=== PATIENT | female | born 1980 | race Caucasian/White ===

== ENCOUNTER 2021-06-01 13:36 | Outpatient (CLI) | payer BC, SELFPAY ==
--- NOTE | 2021-06-01 13:49 | ECG_ITS ---
Measurements Intervals [place] Rate: 57 P: 51 IN: 131 QRS: 45 QRSD: 93 T: 18 QT: 406 QTc: 398 Interpretive Statements SINUS BRADYCARDIA WITH SINUS ARRHYTHMIA NONSPECIFIC ST ABNORMALITY ABNORMAL ECG NO PREVIOUS ECG AVAILABLE FOR COMPARISON Electronically Signed On 06-01-2021 18:07:46 CDT by Wilmar Werner M.D.
== END 2021-06-01 13:37 | disposition home or self-care (01) ==
LOC: ANHSURGERY 13:40
PROVIDERS: PCP Physician Assistant; Visit Provider Obstetrics & Gynecology
DX: N92.6 Irregular menstruation, unspecified (principal); Z87.891 Personal history of nicotine dependence; R94.31 Abnormal electrocardiogram [ECG] [EKG]
CPT/HCPCS: 36415; 86850; 86900; 86901; 93005

== ENCOUNTER 2021-06-02 00:19 | Day surgery (SDC) | payer BC, SELFPAY ==
[2021-05-27 13:57] VITALS: BMI 26.6
--- NOTE | 2021-05-27 14:07 | PC.NURSE ---
Report to the Outpatient Waiting Room, entrance under the green pavilion located off [facility], at time 8:00 on date 06/02/21. OR Time: 10:00. - You and your visitor will be asked a series of questions to screen for COVID 19 for your protection. - A mask is required within the hospital. One visitor will be allowed to accompany the patient into the hospital. Patients visitor will be instructed to remain with patient at all times or leave the building. We will allow the visitor to come back to the postoperative area when patient is ready. Preoperative COVID Testing Requirements: No COVID Test needed if: (proof is required; if not received patient will have Rapid Test prior to entry) - Patient has received COVID Vaccine at least 14 days prior to procedure date or - Patient has positive COVID test result within last 90 days of surgery date. COVID Test needed if above criteria is not met Patients may have clear liquids (water, carbonated beverages, clear teas, apple juice) until 3 hours prior to surgery (7:00) with a maximum of 20 ounces. - No food from midnight until time of surgery Take the following medications with a SIP of water the morning of surgery: FLUOXETINE Medications to discontinue per physician: N/A Date to take last dose: N/A Please no make-up, nail croatian, hairspray, perfume, deodorant, or body powder the day of surgery. No jewelry (including any body piercings) or valuables the day of surgery, leave them at home. Please take a shower or bath the night before, or the morning of, surgery with an antibacterial soap. Wear comfortable, loose fitting clothing. - Jewelry must be removed prior to entering the operating room. Rings and piercings that are not removed may be cut off. - The hospital will not accept responsibility for valuables. - Please leave all valuables, including medications, at home the day of surgery. If you are going home after surgery, a licensed bung driver must drive you home. - NO public transportation without another adult. - We recommend that an adult stay with you for 24 hours following discharge. - We also recommend that you do not drive, make important decision, drink alcoholic beverages, or take any drugs that were not prescribed by your health care provider for at least 24 hours after your discharge time. Follow any additional instructions given to you from your surgeon. Telephone instructions given to CAMRYN ELAINE and asked if any additional questions and then verbalized understanding. Patient advised to call surgeon office or pre surgery nurse liaison [phone] if any additional questions.
--- NOTE | 2021-06-01 18:06 | PM.IMHP ---
H&P: HPI History of Present Illness Date/Time: 06/01/21 18:06 40-year-old female 4 para 3003 presents with complaints of menstrual cycles lasting 5-7 days 3-5 day heavy clotting cramping underwent endometrial ablation approximately 1 year ago and this has not helped with her or cramping we have discussed multiple options and she desires to proceed with definitive therapy in the form of hysterectomy with ovarian preservation. Will not be performing tubal ligation as she has had this done in the past. Ultrasound revealed no significant abnormalities the uterus is generally enlarged globular recent Pap smear was also normal though she does have a history of abnormal Pap smear for which she had a LEEP conization performed in 2006. Chief Complaint: Menometrorrhagia Review of Systems Review of Systems: All systems reviewed & are unremarkable except as noted in HPI and below PMFSH Past Medical History Medical History Anxiety Depression Dizziness Encounter for IUD insertion 08/14/18 Mirena insertion 05/28/20 removal done in OR Headache HSV-2 infection Missed ab 12/21/10 suction d&c Screening mammogram, encounter for Surgical History Surgical History H/O LEEP 06/14/06 HGSIL, chronic endocervicitis H/O left wrist surgery History of bilateral salpingectomy 07/09/20 History of colposcopy with cervical biopsy 02/21/2008 History of endometrial ablation 07/09/20 hscope d&c/endometrial ablation/lscope salpingectomy History of foot surgery rt foot History of gynecologic surgery 05/28/20 lscope/hscope w/removal of IUD History of tonsillectomy Family History Family History Mother Diabetes mellitus Hypertension Grandparent Breast cancer maternal grandmother Father Diabetes mellitus Sibling Diabetes mellitus brother Social History Social History Smoking packs per day: 2 Smoking cigarettes per day: 40.0 Years smoked: 10 Smoking pack-years: 20.00 Smoking status: Former smoker Tobacco type: cigarettes Smoking end date: 02/20/06 Alcohol intake: never Substance use: never Substance use type: does not use Additional living arrangements comments: spouse 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 Gender identity (if verbalized by the patient): Female Sexual Orientation (if Verbalized by the Patient): Straight or Heterosexual Spiritual care concerns: No Meds Home Medications and Allergies Home Medications Medication Instructions Recorded Confirmed Type fluoxetine 20 mg capsule 20 mg PO DAILY 04/06/21 05/27/21 History Allergies Allergy/AdvReac Type Severity Reaction Status Date / Time diphenhydramine Allergy Intermediate Hypotension Verified 05/27/21 13:57 latex Allergy Intermediate Rash Verified 05/27/21 13:57 Exam Const: General: cooperative, healthy appearing and comfortable Resp: Effort & Inspection: normal respiratory effort Auscultation: clear to auscultation bilaterally Cardio: Rate: regular rate Rhythm: regular rhythm GI: Auscultation: normal bowel sounds : External Female Exam: normal external appearance Speculum Exam - Vagina: normal appearance of the vagina Speculum Exam - Cervix: normal appearance of the cervix Bimanual exam- vagina & uterus: enlarged ( 8-10 week size) and Uterine tenderness Bimanual Exam- Adnexa, other: normal adnexae Assessment and Plan Assessment and plan (1) Menometrorrhagia: Code(s): N92.1 - Excessive and frequent menstruation with irregular cycle Status: Acute (2) History of endometrial ablation: Code(s): Z98.890 - Other specified postprocedural states Status: Acute Additional Plan proceed with laparoscopic hysterectomy with ovarian preservat
[2021-06-02] VITALS (8 sets, daily range): BP systolic 89–115; BP diastolic 51–86; PULSE 66–94; RESP 12–20; TEMP 36.2–37.3; O2SAT 98–100
[2021-06-02] MEDS: ACETAMINOPHEN 500 MG TABLET 1000 MG PO (08:49)
--- NOTE | 2021-06-02 09:03 | WPDANESEPPF ---
Anes - Initial Pre Proc Eval Procedure: Operation Date: 06/02/21 10:00 Proposed Procedures p Robotic Assisted Total Laparoscopic Hysterectomy - Jose Miguel MD Date/Time: 06/02/21 09:03 Surgeon: Jose Miguel MD Pre Op Diagnosis: Irg Vag Bleeding Patient Data Age: 40 Gender: F Height: 1.68 m Weight: 75.4 kg Last Vital Signs Temp 36.6 C 06/02/21 08:57 Pulse 66 06/02/21 08:57 Resp 16 06/02/21 08:57 BP 99/51 L 06/02/21 08:57 Pulse Ox 100 06/02/21 08:57 Allergies Allergy/AdvReac Type Severity Reaction Status Date / Time diphenhydramine Allergy Intermediate Hypotension Verified 06/02/21 08:45 latex Allergy Intermediate Rash Verified 06/02/21 08:45 Home Medications Medication Instructions Recorded Confirmed Type fluoxetine 20 mg capsule 20 mg PO DAILY 04/06/21 06/02/21 History Patient hx anesthesia problems: none Family hx anesthesia problems: none Results Review: All pre-operative results and documents have been reviewed as part of the pre-operative evaluation. [facility] Past Medical History Medical History Anxiety Depression Dizziness Encounter for IUD insertion 08/14/18 Mirena insertion 05/28/20 removal done in OR Headache HSV-2 infection Missed ab 12/21/10 suction d&c Screening mammogram, encounter for Surgical History Surgical History H/O LEEP 06/14/06 HGSIL, chronic endocervicitis H/O left wrist surgery History of bilateral salpingectomy 07/09/20 History of colposcopy with cervical biopsy 02/21/2008 History of endometrial ablation 07/09/20 hscope d&c/endometrial ablation/lscope salpingectomy History of foot surgery rt foot History of gynecologic surgery 05/28/20 lscope/hscope w/removal of IUD History of tonsillectomy Family History Family History Mother Diabetes mellitus Hypertension Grandparent Breast cancer maternal grandmother Father Diabetes mellitus Sibling Diabetes mellitus brother Social History Social History Smoking packs per day: 2 Smoking cigarettes per day: 40.0 Years smoked: 10 Smoking pack-years: 20.00 Smoking status: Former smoker Tobacco type: cigarettes Smoking end date: 02/20/06 Alcohol intake: never Substance use: never Substance use type: does not use Living arrangements: with family Additional living arrangements comments: spouse 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 Gender identity (if verbalized by the patient): Female Sexual Orientation (if Verbalized by the Patient): Straight or Heterosexual Spiritual care concerns: No Anes - Eval Final PreProcedure Day of Procedure 06/02/21 09:03 Patient weight: overweight Heart: regular rate and rhythm Lungs: clear to auscultation and normal air movement Airway: Mallampati scale class II Neurological: alert and oriented Last oral intake: >/= 8 hours ASA classification: III Emergent: no Anesthetic plan: proceed Anesthesia type and monitoring: general ETT and standard monitoring Results Review: All pre-operative results and documents have been reviewed as part of the pre-operative evaluation. Informed Consent: The patient's anesthetic plan and its attendant risks and benefits were discussed with the patient/family/POA. Questions were solicited and answers provided to the satisfaction of the patient/family/POA.
[2021-06-02] MEDS: LACTATED RINGERS 1,000 ML 30 ML IV CONT ×2 (09:15→11:49)
[2021-06-02] MEDS: KETOROLAC 15 MG/ML VIAL (*BKC) IV PUSH (09:15)
--- NOTE | 2021-06-02 09:27 | WPDHPUPDATE1 ---
History and Physical Update Update Date/Time: 06/02/21 09:27 History and Physical has been reviewed, including an updated exam of the patient. There are NO changes in the patient's condition. Risks, benefits, and alternatives have been discussed and questions answered. Patient agrees to proceed with procedure.
--- NOTE | 2021-06-02 11:34 | PM.OP ---
Procedure Note - Brief Procedure Note - Brief Date of procedure: 06/02/21 Pre-op diagnosis: Irg Vag Bleeding Failed endometrial ablation Post-op diagnosis: Same Procedure performed: 1. Robotic assisted laparoscopic hysterectomy Description of procedure: Patient prepped see. Cervical concerns placed for tumor throughout the case. Abdominal trocar sites were then marked placed under direct visualization. Once the trocars were placed or tested Kayla system. Surgeon moved to the console and using the bipolar the utero-ovarian ligaments bilaterally cauterized and cut and was then cauterized and cut as well. Bladder flap was developed without difficulty and the uterine vessels were skeletonized. These were then cauterized cut to decrease the vascular supply to the uterus. Anterior cul-de-sac was then entered and cut circumferentially around the cervix to separate the cervix from the vagina. Uterus was delivered into the vagina and the cuff was closed using a V lock suture from the right angle to midline in the left angle to midline. Irrigation is undertaken there was no bleeding. Gas was allowed to escape incisions approximated using 4-0 Monocryl after the instruments were removed. Patient sent recovery room in stable condition. Anesthesia: GETA Surgeon: Jose Miguel MD Estimated blood loss (mL): 50 Drains: No Packing: No Pathology: Yes Complications: No immediate complications Condition: Stable Disposition: PACU Findings: Mildly nauseous uterus. Ovaries without abnormality. Tubes surgically absent from prior tubal ligation.
[2021-06-02] MEDS: fentaNYL CITRATE INJ (*CRX) 100 MCG/2 ML VIAL 25 MCG IV PUSH ×3 (12:30→12:45)
[2021-06-02] MEDS: LORATADINE 10 MG TABLET PO (12:37)
[2021-06-02] MEDS: DEXTROSE 5%/LACTATED RINGERS 1,000 ML 125 ML IV CONT (13:23)
--- NOTE | 2021-06-02 13:27 | OBPPTRN ---
1302 Patient transferred to post room #278 via bed. Support person present. Oriented to unit, room, information board, rooming in, admission packet and security measures. Patient verbalizes understanding.
[2021-06-02] MEDS: KETOROLAC 30 MG/ML VIAL (*BKC) IV PUSH (15:38)
[2021-06-02] MEDS: HYDROcodone/acetaminophen (*CRX) 5-325 MG TABLET 1 TAB PO (20:42)
[2021-06-03] VITALS: BP 80/40; PULSE 71; RESP 16; TEMP 36.7; O2SAT 98
[2021-06-03] MEDS: SODIUM CHLORIDE 0.9% IV 500 ML IV CONT (01:02)
[2021-06-03 01:14] LABS: Basophils Percent Auto 0.4 % (0.2-1.2); Eosinophils Absolute Auto 0.1 K/mm3 (0-0.3); Eosinophils Percent Auto 0.6 % (0-4.4); Hematocrit 35.1 % (37.0-47.0); Hemoglobin 11.7 g/dL (12.0-15.0); Immature Granulocyte Absolute 0.04 K/mm3 (0.00-0.031); Immature Granulocyte Percent A 0.4 % (0-0.5); Lymphocytes Absolute Auto 1.73 K/mm3 (0.9-3.2); Lymphocytes Percent Auto 16.8 % (18.3-44.2); Mean Corpuscular HGB Conc 33.3 g/dl (32-36); Mean Corpuscular Hemoglobin 30.6 pg (26-34); Mean Corpuscular Volume 91.9 fl (80-100); Mean Platelet Volume 10.8 fl (7.4-10.4); Monocytes Absolute Auto 0.5 K/mm3 (0.1-0.6); Monocytes Percent Auto 4.5 % (2.6-8.5); Neutrophils Percent Auto 77.3 % (45.5-73.1); Platelet Count Result 175 k/mm3 (150-375); Red Blood Count 3.82 M/mm3 (4.2-5.4); Red Cell Distribution Width 12.4 % (11.5-14.5); White Blood Count 10.3 K/mm3 (4.5-10.0)
[2021-06-03 01:24] LABS: Anion Gap 6 mmol/L (8-16); Blood Urea Nitrogen 7 mg/dL (7-17); Carbon Dioxide 22 mmol/L (22-30); Chloride 105 mmol/L (98-107); Estimated CRCL calculation 99 ml/min; Estimated Glomerular Filt Rate > 60; Glucose 168 mg/dL (65-110); Potassium 3.5 mmol/L (3.4-5.0); Sodium 133 mmol/L (137-145)
[2021-06-03 03:30] VITALS: BP 81/48; PULSE 70; RESP 16; TEMP 36.8; O2SAT 97
[2021-06-03] MEDS: DEXTROSE 5%/LACTATED RINGERS 1,000 ML 125 ML IV CONT (06:15)
[2021-06-03] MEDS: IBUPROFEN 600 MG TABLET PO (06:19)
--- NOTE | 2021-06-03 07:55 | PM.DS ---
DS: Admitting Diagnosis Discharge Date 06/03/2021 Admitting Diagnosis Menometrorrhagia/failed endometrial ablation DS: Summary Hospital Course Hospital Course: routine postop course. persistent issue with postural hypotension which she will f/u with PCP. Has seen cardiology in past as well. Time Spent with Patient Time attestation: Total time spent providing and/or coordinating discharge services: Exam GI: Inspection: incision (c/d/i) DS: Data Data Completed and Pending Pending studies at discharge: Pending at discharge 06/02/21 11:14 Surgical [PTH] Routine Labs on day of discharge: Labs from last 24 hours 06/03/21 06/03/21 01:06 01:06 WBC 10.3 H RBC 3.82 L Hgb 11.7 L Hct 35.1 L MCV 91.9 MCH 30.6 MCHC 33.3 RDW 12.4 Plt Count 175 MPV 10.8 H Immature Gran % (Auto) 0.4 Neut % (Auto) 77.3 H Lymph % (Auto) 16.8 L [place] % (Auto) 4.5 Eos % (Auto) 0.6 Baso % (Auto) 0.4 Lymph # (Auto) 1.73 [place] # (Auto) 0.5 Eos # (Auto) 0.1 Baso # (Auto) 0.0 Abs Immat Gran (auto) 0.04 H Absolute Neuts (auto) 8.0 H Absolute Nucleated RBC 0.0 Nucleated RBC % 0.0 Sodium 133 L Potassium 3.5 Chloride 105 Carbon Dioxide 22 Anion Gap 6 L BUN 7 Creatinine 0.60 L Estim Creat Clear Calc 99 Estimated GFR > 60 Glucose 168 H Calcium 8.0 L Discharge Plan Discharge Patient Disposition: Home, Self-Care Stand Alone Forms: General Discharge Instructions Follow-up/Referrals: Jose Miguel MD [Physician] - 2 Weeks Discharge Medications: New hydrocodone-acetaminophen 5-325 mg Tablet 1 tablet PO Q3H Qty: 20 RF: 0 ibuprofen 600 mg Tablet 600 mg PO Q6H PRN (Reason: Cramping) Qty: 30 RF: 0 Continued fluoxetine 20 mg capsule 20 mg PO DAILY RF: 0
[2021-06-03] MEDS: FLUoxetine HCL 20 MG CAPSULE PO (07:57)
[2021-06-03 08:00] VITALS: BP 101/59; PULSE 84; RESP 18; TEMP 36.9
--- NOTE | 2021-06-03 10:20 | P.PNAN_ITS ---
Anes - Prog Note Post-Op Date/Time: 06/03/21 10:20 Cardiovascular status: normal Respiratory status: normal Airway patency: baseline Mental status: baseline Post-Op hydration status: normal Vital Signs: Last Vital Signs Temp 36.9 C 06/03/21 08:00 Pulse 84 06/03/21 08:00 Resp 18 06/03/21 08:00 BP 101/59 L 06/03/21 08:00 Pulse Ox 97 06/03/21 03:30 Pain Score (VAS): 2 I/O: Intake & Output 06/02/21 06/03/21 06/03/21 23:59 07:59 15:59 Intake Total 1720 500 300 Balance 1720 500 300 Laboratory Tests 06/03/21 01:06 06/03/21 01:06 06/03/21 06/03/21 01:06 01:06 WBC 10.3 H RBC 3.82 L Hgb 11.7 L Hct 35.1 L MCV 91.9 MCH 30.6 MCHC 33.3 RDW 12.4 Plt Count 175 MPV 10.8 H Immature Gran % (Auto) 0.4 Neut % (Auto) 77.3 H Lymph % (Auto) 16.8 L [place] % (Auto) 4.5 Eos % (Auto) 0.6 Baso % (Auto) 0.4 Lymph # (Auto) 1.73 [place] # (Auto) 0.5 Eos # (Auto) 0.1 Baso # (Auto) 0.0 Abs Immat Gran (auto) 0.04 H Absolute Neuts (auto) 8.0 H Absolute Nucleated RBC 0.0 Nucleated RBC % 0.0 Sodium 133 L Potassium 3.5 Chloride 105 Carbon Dioxide 22 Anion Gap 6 L BUN 7 Creatinine 0.60 L Estim Creat Clear Calc 99 Estimated GFR > 60 Glucose 168 H Calcium 8.0 L Post-procedural complaints: none Patient Feedback: Patient satisfied with anesthetic care.
--- NOTE | 2021-06-03 11:28 | PC.NURSE ---
1115: Dr. Miguel notified of discharge. Informed that pt. was still dizzy after standing for few minutes. Dizziness goes away with sitting. States that she had this happen after her last infant was born. Dizziness lasted for months. Dr. Miguel aware of dizziness complaints and states he instructed pt. to call primary physician when she gets home and have this checked out. Pt. verbalized understanding. Very comfortable with discharge. States that she has lots of help at home and will take her time upon standing. No questions or concerns voiced. Very pleasant and cooperative.
== END 2021-06-03 11:40 | disposition home or self-care (01) ==
LOC: ANHSURGERY 09:18 → ANHOB2 06-03 07:59
PROVIDERS: Obstetrics & Gynecology; PCP Physician Assistant; Visit Provider Obstetrics & Gynecology
PROC: (CPT 58570; principal; 2021-06-02 10:00)
DX: N92.1 Excessive and frequent menstruation with irregular cycle (principal); N85.8 Other specified noninflammatory disorders of uterus; F41.8 Other specified anxiety disorders; Z87.891 Personal history of nicotine dependence
CPT/HCPCS: 58570; S2900; 36415; 80048; 85025; 88307; 99199; A9270; J1100; J1170; J1885; J2250; J2405; J2704; J2710; J3010; J7030; J7040; J7120; J7121

== ENCOUNTER 2021-06-10 07:52 | Outpatient (CLI) | payer BC, SELFPAY ==
--- NOTE | ~2021-06-10 | MM_ITS ---
EXAMINATION: MM screening mona BI w irma HISTORY: Screening mammogram TECHNIQUE: Craniocaudal and mediolateral oblique 3-D tomosynthesis images were obtained and synthetic 2-D images were generated. CAD analysis was submitted and interpreted. COMPARISON: No prior mammogram is available for comparison at this institution. BREAST PARENCHYMAL COMPOSITION: There are scattered areas of fibroglandular density. FINDINGS: There is a focal 5 mm irregular increased density in the posterior outer mid right breast ( craniocaudal Tomosynthesis image 31/64), without correlate on the MLO view. Diagnostic right mammogra m is recommended, with ultrasound if required. Otherwise no suspicious mass, architectural distortion, malignant calcification, skin thickening or r etraction of either breast is evident. IMPRESSION: 1. 5 mm irregular increased density in posterior outer mid right breast on craniocaudal view only 2. Diagnostic right mammogram is recommended, with ultrasound if required BI-RADS Category 0: Incomplete: Needs additional imaging evaluation. Reviewed, dictated and finalized at location A. IMPRESSION: 1. 5 mm irregular increased density in posterior outer mid right breast on cran iocaudal view only 2. Diagnostic right mammogram is recommended, with ultrasound if required BI-RADS Category 0: Incomplete: Needs additional imaging evaluation.
== END 2021-06-10 07:53 | disposition home or self-care (01) ==
PROVIDERS: PCP Physician Assistant; Visit Provider Obstetrics & Gynecology
DX: Z12.31 Encounter for screening mammogram for malignant neoplasm of breast (principal); R92.8 Other abnormal and inconclusive findings on diagnostic imaging of breast
CPT/HCPCS: 77063; 77067

== ENCOUNTER 2021-06-15 12:29 | Outpatient (CLI) | payer BC, SELFPAY ==
--- NOTE | ~2021-06-15 | MMUS_ITS ---
EXAMINATION: MM diagnostic mona RT w irma, US breast RT limited HISTORY: Follow-up right breast asymmetry TECHNIQUE: Additional 3-D tomosynthesis images of the right breast were performed and synthetic 2-D i mages were generated. CAD analysis was submitted and interpreted. High resolution Limited right breas t ultrasound was performed. COMPARISON: 06/10/2021 BREAST PARENCHYMAL COMPOSITION: Breast composed of scattered areas of fibroglandular density FINDINGS: MAMMOGRAPHIC FINDINGS: There are no suspicious masses, calcifications or architectural distortion in the right breast to sug gest malignancy. ULTRASOUND: Limited right breast ultrasound: Normal heterogeneous echotexture without focal solid or cystic mass. IMPRESSION: 1. No evidence for malignancy in the right breast. 2. Routine yearly screening mammogram and regular clinical breast examination are recommended. BI-RADS Category 1: Negative Reviewed, dictated and finalized at location A. IMPRESSION: 1. No evidence for malignancy in the right breast. 2. Routine yearly screening mammogram and regular clinical breast examination a re recommended. BI-RADS Category 1: Negative
== END 2021-06-15 12:30 | disposition home or self-care (01) ==
PROVIDERS: PCP Physician Assistant; Visit Provider Obstetrics & Gynecology
DX: R92.8 Other abnormal and inconclusive findings on diagnostic imaging of breast (principal)
CPT/HCPCS: 76642; 77061; 77065; G0279

== ENCOUNTER 2022-08-02 15:14 | Outpatient (CLI) | payer BC, SELFPAY ==
--- NOTE | ~2022-08-02 | MM_ITS ---
EXAMINATION: MM screening mona BI w irma HISTORY: Screening mammogram TECHNIQUE: Craniocaudal and mediolateral oblique 3-D tomosynthesis images were obtained and synthetic 2-D images were generated. CAD analysis was submitted and interpreted. COMPARISON: June 15, 2021 diagnostic right mammogram and limited right breast ultrasound examination May 21, 2021 bilateral screening mammogram BREAST PARENCHYMAL COMPOSITION: There are scattered areas of fibroglandular density. FINDINGS: There is no evidence of suspicious mass, calcification, or architectural distortion to sugg est malignancy in either breast. There has been no suspicious interval change. IMPRESSION: 1. No mammographic evidence of malignancy. 2. Recommend routine screening mammography in one year. BI-RADS Category 1: Negative Reviewed, dictated and finalized at location A.
== END 2022-08-02 15:15 | disposition home or self-care (01) ==
PROVIDERS: PCP Physician Assistant; Visit Provider Obstetrics & Gynecology
DX: Z12.31 Encounter for screening mammogram for malignant neoplasm of breast (principal)
CPT/HCPCS: 77063; 77067

== ENCOUNTER 2023-01-18 09:25 | Emergency (ER) | payer BC, SELFPAY ==
[2023-01-18] VITALS (17 sets, daily range): BP systolic 108–113; BP diastolic 71–83; PULSE 56–92; RESP 12–24; TEMP 37; O2SAT 97–100
--- NOTE | ~2023-01-18 | XR_ITS ---
Clinical Indication: Chest pain AP and lateral views of the chest: Comparison: 11/13/2006 Findings: The lungs are clear, without evidence of focal consolidation or pleural effusion. Cardiome diastinal silhouette is within normal limits. Bones and soft tissues are unremarkable. Impression: Normal chest. Reviewed, dictated and finalized at [facility]. [employer]MENT [employer] Impression: Normal chest.
--- NOTE | 2023-01-18 09:31 | ECG_ITS ---
Measurements Intervals [place] Rate: 85 P: 72 FL: 125 QRS: 23 QRSD: 89 T: 4 QT: 355 QTc: 424 Interpretive Statements SINUS RHYTHM WITH MARKED SINUS ARRHYTHMIA POSSIBLE LEFT ATRIAL ENLARGEMENT BORDERLINE ST-T WAVE ABNORMALITY- INFERIOR LEADS BASELINE ARTIFACT- I, II, III, AVR BORDERLINE ECG COMPARED TO ECG 06/01/2021 13:59:55 SINUS RHYTHM NOW PRESENT Electronically Signed On 01-18-2023 9:53:54 OUTREACH PROFESSIONAL by Moustapha Reza D.O.
--- NOTE | 2023-01-18 09:45 | ED.CHESTPAIN ---
HPI - Chest Pain General Chief Complaint: Chest Pain Stated Complaint: Chest pain Time Seen by Provider: 01/18/23 09:31 History of Present Illness HPI narrative: 42-year-old female with a history of low blood pressure present in the department for evaluation of substernal chest pain that radiates to her left arm. Patient reports symptoms started 1 hour prior to arrival. Patient denies any prior history of coronary artery disease. Patient has had a negative stress test. Patient denies any prior history of PE or DVT. Patient denies any prior history of gastric reflux or heartburn. She patient states she has had no recent coughs colds fevers or injuries. Related Data Home Medications Medication Instructions Recorded Confirmed fluoxetine 10 mg capsule mg 01/18/23 Allergies Allergy/AdvReac Type Severity Reaction Status Date / Time diphenhydramine Allergy Intermediate Hypotension Verified 01/18/23 09:33 latex Allergy Intermediate Rash Verified 01/18/23 09:33 Review of Systems Review of Systems: All systems reviewed & are unremarkable except as noted in HPI and below PMFSH Past Medical History Medical History (Updated 01/18/23 @ 13:46 by Linus Dunn MD) Anxiety Breast density Depression Dizziness Encounter for IUD insertion 08/14/18 Mirena insertion 05/28/20 removal done in OR Headache HSV-2 infection Missed ab 12/21/10 suction d&c Screening mammogram, encounter for Screening mammogram, encounter for Surgical History Surgical History H/O LEEP 06/14/06 HGSIL, chronic endocervicitis H/O left wrist surgery History of bilateral salpingectomy 07/09/20 History of colposcopy with cervical biopsy 02/21/2008 History of endometrial ablation 07/09/20 hscope d&c/endometrial ablation/lscope salpingectomy History of foot surgery rt foot History of gynecologic surgery 05/28/20 lscope/hscope w/removal of IUD History of robot-assisted laparoscopic hysterectomy (~06/02/21) RATLH failed ablation History of tonsillectomy Family History Family History Mother Diabetes mellitus Hypertension Grandparent Breast cancer maternal grandmother Father Diabetes mellitus Sibling Diabetes mellitus brother Social History Social History (Updated 04/12/22 @ 07:54 by Traci Dueñas, [facility]) Smoking packs per day: 2 Smoking cigarettes per day: 40.0 Years smoked: 10 Smoking pack-years: 20.00 Smoking status: Former smoker Tobacco type: cigarettes Smoking end date: 02/20/06 Alcohol intake: never Substance use: never Substance use type: does not use Living arrangements: other Additional living arrangements comments: Occupation/Education: occupation 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 HEAD: normocephalic, atraumatic. EYES: PERRLA/EOMI, conjunctivae clear. NOSE: Normal no drainage EARS:TMS clear with good light reflex. THROAT: Pharynx clear, no exudate. NECK: Supple. No adenopathy, no masses. RESPIRATORY: Airway patent, respirations nonlabored. Clear to auscultation bilaterally, no rales, rhonchi, wheezing. CARDIOVASCULAR: Regular rate and rhythm without murmurs rubs or gallops. ABDOMINAL: Soft, nontender, nondistended, normal bowel sounds MUSCULOSKELETAL: reproducible epigastric and chest wall tenderness to palpation NEURO: Alert. Cranial nerves II through XII intact. Good gait. Good coordination SKIN: Warm, dry. Normal Color Course Course Emergency Course: A 42-year-old female presenting to the emergency department for evaluation of chest pain. Patient is afebrile with no leuk
[2023-01-18 09:46] LABS: Basophils Absolute Auto 0.1 K/mm3 (0.0-0.1); Basophils Percent Auto 0.6 % (0.2-1.2); Eosinophils Absolute Auto 0.1 K/mm3 (0-0.3); Eosinophils Percent Auto 1.8 % (0-4.4); Hematocrit 40.8 % (37.0-47.0); Hemoglobin 13.7 g/dL (12.0-15.0); Immature Granulocyte Absolute 0.02 K/mm3 (0.00-0.031); Immature Granulocyte Percent A 0.3 % (0-0.5); Lymphocytes Absolute Auto 2.18 K/mm3 (0.9-3.2); Lymphocytes Percent Auto 27.8 % (18.3-44.2); Mean Corpuscular HGB Conc 33.6 g/dl (32-36); Mean Corpuscular Hemoglobin 30.2 pg (26-34); Mean Corpuscular Volume 90.1 fl (80-100); Mean Platelet Volume 10.8 fl (7.4-10.4); Monocytes Absolute Auto 0.5 K/mm3 (0.1-0.6); Monocytes Percent Auto 5.9 % (2.6-8.5); Neutrophils Percent Auto 63.6 % (45.5-73.1); Platelet Count Result 224 k/mm3 (150-375); Red Blood Count 4.53 M/mm3 (4.2-5.4); Red Cell Distribution Width 12.6 % (11.5-14.5); White Blood Count 7.8 K/mm3 (4.5-10.0)
[2023-01-18] MEDS: HYDROmorphone HCL INJ (*CRX) 1 MG/ML SYR 0.5 MG IV PUSH (09:51)
[2023-01-18 09:56] LABS: INR 0.9; Prothrombin Time 12.7 Seconds (11.1-14.7)
[2023-01-18 09:58] LABS: Partial Thromboplastin Time 25.5 SECONDS (22.3-36.8)
[2023-01-18 10:04] LABS: Alanine Aminotransferase 17 U/L (6-35); Albumin Level 4.4 g/dL (3.5-5.1); Alkaline Phosphatase 55 U/L (38-126); Anion Gap 9 mmol/L (8-16); Aspartate Amino Transferase 23 U/L (14-36); Blood Urea Nitrogen 6 mg/dL (7-17); Calcium 9.1 mg/dL (8.4-10.2); Carbon Dioxide 24 mmol/L (22-30); Chloride 104 mmol/L (98-107); Estimated CRCL calculation 97 ml/min; Estimated Glomerular Filt Rate > 60; Glucose 98 mg/dL (65-110); Lipase 88 U/L (23-300); Sodium 137 mmol/L (137-145)
[2023-01-18 10:14] LABS: Troponin I < 0.012 ng/mL (0.000-0.034)
[2023-01-18 10:15] LABS: D Dimer 0.32 ug/mL (<0.48)
[2023-01-18 10:49] LABS: Influenza A QL RT-PCR Negative (Negative); Influenza B QL RT-PCR Negative (Negative); RSV RNA, RT-PCR Negative (Negative); SARS-CoV-2 RNA PCR Negative (Negative)
[2023-01-18 13:05] LABS: Troponin I < 0.012 ng/mL (0.000-0.034)
[2023-01-18] MEDS: KETOROLAC 30 MG/ML VIAL (*BKC) IV PUSH (13:29)
== END 2023-01-18 14:09 | disposition home or self-care (01) ==
PROVIDERS: Physician Assistant; Emergency Provider Emergency Medicine; PCP Physician Assistant
DX: R07.89 Other chest pain (principal); Z79.899 Other long term (current) drug therapy; Z87.891 Personal history of nicotine dependence; Z20.822 Contact with and (suspected) exposure to COVID-19
CPT/HCPCS: 36415; 71046; 80053; 83690; 84484; 85025; 85380; 85610; 85730; 87637; 93005; 96374; 96375; 99284; J1170; J1885

== ENCOUNTER 2023-07-24 15:45 | Outpatient (RCR) | payer BC, SELFPAY ==
--- NOTE | 2023-04-28 13:49 | PTOPEVAL1 ---
Assessment and note entered by José Miguel Wallis, PT, DPT Evaluation Information Assessment Status Evaluation Diagnosis R hip pain Onset 2 years Subjective Information Pt reports anterior hip pain, in her inner groin area, pelvic girdle pain. She states it has progressed to where she has pain all the time now. She reports pain for the last 2 years, has gotten worse over the last 6 months, and increasingly worse in the last 2 months. Pt used to be a runner and has since had to quit because of increasing hip pain. Sitting crossed legged relieves her pain . Sitting for a long time will increase her pain and standing will decrease it a little bit. She does report a history of a R hip labral tear. Reported Pain Level Pain Score 5: Self Report Assessment PT Clinical Summary Christi presents to therapy today for her initial evaluation with a diagnosis of R hip pain. Today she demonstrates nick hip ROM and strength that is limited by pain in all directions. She demonstrates pelvic asymmetries in supine, with was able to be corrected with muscle energy techniques. She demonstrates a positive hip labral irritation nick with special test. She also reports various places of pain throughout her pelvis, with resistance. A consultation from a pelvic floor therapist is indicated to rule out pelvic floor involvement. Skilled therapy services are indicated to address pelvic instability, hip weakness, malalignment, and to return to PLOF. Plan of Care Interventions Electrical Stimulation,Gait Training,Hot Pack/Cold Pack,Manual Therapy,Neuro Re-education,Patient/ Caregiver Educati,Therapeutic Activities, Therapeutic Exercise PT Services Indicated Yes Treatment Frequency and 1-2x/wk for 12 visits Duration These treatments will address the objective and functional deficits as defined above. The patient will be advanced safely and appropriately in order for the patient to progress towards his/her prior level of function. Additional exercises will be introduced and as well as a comprehensive home exercise program upon discharge, if needed, ?to ensure carryover of functional gains achieved in the clinic. This treatment plan has been reviewed and agreement upon by the patient.
--- NOTE | 2023-05-19 14:49 | OPREHPOC ---
Outpatient Therapy Plan of Care This is a Multidisciplinary Plan of Care that may contain components documented by all disciplines (PT, OT, and ST.) PT Problem 1 PT Problem #1 Knowledge Deficit PT Goal 1 Goal 1. Independent HEP Target Visit 3 PT Problem 2 PT Problem #2 Pain PT Goal 1 Goal 1. Pain with palpation of pelvic floor no higher than 1/10 2. Pain with running no higher than 2/10 Target Visit 6 PT Problem 3 PT Problem #3 Impaired Strength PT Goal 1 Goal 1. Improve pelvic floor strength to 4/5 to decrease incontinence 2. Improve pelvic floor endurance to 10 seconds to decrease incontinence Target Visit 6 PT Problem 4 PT Problem #4 Impaired Functional ADLs PT Goal 1 Goal 1. Patient will report no more than 1 instance of incontinence in a 2 week time frame 2. Patient will void no more than 8 times a day and 1 time at night 3. Patient will report no activity limitations due to hip or pelvic pain Target Visit 6
--- NOTE | 2023-05-19 14:49 | PTOPPROG ---
Assessment and note entered by Heidi Grigsby DPT Evaluation Information Assessment Status Progress Diagnosis R hip pain Onset 2 years Subjective Information Pt reports anterior hip/groin pain for several years that is gradually worsening. Increases with sitting for prolonged periods like on bleachers. Cannot run due to pain. Highest pain 8/10 and lowest 4/10. Some improvement after SIJ MET a few weeks ago. Voids more than 10 times a day and at least 2 times at night. Can hold urge to void variable amounts of time, sometimes gets urge incontinence and sometimes can hold up to 5 minutes. Also gets stress incontinence. After voiding will have more incontinence. Incontinence 3-4 times a day and needs to change clothes/ underwear 2-3 times a day. Works from home so does not wear pads. Denies pain with urination. BM 1-2 times a day, no pain and no fecal incontinence. History of pelvic pain as long as she can remember , pain with sex, tampon, pap smears. Difficulty keeping tampons in. Pain with sex up to 6/10. Pt has been 4 times, 3 deliveries. All vaginal deliveries and had tearing with her first two. Diagnosed with endometriosis, ablation, tubal ligation, hysterectomy in 2021. No previous b/b issues. Patient goal: get back to running Assessment PT Clinical Summary The patient is presenting to skilled therapy with anterior R hip pain, a history of pelvic pain, as well as mixed incontinence. She presents with increased pelvic floor muscle tone, decreased pelvic floor strength and endurance, and SIJ impairments which are contributing to her pain and difficulty with activities like sitting and running and to her daily incontinence and need to change clothes. She will highly benefit from therapy to address these impairments in order to reduce pain, reduce incontinence, and improve overall function. Plan of Care Interventions Electrical Stimulation,Gait Training,Hot Pack/Cold Pack,Manual Therapy,Neuro Re-education,Patient/ Caregiver Education,Therapeutic Activities, Therapeutic Exercise PT Services Indicated Yes Treatment Frequency and 1-2 times a week for 5-10 visits Duration These treatments w
--- NOTE | 2023-06-12 14:26 | OPREHPOC ---
Outpatient Therapy Plan of Care This is a Multidisciplinary Plan of Care that may contain components documented by all disciplines (PT, OT, and ST.) PT Problem 1 PT Problem #1 Knowledge Deficit PT Goal 1 Goal 1. Independent HEP Target Visit 3 Progress Met PT Problem 2 PT Problem #2 Pain PT Goal 1 Goal 1. Pain with palpation of pelvic floor no higher than 1/10 2. Pain with running no higher than 2/10 Target Visit 12 Progress Met Comment 1. improved to 2/10 2. pt to try running after this visit PT Problem 3 PT Problem #3 Impaired Strength PT Goal 1 Goal 1. Improve pelvic floor strength to 4/5 to decrease incontinence 2. Improve pelvic floor endurance to 10 seconds to decrease incontinence Target Visit 12 Progress Partially Met Comment 1. improved to 3/5 2. met PT Problem 4 PT Problem #4 Impaired Functional ADLs PT Goal 1 Goal 1. Patient will report no more than 1 instance of incontinence in a 2 week time frame 2. Patient will void no more than 8 times a day and 1 time at night 3. Patient will report no activity limitations due to hip or pelvic pain Target Visit 12 Progress Partially Met
--- NOTE | 2023-06-12 14:26 | PTOPPROG ---
Assessment and note entered by Heidi Grigsby DPT Evaluation Information Assessment Status Progress Diagnosis R hip pain Onset 2 years Subjective Information Pt reports a drastic improvement over the last few weeks with pelvic floor therapy. States she can function throughout the day without needing taking ibuprofen. Also thinks her urinary urgency has improved and can hold 30-45 minutes depending on the situation. Highest pain in the last week 4/ 10 and lowest 0/10 and seems to be more in her lateral hip now. Denies urine leakage. Feels more therapy would be helpful at this time. Assessment PT Clinical Summary The patient has made excellent progress in therapy and reports significantly decreased pain overall, decreased urgency, and no incontinence. She demonstrates improved hip and core strength, improved pelvic floor strength and endurance, and decreased pelvic floor pain with palpation. Due to her progress but continued pain, plan to continue therapy to further address pain and urinary symptoms in order to return to full function. Plan of Care Interventions Electrical Stimulation,Gait Training,Hot Pack/Cold Pack,Manual Therapy,Neuro Re-education,Patient/ Caregiver Education,Therapeutic Activities, Therapeutic Exercise PT Services Indicated Yes Treatment Frequency and 1 time a week for 6 visits Duration These treatments will address the objective and functional deficits as defined above. The patient will be advanced safely and appropriately in order for the patient to progress towards his/her prior level of function. Additional exercises will be introduced and as well as a comprehensive home exercise program upon discharge, if needed, ?to ensure carryover of functional gains achieved in the clinic. This treatment plan has been reviewed and agreement upon by the patient.
--- NOTE | 2023-07-10 11:04 | PCPTNOTE ---
Patient called to cancel appointment on 07/10/23 due to illness.
--- NOTE | 2023-07-24 16:25 | OPREHPOC ---
Outpatient Therapy Plan of Care This is a Multidisciplinary Plan of Care that may contain components documented by all disciplines (PT, OT, and ST.) PT Problem 1 PT Problem #1 Knowledge Deficit PT Goal 1 Goal 1. Independent HEP Target Visit 3 Progress Met PT Problem 2 PT Problem #2 Pain PT Goal 1 Goal 1. Pain with palpation of pelvic floor no higher than 1/10 2. Pain with running no higher than 2/10 Target Visit 12 Progress Met PT Problem 3 PT Problem #3 Impaired Strength PT Goal 1 Goal 1. Improve pelvic floor strength to 4/5 to decrease incontinence 2. Improve pelvic floor endurance to 10 seconds to decrease incontinence Target Visit 12 Progress Partially Met Comment 1. improved to 3/5 2. met PT Problem 4 PT Problem #4 Impaired Functional ADLs PT Goal 1 Goal 1. Patient will report no more than 1 instance of incontinence in a 2 week time frame 2. Patient will void no more than 8 times a day and 1 time at night 3. Patient will report no activity limitations due to hip or pelvic pain Target Visit 12 Progress Met
--- NOTE | 2023-07-24 16:25 | PTOPDC ---
Assessment and note entered by Heidi Grigsby DPT Evaluation Information Assessment Status Discharge Diagnosis R hip pain Onset 2 years Subjective Information Highest pain in last week 2/10 after playing kickball with her kids. Lowest pain 0/10. Has been able to do some running intervals. No internal pelvic pain at this time. Reported Pain Level Pain Score 1: Self Report Assessment PT Clinical Summary The patient has made excellent progress in therapy and reports pain 2/10 highest in the last week. No urinary issues at this time. She reports no pelvic pain upon exam. She has also been able to interval running. Due to her progress, plan for discharge at this time. She has been educated in a thorough HEP and to follow up with MD and/or PT as this time. Plan of Care PT Services Indicated No
== END 2023-07-25 07:57 | disposition home or self-care (01) ==
LOC: ANHGOSHPT 15:45
PROVIDERS: PCP Physician Assistant; Visit Provider Obstetrics & Gynecology
DX: M25.559 Pain in unspecified hip (principal)
CPT/HCPCS: 97110; 97112; 97140; 97161; 97530

== ENCOUNTER 2023-09-06 14:04 | Outpatient (CLI) | payer BC, SELFPAY ==
--- NOTE | ~2023-09-06 | MM_ITS ---
EXAMINATION: MM screening mona BI w irma HISTORY: Screening TECHNIQUE: Craniocaudal and mediolateral oblique 3-D tomosynthesis images were obtained and synthetic 2-D images were generated. CAD analysis was submitted and interpreted. COMPARISON: 06/10/2021. BREAST PARENCHYMAL COMPOSITION: Not dense: There are scattered areas of fibroglandular density. FINDINGS: There is no evidence of suspicious mass, calcification, or architectural distortion to sugg est malignancy in either breast. There has been no suspicious interval change. IMPRESSION: 1. No mammographic evidence of malignancy. 2. Recommend routine screening mammography in one year. BI-RADS Category 1: Negative Reviewed, dictated and finalized at location B.
== END 2023-09-06 14:05 | disposition home or self-care (01) ==
LOC: ANHIMG 14:05
PROVIDERS: PCP Physician Assistant; Visit Provider Obstetrics & Gynecology
DX: Z12.31 Encounter for screening mammogram for malignant neoplasm of breast (principal)
CPT/HCPCS: 77063; 77067

== ENCOUNTER 2024-03-22 10:01 | Emergency (ER) | payer BC, SELFPAY ==
[2024-03-22] VITALS (8 sets, daily range): BP systolic 111–130; BP diastolic 70–83; PULSE 74–90; RESP 12–20; TEMP 37.1; O2SAT 100
--- NOTE | ~2024-03-22 | XR_ITS ---
EXAMINATION: XR chest 1V portable 03/22/2024 10:32 INDICATION: Left-sided weakness PROCEDURE: AP portable chest COMPARISON: Comparison to multiple prior studies sequentially, with oldest reviewed study dated 06/30. FINDINGS: The lungs are clear. The cardiomediastinal silhouette is within normal limits. There are no pleural effusions. There is no pneumothorax suspected. IMPRESSION: 1: NO ACUTE CARDIOPULMONARY DISEASE. Reviewed, dictated and finalized at location A. PRESSER
--- NOTE | ~2024-03-22 | CT_ITS ---
EXAMINATION: CTA BRAIN/CAROTID DATE: 03/22/2024 10:23 INDICATION: Stroke TECHNIQUE: Computed tomographic angiography (CTA) of the head and neck was performed with 100 mL Omni paque-350 intravenous contrast. Multiplanar reconstructions and maximum intensity projection 3D-recon structions of the carotid arteries and of the intracranial arteries were created by the technologist on a separate workstation. Automated exposure control and iterative reconstruction technique were emp loyed.The dose-length product was 948.17 mGy-cm. COMPARISON: None. FINDINGS: Carotid arteries: Aortic arch is normal in caliber with no atherosclerotic plaque or dissection. There is no evident at herosclerotic plaque with 0% stenosis of the right and left carotid bulbs relative to normal distal a rtery lumen diameter (NASCET criteria). Mild biapical pleural-parenchymal scarring. Superior mediasti num and visualized cervical soft tissues are unremarkable. Moderate cervical spondylosis. Intracranial arteries There is no hemodynamically significant stenosis in the vertebral, basilar and internal carotid arter ies. Vertebral arteries are codominant. There are no aneurysms identified. The right A1 and right P1 segments are patent. The left anterior cerebral circulation is supplied from the right internal carot id artery via a patent anterior communicating artery. The left posterior cerebral circulation is supp lied from the left internal carotid artery via a patent left posterior communicating artery. Cerebral arterial arborization appears symmetric. No abnormally enhancing brain lesions. Mucosal thickening t he bilateral maxillary sinuses. IMPRESSION: 1. 0% stenosis of the right and left carotid bulbs relative to normal distal artery lumen diameter (N ASCET criteria). 2. No cerebral hemodynamically significant stenosis, thrombosis or aneurysm. 3. Normal anatomic variant of the [place] with supply to the left anterior cerebral artery s upplied via right internal carotid artery and a patent right anterior to indicating artery and the le ft posterior circulation supplied from the left internal carotid artery and a patent left posterior c ommuting artery. Reviewed, dictated and finalized at location A. [facility]ACT[facility] IMPRESSION: 1. 0% stenosis of the right and left carotid bulbs relative to normal distal ar ashly lumen diameter (NASCET criteria). 2. No cerebral hemodynamically significant stenosis, thrombosis or aneurysm. 3. Normal anatomic variant of the [place] with supply to the left ante rior cerebral artery supplied via right internal carotid artery and a patent ri ght anterior to indicating artery and the left posterior circulation supplied f rom the left internal carotid artery and a patent left posterior commuting lorenzo ry.
--- NOTE | ~2024-03-22 | CT_ITS ---
History: Weakness, stroke suspected clinically PROCEDURE: CT head without contrast. COMPARISON: None TECHNIQUE: Axial imaging of the head performed from the skull base to the vertex without IV contrast. Sagittal a nd coronal reformations obtained. DLP: 605 mGy-cm FINDINGS: The ventricles are normal in size, shape and position. There is no mass, mass effect or midline shift. There is no abnormal extra-axial fluid collection or intracranial hemorrhage. Visualized paranasal sinuses are clear. The mastoid air cells are well aerated. No acute displaced fractures within the overlying cranium. Impression: No acute intracranial hemorrhage or suspicious mass effect. These findings were discussed with Dr. Thompson at 10:14 AM on 03/22/2024 Reviewed, dictated and finalized at location A. R BRAKEMAN Impression: No acute intracranial hemorrhage or suspicious mass effect. These findings were discussed with Dr. Thompson at 10:14 AM on 03/22/2024
--- NOTE | 2024-03-22 10:03 | ECG_ITS ---
Test Date: 2024-03-22 10:26:15 Measurements Intervals [place] Rate: 79 P: 76 TX: 148 QRS: 33 QRSD: 94 T: 31 QT: 368 QTc: 423 Interpretive Statements SINUS RHYTHM POSSIBLE LEFT ATRIAL ENLARGEMENT [-0.1mV P-WAVE IN V1/V2] No previous ECG available for comparison Electronically Signed On 03-22-2024 14:38:12 WELL FLOW OPERATOR by January Cervantes M.D.
--- OUTSIDE RECORDS SUMMARY | 2024-03-22 10:18 | XMS_ITS | Referral Summary ---
Author Organization [facility] [address] Address [address] [place] [address] Care Team Providers Care Electrician [employer] Name Role Phone Unavailable Primary Care Provider Unavailabl e Source Comments [facility],non-owned Affiliates and Associated Physician Practices is amultiple site organization consisting of ambulatory clinics and hospital sitesin [place], [place], [place] and [place]. This disclosure is being madepursuant to the Care Everywhere program and may not contain all information available regarding this patient. 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 Alwaysverify current medications with the patient. Medication Sig Dispensed Refills Start Date End Date Status sertraline (ZOLOFT) 100 MG tablet Take 100 mg by mouth once daily Active Vit-Fe Fumarate-FA (SE-BENNY 19 PO) Active Social History Tobacco Use Types Packs/Day Years Used Date Smoking Tobacco: Former Alcohol Use Standard Drinks/Week Comments Not Asked 0 (1 standard drink = 0.6 oz pur e alcohol) Sex and Gender Information Value Date Recorded Sex Assigned at Not on file Gender Identity Not on file Sexual Orientation Not on file Last Filed Vital Signs Vital Sign [place] Time Taken Comments Blood Pressure 110/78 01/15/2016 6:51 PM PREPRESS OPERATOR Pulse 76 01/15/2016 6:51 PM PREPRESS OPERATOR Temperature 37.1 ??C (98.7 ??F) 01/15/2016 6:51 PM CS T Respiratory Rate 20 01/15/2016 6:51 PM PREPRESS OPERATOR Oxygen Saturation 98% 01/15/2016 6:51 PM PREPRESS OPERATOR Inhaled Oxygen Concentration - - Weight 70.3 kg (155 lb) 01/30/2015 9:57 AM PREPRESS OPERATOR Height 167.6 cm (5' 6 ) 01/30/2015 9:57 AM PREPRESS OPERATOR Body Mass Index 25.02 01/30/2015 9:57 AM PREPRESS OPERATOR Plan of Treatment [place] [address] Christi Franklin Personal/Famil y Self [address] [place] [id number]
--- OUTSIDE RECORDS SUMMARY | 2024-03-22 10:18 | XMS_ITS | Data Portability ---
Author Organization DELIO BINTAMildred Banerjee Address [address] [place] [address] Care Team Providers Care Chief Accounting Officer Name Role Phone CLINT PHIPPS Primary Care Provider Unavailab le Assessment Encounter Date Assessment Date Assessment LastModified by Organization Details LastModified Time 08/02/2023 08/02/2023 Mammogram scheduled end of august at [facility] exam just completed Dental visit in September. [email or web address] Not available 08/02/2023 08:49:50 Plan of Treatment Reminders Order Date Submit Date Provider Last Modified By Organization Details Last Modified Time Details Appointments None recorded. Lab TSH + free T4, serum 2023 024 [facility], [address], [place], [address], 4 09:40:05 CMP, serum or plasma 2023 024 [facility], [place], [address], 4 09:14:51 CBC w/ auto diff 2023 024 [employer] [facility], [place], [address], 4 09:15:02 vitamin B12 + folate, serum or blood 2023 024 [facility], [place], [address], 4 09:40:05 lipid panel, serum 2023 024 [employer] [facility], Le[address] Da[address]le, [place], [address], 4 09:40:05 HbA1c (hemoglobi n A1c), blood 2023 024 [facility] [employer] [facility], [address], [place], [address], 4 09:15:19 Referral None recorded. Procedures None recorded. Surgeries None recorded. Imaging None recorded. Medication Orders fluoxetine 20 mg capsule 2023 024 [facility], [address], [place], [address], 4 09:08:15 Patient TargetsNo targets recorded. Patient InstructionsNo instructions recorded. Reason for Referral None Reported. Results Created Date Observation Date Name Description Value Unit Range Abnormal Flag Note LastModifiedBy Organization Detail LastModifiedTime 09/06/19 24 09/06/2023 keren SMITH, kathy calderon, nataliia torres No observ ation record ed. [email or web address] [facility] [address], [place], [address], 09/06/2023 22:05:38 Result Notes None recorded. Problems Name Problem SNOMED Code Status Onset Date Resolution Date Notes Provider Name and Address Organization Details Recorded Time Long-term drug therapy Active 2023 KAYE Peng Attn: Anika fournier,[address] [facility], [place], [address], [facility] 4 23:00:06 Postural orthostatic tachycardia syndrome 120837506 Active 2023 KAYE Peng Attn: Anika fournier,[address] [facility], [place], [address], [facility] 4 23:00:39 Perimenopausal disorder 912083627 Active 2023 KAYE Peng Attn: Anika fournier,[address], [place], [address], [facility] 23:00:41 Problem Notes None recorded. Procedures Surgical History Date Name Laterality Status Provider Name and Address Organization Details Recorded Time Tonsillectomy completed Emmanuelle Garcia MA [facility] 08/02/2023 10:42:21 excision of bilateral fallopian tubes and ovaries completed Emmanuelle Garcia MA [facility] 08/02/2023 10:42:30 D & c after delivery completed Emmanuelle Garcia MA [facility] 08/02/2023 10:42:36 hysterectomy completed Emmanuelle Garcia MA [facility] 08/02/2023 10:42:42 LEEP completed Emmanuelle Garcia MA [facility] 08/02/2023 10:42:49 Imaging Results Imaging Date Name Status LastModified by Organiz ation Details LastModified Time 09/06/2023 MAMMO, screening, digital, bilateral completed [email or web address] [facility] [address], [place], [address], 09/06/2023 22:05:38 Procedure Notes None recorded. Medical Equipment None Reported. Allergies No known drug allergies Medications Name Sig Start Date Stop Date Status Note LastModified by Organization Details LastModified Time doxycycline hyclate 100 mg capsule TAKE 1 CAPSULE BY MOUTH TWICE DAILY 08/01 completed Not Available Not Available Not Available prednisone 20 mg tablet TAKE 2 TABLETS BY MOUTH ONCE DAILY FOR 5 DAYS 08/01 completed Not Available Not Available Not Available ciprofloxaci n 250 mg tablet TAKE 1 TABLET BY MOUTH TWICE DAILY FOR 5 DAYS 08/01 completed Not Available Not Available Not Available prednisone 50 mg tablet TAKE 1 TABLET BY MOUTH ONCE DAILY FOR 5 DAYS 08/01 completed Not Available Not Available Not Available fluoxetine 10 mg capsule TAKE 1 CAPSULE BY MOUTH ONCE DAILY FOR 7 DAYS OF EACH MONTH WITH 20 MG CAPSULE 08/01 completed Not Available Not Available Not Available cefdinir 300 mg capsule TAKE 1 CAPSULE BY MOUTH EVERY 12 HOURS 08/01 completed Not Available Not Available Not Available fluoxetine 20 mg capsule Take 1 capsule every day by oral route. active Not Available Not Available No t Available fluticasone propionate 50 mcg/actuatio n nasal spray,suspen natalya USE 2 SPRAY(S) IN EACH NOSTRIL ONCE DAILY 08/01 completed Not Available Not Available Not Available fludrocortis one 0.1 mg tablet TAKE 1 TABLET BY MOUTH TWICE DAILY 08/01 completed Not Available Not Available Not Available amoxicillin 875 mg-potassium clavulanate 125 mg tablet 08/01 completed Not Available Not Available Not Available nitrofuranto in monohydrate/ macrocrystal s 100 mg capsule TAKE 1 CAPSULE BY MOUTH EVERY 12 HOURS FOR 5 DAYS 08/01 completed Not Available Not Available Not Available Vitals Date Recorded Body weight Provider Name an d Address Organization Details Last Updated DateTime 08/02/2023 17510.5 g Emmanuelle Garcia MA [facility] 2023 08:37:03 Date Recorded Body mass index (BMI) Body height Provider Name and Address Organization Details Last Updated DateTime 08/02/2023 25.9 kg/m2 167.64 cm Emmanuelle Garcia MA [facility] 08/02/2023 08:37:06 Date Recorded Respiratory rate Provider Name a nd Address Organization Details Last Updated DateTime 08/02/2023 20 /min Emmanuelle Garcia MA [facility] 08/02/2023 08:38:50 Date Recorded Oxygen saturation Oxygen saturation in Arterial blood by Pulse oximetry Provider Name and Address Organization Details Last Updated DateTime 08/02/2023 99 % 99 % Emmanuelle Garcia MA [facility] 08/02/2023 08:39:20 Date Recorded Heart rate Provider Name an d Address Organization Details Last Updated DateTime 08/02/2023 73 /min Emmanuelle Garcia MA [facility] 2023 08:39:21 Date Recorded Systolic blood pressure Diastolic blood pressure Provider Name and Address Organization Details Last Updated DateTime 08/02/2023 116 mm[Hg] 82 mm[Hg] Emmanuelle Garcia MA [facility] 08/02/2023 08:40:43 Social History Question Answer Notes LastModified by Organizat ion Details LastModified Time Tobacco Smoking Status Former Smoker quit 2009 Emmanuelle Garcia MA [facility] [place] [facility] 08/02/2023 08:38:07 Do You Have An Advance Directive? No Information not available 08/02/2023 What Is Your Level Of Alcohol Consumption? Occasional Information not available 08/02/2023 Are You Blind Or Do You Have Difficulty Seeing? No Information not available 08/02/2023 What Is Your Level Of Caffeine Consumption? Moderate Information not available 08/02/2023 In The 14 Days Before Symptom Onset, Have You Had Close Contact With A Laboratory-confir med COVID-19 While That Case Was Ill? No Information not available 08/01/2023 In The 14 Days Before Symptom Onset, Have You Had Close Contact With A Person Who Is Under Investigation For COVID-19 While That Person Was Ill? No Information not available 08/01/2023 Have You Been To An Area Known To Be High Risk For COVID-19? No Information not available 08/01/2023 Are You Deaf Or Do You Have Serious Difficulty Hearing? No Information not available 08/02/2023 What Type Of Diet Are You Following? REGULAR Information not available 08/02/2023 Are There Any Guns Present In Your Home? No Information not available 08/02/2023 What Was The Date Of Your Most Recent Tobacco Screening? 08/02/2023 Information not available 08/02/2023 Do You Use Your Seat Belt Or Car Seat Routinely? Yes Information not available 08/01/2023 Do You Have Smoke And Carbon Monoxide Detectors In Your Home? Yes Information not available 08/01/2023 Do You Use Any Illicit Or Recreational Drugs? No Information not available 08/02/2023 Do You Use Sunscreen Routinely? Yes Information not available 08/02/2023 Has Tobacco Cessation Counseling Been Provided? Yes Information not available 08/01/2023 On What Date Was Tobacco Cessation Counseling Provided? 08/02/2023 Information not available 08/02/2023 Do You Or Have You Ever Used Any Other Forms Of Tobacco Or Nicotine? No Information not available 08/02/2023 Sex: Female Functional Status Question Answer Note LastModified by Organization D etails LastModified Time Are you able to care for yourself? Yes Information not available 08/01/2023 What is your exercise level? Moderate Information not available 08/02/2023 Mental Status None recorded. Family History Relationship Description Onset Age of this Age Resolved Age Notes LastModified by Organization Details LastModified Time Unspecified Relation Asthma [email or web address] Not available 024 10:43:03 Unspecified Relation Depressive disorder [email or web address] Not available 2023 10:43:12 Unspecified Relation Diabetes mellitus [email or web address] Not available 2023 10:43:19 Unspecified Relation Migraine tcarterma Not available 2023 10:43:26 Unspecified Relation Malignant tumor of ovary tcarterma Not available 2023 10:43:32 Medical History Condition Response Coronary Artery Disease N Other N High Blood Pressure N Atrial Fibrillation N Kidney or Bladder Problems N Thyroid Problems N GI Problems N Depression Y COPD N Blood Clots N Skin Problems N Anemia N Heart Attack ([place]) N Anxiety Disorder Y Diabetes N Muscle, Joint, or Bone Problems N Seizures/Epilepsy N Acid Reflux (GERD) N Cancer N Stroke N Asthma N Allergies N High Cholesterol N Hepatitis N Liver Disease N Headaches N Heart Failure N Osteoporosis N Gynecological History Statement/Question Response Menses Monthly N Current Control Method Hysterectom y Obstetrics History GPAL:G 4 P 3 0 0 3 Type Value Full Term 3 Induced 0 Spontaneous 0 Premature 0 Living 3 Total 4 Past Encounters Encounter ID Performer Location Encounter Start Date Encounter Closed Date Diagnosis/Indication Diagnosis SNOMED-CT Code Diagnosis ICD10 Code Diagnosis Note [id number] KAYE Peng [facility] [place] [place] [address] [place] [address] 08/02/2023 08:31:13 08/02/2023 09:57:06 Adult health examination 770084950 Z00.01 wellness exam completed Perimenopa usal disorder 186343994 N95.9 Increase to fluoxetine 20mg daily. Long-term drug therapy 414513923 Z79.899 cmp, cbc and b12, folate labs are due Cholesterol screening 27 9814102 Z13.220 fasting lipids due. Diabetes m ellitus screening 599700730 Z13.1 annual a1c screening due. Thyroid di sorder screening 019620532 Z13.29 routine thyroid panel due. Postural o rthostatic tachycardia syndrome 232845098 G90.A pt is doing well , and very stable off medication now. she is keeping fluids up and salt. Health Concerns Section Related Observation LastModified by Organization Detai ls LastModified Time None Recorded Concern Status LastModified by Organization Details LastModified Time None Recorded Advance Directives Directive N: Payers None recorded. Notes Date Note Type Note Provider Name and Address Organization Details Recorded Time 08/02/2023 text/html RAY 2 years ago. She is very emotional , especially during what would be her cycle. it is getting worse. she is interested in dose increase on her fluoxetine. KAYE Peng Attn: Accounting,[address] [place], [address], [facility] 08/20/2023 23:01:37 OBGyn Episode No OBEpisode recorded.
--- OUTSIDE RECORDS SUMMARY | 2024-03-22 10:18 | XMS_ITS | Clinical Summary ---
Author Organization [facility] Address [address] [place] [address] Care Team Providers Care State'S Attorney Name Role Phone Ebonie George Primary Care Pr ovider Allergies Active Allergy Reactions Criticality Noted Date Comments Avocado Anaphylaxis High 01/30/2015 Latex Anaphylaxis High 01/30/2015 Peanut Anaphylaxis High 01/30/2015 Medications FLUoxetine (PROzac) 10 mg tablet/capsule Take 10 mg by mouth daily Active Active Problems No known active problems Social History Tobacco Use Types Packs/Day Years Used Date Smoking Tobacco: Former Alcohol Use Standard Drinks/Week Comments Yes 0 (1 standard drink = 0.6 oz pur e alcohol) RARE Personal Safety Answer Date Recorded Getting School Help Needed Not on file 05/05 Comments Unknown Sex and Gender Information Value Date Recorded Sex Assigned at Not on file Legal Sex Female 10:07 AM DIRECTOR CORPORATE COMPLIANCE Gender Identity Not on file Sexual Orientation Not on file Obstetrics History Last Filed Vital Signs Vital Sign Reading Time Taken Comments Blood Pressure - - Pulse - - Temperature - - Respiratory Rate - - Oxygen Saturation - - Inhaled Oxygen Concentration - - Weight 72.6 kg (160 lb) 11/11/2019 10:47 AM CDT Height 167.6 cm (5' 6 ) 11/11/2019 10:47 AM CDT Body Mass Index 25.82 11/11/2019 10:47 AM CDT Plan of Treatment Not on file Insurance [employer] PREFERRED BLUE ACCESS OOS Care Teams State'S Attorney Relationship Specialty Start Date End Date Ebonie George PA PCP - General Physician Informatics Analyst 10/21/19
--- OUTSIDE RECORDS SUMMARY | 2024-03-22 10:18 | XMS_ITS | Clinical Summary ---
Author Organization [facility] [employer] Address [address] [place] [address] Care Team Providers Care Valve Tester Name Role Phone Unavailable Primary Care Provider Unavailabl e Source Comments [facility],non-owned Affiliates and Associated Physician Practices is amultiple site organization consisting of ambulatory clinics and hospital sitesin [place], [place], [place] and [place]. This disclosure is being madepursuant to the Care Everywhere program and may not contain all information available regarding this patient. Last updated 17.[facility] [employer] Allergies Active Allergy Reactions Criticality Noted Date [...] Comments Blood Pressure 110/78 01/15/2016 6:51 PM ASSISTANT PROFESSOR OF SURGERY Pulse 76 01/15/2016 6:51 PM ASSISTANT PROFESSOR OF SURGERY Temperature 37.1 ??C (98.7 ??F) 01/15/2016 6:51 PM CS T Respiratory Rate 20 01/15/2016 6:51 PM ASSISTANT PROFESSOR OF SURGERY Oxygen Saturation 98% 01/15/2016 6:51 PM ASSISTANT PROFESSOR OF SURGERY Inhaled Oxygen Concentration - - Weight 70.3 kg (155 lb) 01/30/2015 9:57 AM ASSISTANT PROFESSOR OF SURGERY Height 167.6 cm (5' 6 ) 01/30/2015 9:57 AM ASSISTANT PROFESSOR OF SURGERY Body Mass Index 25.02 01/30/2015 9:57 AM ASSISTANT PROFESSOR OF SURGERY Plan of Treatment Health Maintenance Due Date Last Done Comments LIPID TESTING 1980 MAMMOGRAM 1980 PAP SMEAR 1980 HIV SCREENING 07/08/1995 HEPATITIS C SCREENING 07/03/1998 DTAP/TDAP/TD VACCINES (1 - Tdap) 07/08/1999 HEPATITIS B VACCINE (1 of 3 - 19+ 3-dose series) 07/08/1999 COVID-19 VACCINE ( - 2023-2 5 season) 2023 INFLUENZA VACCINE (#1) 2023 DEPRESSION SCREENING 02/21/2024 ZOSTER VACCINE (1 of 2) 2030 HIB VACCINE Aged Out No longer eligi ble based on patient's age to complete this topic HPV VACCINE Aged Out No longer eligi ble based on patient's age to complete this topic MENINGOCOCCAL (Group B) VACCINE Aged Out No longer eligible based on patient's age to complete this topic MENINGOCOCCAL VACCINE Aged Out No rogelio jose eligible based on patient's age to complete this topic PNEUMOCOCCAL VACCINE Aged Out No long er eligible based on patient's age to complete this [place] [address] Christi Franklin Personal/Famil y Self [address] [place] [address]
--- OUTSIDE RECORDS SUMMARY | 2024-03-22 10:18 | XMS_ITS | Patient Health Summary ---
Author Organization [facility] [employer] Address [address] [place] [address] Care Team Providers Care Application Architect Name Role Phone Unavailable Primary Care Provider Unavailabl e Note from [facility],non-owned Affiliates and Associated Physician Practices is amultiple site organization consisting of ambulatory clinics and hospital sitesin [place], [place], [place] and [place]. This disclosure is being madepursuant to the Care Everywhere program and may not contain all information available regarding this patient. Last updated 17.[facility] Allergies * Avocado(Anaphylaxis) -High Criticality * Latex(Anaphylaxis) -High Criticality * Peanut-Derived(Anaphylaxis) -High Criticality Medications * Be aware that medications may not be up to date on this document. Alwaysverify current medications with the patient. * sertraline (ZOLOFT) 100 MG tablet Take 100 mg by mouth once daily * Vit-Fe Fumarate-FA (SE-BENNY 19 PO) Social History Tobacco Use Types Packs/Day Years [...] Comments Blood Pressure 110/78 01/15/2016 6:51 PM ARTIST REPRESENTATIVE Pulse 76 01/15/2016 6:51 PM ARTIST REPRESENTATIVE Temperature 37.1 ??C (98.7 ??F) 01/15/2016 6:51 PM CS T Respiratory Rate 20 01/15/2016 6:51 PM ARTIST REPRESENTATIVE Oxygen Saturation 98% 01/15/2016 6:51 PM ARTIST REPRESENTATIVE Inhaled Oxygen Concentration - - Weight 70.3 kg (155 lb) 01/30/2015 9:57 AM ARTIST REPRESENTATIVE Height 167.6 cm (5' 6 ) 01/30/2015 9:57 AM ARTIST REPRESENTATIVE Body Mass Index 25.02 01/30/2015 9:57 AM ARTIST REPRESENTATIVE Procedures * URINALYSIS AUTO - POINT OF CARE (AMB) STL(Performed 01/15/2016) Performed for Dysuria * CARDIAC ECHOCARDIOGRAM COMPLETE ORDER(Performed 02/03/2015) * CARDIAC RHYTHM STRIP ORDER(Performed 02/03/2015) * HCG URINE QUALITATIVE - POINT OF CARE(Performed 01/30/2015) * DERMATOPATHOLOGY(Performed 01/01/2013) Results * URINALYSIS AUTO - POINT OF CARE (AMB) STL (01/15/2016) Clarity UA POCT clear Color UA POCT yellow Leukocyte UA 70 Negative Nitrite UA POCT positive Negative Urobilinogen UA 0.2 0.1 - 1.0 Protein UA POCT negative Negative pH UA 6.5 5.0 - 8.0 pH units Blood UA ++ Negative Specific [place] UA POCT 1.015 1.002 - 1.030 Ketone UA negative Negative Bilirubin UA POCT negativve Negative Glucose UA negative Negative Expiration Date [id number] Lot # [id number] QC Verified Yes Yes URINE / Unknown 01/15/2016 Juancho Lala [employer] [facility] - POINT OF CARE ORDERABLES * CARDIAC ECHOCARDIOGRAM COMPLETE ORDER (02/03/2015 2:34 PM ARTIST REPRESENTATIVE) Narrative 02/03/2015 2:34 PM ARTIST REPRESENTATIVE Ordered by an unspecified provider. Scanned Document ECHO ORDERABLES * CARDIAC RHYTHM STRIP ORDER (02/03/2015 2:34 PM ARTIST REPRESENTATIVE) Narrative 02/03/2015 2:34 PM ARTIST REPRESENTATIVE Ordered by an unspecified provider. Scanned Document CARDIAC SERVICES ORD ERABLES * HCG URINE QUALITATIVE - POINT OF CARE (IP) (01/30/2015 10:12 AM ARTIST REPRESENTATIVE) HCG Qual Urine Negative Negative [facility] POCT TESTING QC Verified Yes Yes [facility] POC T TESTING Urine specimen (specimen) URINE / Unknown 01/30/2015 10:12 AM ARTIST REPRESENTATIVE Uche Grace MD LAB - POINT OF CARE ORDERABLES [facility] POCT TEST[facility] [address] [phone] * PATHOLOGY TISSUE FOR DERMATOLOGY (01/01/2013 12:00 AM ARTIST REPRESENTATIVE) Result CASE: [id number] PATIENT: CAMRYN FRANKLIN PATHOLOGIC DIAGNOSIS: A. ??Left index finger distal phalanx: HYPERKERATOSIS with focal parakeratosis (see microscopic description and comment) B. ??Base right thumb proximal: HYPERKERATOSIS overlying a mildly papillated epidermis (see microscopic description and comment) CLINICAL DATA: A-B: Wart/Clavus. GROSS DESCRIPTION: A: Received is one formalin filled container labeled with the patient's name and designated left index finger distal phalanx. The specimen consists of a shave biopsy measuring 7x4x1 mm. Jar 0. B: Received is one formalin filled container labeled with the patient's name and designated base right thumb proximal. The specimen consists of a shave biopsy measuring 9x3x1 mm. Jar 0. MICROSCOPIC DESCRIPTION: SPECIMEN ??A: The epidermis on this volar skin shows a hyperkeratosis with focal parakeratosis. The underlying dermis shows a focal vascular proliferation. Grocott methenamine silver (GMS) stain fails to highlight fungal elements. Additional deeper sections were obtained and reviewed. COMMEMNT: Although focal parakeratosis can be seen in a clavus (corn) the histopathologic findings are not diagnostic. ??An early verruca cannot be completely excluded. Clinicopathological correlation is recommended. SPECIMEN ??B: The epidermis on this volar skin shows a hyperkeratosis. The epidermis is mildly papillated. The underlying dermis shows a focal vascular proliferation. Grocott methenamine silver (GMS) stain fails to highlight fungal elements. Additional deeper sections were obtained and reviewed. COMMENT: Based on the histopathologic findings a verruca is favored, however, the findings are not diagnostic and a clavus (corn) cannot be completely excluded. Clinicopathological correlation is recommended. Electronically signed out by Martha Prasad M.D., PhD. 01/04/2013 9:24:29AM [facility] Comment: Performed at: Dermatopathology Laboratory [facility] - Department of Dermatology [address] [place] [address], Room [address] [place] [address] Phone number: [phone] Toll Free: [phone] FAX: [phone] 01/01/2013 01/02/2013 Magnus Hernandez LAB - PATHOLOGY/CYTO LOGY ORDERABLES [facility] [address] [place] [address]. [address] [place] [address], [facility] [phone]
--- OUTSIDE RECORDS SUMMARY | 2024-03-22 10:18 | XMS_ITS | Data Portability ---
Author Organization [place] - [facility] [employer], Main Office Address [address] [place] [address] Assessment No assessment recorded. Plan of Treatment Reminders Order Date Submit Date Provider Last Modified By Organization Details Last Modified Time Details Appointments None recorded. Lab CMP, serum or plasma 2022 023 [facility], [address], [place], [address], 3 03:25:28 CBC w/ auto diff 2022 023 [facility], [address], [place], [address], 3 03:25:30 TSH + free T4, serum 2022 023 [facility], [address], [place], [address], 3 03:25:26 lipid panel, serum 2022 023 [facility], [address], [place], [address], 3 03:25:28 HbA1c (hemoglobin A1c), blood 2022 023 [facility], [address], [place], [address], 3 03:25:29 Referral None recorded. Procedures None recorded. Surgeries None recorded. Imaging None recorded. Medication Orders fluoxetine 10 mg capsule [address] [facility], [address], [place], [place], [address], 3 12:44:32 cefdinir 300 mg capsule [address] [facility], [address], [place], [address], 3 14:57:07 prednisone 20 mg tablet [address] [facility], [address], [place], [address], 3 14:57:02 fluticasone propionate 50 mcg/actuati on nasal spray,suspe nsion 2022 023 [facility], [address], [place], [address], 3 12:45:03 Patient TargetsNo targets recorded. Patient InstructionsNo instructions recorded. Reason for Referral None Reported. 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 Negat hailey resul ts shoul d be treat ed as presu mptiv e and, if incon siste nt with clini claudio signs and sympt oms neces udong for patie nt manag ement , shoul d be teste d with diffe rent autho rized or clear ed molec ular tests . Negat hailey resul ts do not precl ude SARS- Co-V- 2 infec tion and shoul d not be used as the sole basis for patie nt manag ement decis ions. Negat hailey resul ts shoul d be consi dered in the ann xt of a patie nt's recen t expos ures, histo ry and the prese nce of clini claudio signs and sympt oms consi stent with COVID -19. Joellen e kelsi w the Fact Sheet s for healt h care provi ders and patie nts at the [facility] te: https ://gl oalpo into care. abbot t/en/ produ ct-de tails /id-n ow-co vid-1 9.htm l Metho dolog y: Isoth ermal Nucle ic Acid Ampli ficat ion Not Available [facility] (Lab) [address] [place], [address], 07/06/2020 10:00:04 07/10/19 21 07/09/2020 pregn shawn test, urine ur preg negati ve TESTI NG PERFO RMED BY SURGI CLAUDIO SERVI BEATRIZ PERSO NNEL. Not Available [facility] (Lab) [address] [place], [address], 07/09/2020 10:41:16 07/10/19 21 07/09/2020 pregn shawn test, urine lot no. [id number] Not Available [facility] (Lab) [address] [place], [address], 07/09/2020 10:41:16 07/10/19 21 07/09/2020 pregn shawn test, urine pos QC positi ve Not Available [facility] (Lab) [address] [place], [address], 07/09/2020 10:41:16 07/10/19 21 07/09/2020 pregn shawn test, urine neg QC negati ve Not Available [facility] (Lab) [address] [place], [address], 07/09/2020 10:41:16 06/17/19 23 06/17/2022 TSH+F REE T4 TSH 2.12 mIU/L normal Refer ence Range > or = 20 Years 0.40- 4.50 Pregn shawn Range s First trime ster 0.26- 2.66 Secon d trime ster 0.55- 2.73 Third trime ster 0.43- 2.91 Not Available [address], [address], 06/17/2022 03:25:26 06/17/19 23 06/17/2022 TSH+F REE T4 T4, free 1.1 NG/dL 0.8-1. 8 normal Not Available [address], [address], 06/17/2022 03:25:26 06/17/19 23 06/17/2022 LIPID PANEL WITH RATIO S cholesterol, total 194 mg/dL <200 normal Not Available [address], [address], 06/17/2022 03:25:28 06/17/19 23 06/17/2022 LIPID PANEL WITH RATIO S HDL cholesterol 62 mg/dL > or = 50 normal Not Available [address], [address], 06/17/2022 03:25:28 06/17/19 23 06/17/2022 LIPID PANEL WITH RATIO S triglyceride s 67 mg/dL <150 normal Not Available [address], [address], 06/17/2022 03:25:28 06/17/19 23 06/17/2022 LIPID PANEL WITH RATIO S LDL-choleste rol 116 mg/dL _(claudio c) high Refer ence range : <100 Wiliam able range <100 mg/dL for prima ry preve ntion ; <70 mg/dL for patie nts with CHD or diabe tic patie nts with > or = 2 CHD risk facto rs. LDL-C is now calcu lated using the Elisha n-Hop kins calcu milton akbar, which is a valid ated novel liane sosa than the Fried jeny robinsonat ion in the estim ation of LDL-C . Elisha akbar SS et al. HEATHER. 2013; 310(1 9): 2061- 2068 (http ://ed ucati on.Qu jerriDi [employer]. com/f aq/FA Q164) Not Available [facility] [address] [address] [place], [address], 06/17/2022 03:25:28 06/17/19 23 06/17/2022 LIPID PANEL WITH RATIO S chol/HDLC ratio 3.1 (calc ) <5.0 normal Not Available [address] [address] [place], [address], 06/17/2022 03:25:28 06/17/19 23 06/17/2022 LIPID PANEL WITH RATIO S LDL/HDL ratio 1.9 (calc ) Below avera ge Risk: <2.34 [place] ge Risk: 2.35- 4.12 Moder ate Risk: 4.13- 5.56 High Risk: >5.57 Not Available [address] [address] [place], [address], 06/17/2022 03:25:28 06/17/1906/17/2022 LIPID PANEL WITH RATIO S non HDL cholesterol 132 mg/dL _(claudio c) <130 high For patie nts with diabe alvarado plus 1 major ASCVD risk facto r, treat ing to a non-H DL-C goal of <100 mg/dL (LDL- C of <70 mg/dL ) is madan razao n. Not Available [facility] [address] [address] [place], [address], 06/17/2022 03:25:28 06/17/19 23 06/17/2022 COMPR EHENS HAILEY METAB OLIC PANEL glucose 94 mg/dL 65-99 normal Fasti ng refer ence inter honey Not Available [facility] [address] [address] [place], [address], 06/17/2022 03:25:28 06/17/19 23 06/17/2022 COMPR EHENS HAILEY METAB OLIC PANEL urea nitrogen (BUN) 6 mg/dL 7-25 low Not Available [address] [address] [place], [address], 06/17/2022 03:25:28 06/17/19 23 06/17/2022 COMPR EHENS HAILEY METAB OLIC PANEL creatinine 0.74 mg/dL 0.50-0 .99 normal Not Available [facility] [address], [address], 06/17/2022 03:25:28 06/17/19 23 06/17/2022 COMPR EHENS HAILEY METAB OLIC PANEL eGFR 104 mL/mi n/1.7 3m2 > or = 60 normal The eGFR is based on the CKD-E PI 2020 equat ion. To calcu late the new eGFR from a previ ous Creat inine or Cysta tin C resul t, go to https ://nayely garcia/maureen del rosario/ kdoqi /gfr% 5Fcal culat or Not Available [address] [address] [place], [address], 06/17/2022 03:25:28 06/17/19 23 06/17/2022 COMPR EHENS HAILEY METAB OLIC PANEL BUN/creatini ne ratio 8 (calc ) 6-22 normal Not Available [address] [address] [place], [address], 06/17/2022 03:25:28 06/17/19 23 06/17/2022 COMPR EHENS HAILEY METAB OLIC PANEL sodium 139 mmol/ L 135-14 6 normal Not Available [address] [address] [place], [address], 06/17/2022 03:25:28 06/17/19 23 06/17/2022 COMPR EHENS HAILEY METAB OLIC PANEL potassium 4.0 mmol/ L 3.5-5. 3 normal Not Available [address], [address], 06/17/2022 03:25:28 06/17/19 23 06/17/2022 COMPR EHENS HAILEY METAB OLIC PANEL chloride 104 mmol/ L 98-110 normal Not Available [address], [address], 06/17/2022 03:25:28 06/17/19 23 06/17/2022 COMPR EHENS HALIEY METAB OLIC PANEL carbon dioxide 28 mmol/ L 20-32 normal Not Available [address], [address], 06/17/2022 03:25:28 06/17/19 23 06/17/2022 COMPR EHENS HAILEY METAB OLIC PANEL calcium 9.0 mg/dL 8.6-10 .2 normal Not Available [address], [address], 06/17/2022 03:25:28 06/17/19 23 06/17/2022 COMPR EHENS HAILEY METAB OLIC PANEL protein, total 6.6 g/dL 6.1-8. 1 normal Not Available [address], [address], 06/17/2022 03:25:28 06/17/19 23 06/17/2022 COMPR EHENS HAILEY METAB OLIC PANEL albumin 4.1 g/dL 3.6-5. 1 normal Not Available [address], [address], 06/17/2022 03:25:28 06/17/19 23 06/17/2022 COMPR EHENS HAILEY METAB OLIC PANEL globulin 2.5 g/dL_ (calc ) 1.9-3. 7 normal Not Available [address], [address], 06/17/2022 03:25:28 06/17/19 23 06/17/2022 COMPR EHENS HAILEY METAB OLIC PANEL albumin/glob ulin ratio 1.6 (calc ) 1.0-2. 5 normal Not Available [address], [address], 06/17/2022 03:25:28 06/17/19 23 06/17/2022 COMPR EHENS HAILEY METAB OLIC PANEL bilirubin, total 0.6 mg/dL 0.2-1. 2 normal Not Available [address], [address], 06/17/2022 03:25:28 06/17/19 23 06/17/2022 COMPR EHENS HAILEY METAB OLIC PANEL alkaline phosphatase 51 U/L 31-125 normal Not Available [address], [address], 06/17/2022 03:25:28 06/17/19 23 06/17/2022 COMPR EHENS HAILEY METAB OLIC PANEL AST 14 U/L 10-30 normal Not Available [address], [address], 06/17/2022 03:25:28 06/17/19 23 06/17/2022 COMPR EHENS HAILEY METAB OLIC PANEL ALT 10 U/L 6-29 normal Not Available [address], [address], 06/17/2022 03:25:28 06/17/19 23 06/17/2022 HEMOG LOBIN A1C hemoglobin A1C 5.0 %_of_ total _HGB <5.7 normal For the purpo se of keren vailg for the prese nce of diabe alvarado: <5.7% Consi stent with the absen ce of diabe alvarado 5.7-6 .4% Consi stent with incre ased risk for diabe alvarado (pred iabet es) > or =6.5% Consi stent with diabe alvarado This assay resul t is consi stent with a decre ased risk of diabe alvarado. Curre ntly, no conse nsus exist s bismark krause use of hemog lobin A1c for diagn osis of diabe alvarado in child john. Accor ding to Ameri can Diabe alvarado Assoc iatio n (ADA) guide lines , hemog lobin A1c <7.0% repre sents optim al contr ol in non-p regna nt diabe tic patie nts. Diffe rent ri cs may apply to speci fic patie nt popul ation s. [facility] of Medic al Care in Diabe alvarado(A DA). Not Available [address] [address] [place], [address], 06/17/2022 03:25:29 06/17/19 23 06/17/2022 CBC (INCL UDES DIFF/ PLT) white blood cell count 6.2 thous and/u L 3.8-10 .8 normal Not Available [address], [address], 06/17/2022 03:25:30 06/17/19 23 06/17/2022 CBC (INCL UDES DIFF/ PLT) red blood cell count 4.68 sara on/uL 3.80-5 .10 normal Not Available [facility] [address] [address] [place], [address], 06/17/2022 03:25:30 06/17/19 23 06/17/2022 CBC (INCL UDES DIFF/ PLT) hemoglobin 14.0 g/dL 11.7-1 5.5 normal Not Available [address] [place], [address], 06/17/2022 03:25:30 06/17/19 23 06/17/2022 CBC (INCL UDES DIFF/ PLT) hematocrit 42.4 % 35.0-4 5.0 normal Not Available [address], [address], 06/17/2022 03:25:30 06/17/19 23 06/17/2022 CBC (INCL UDES DIFF/ PLT) MCV 90.6 fL 80.0-1 00.0 normal Not Available [address], [address], 06/17/2022 03:25:30 06/17/19 23 06/17/2022 CBC (INCL UDES DIFF/ PLT) MCH 29.9 pg 27.0-3 3.0 normal Not Available [address], [address], 06/17/2022 03:25:30 06/17/19 23 06/17/2022 CBC (INCL UDES DIFF/ PLT) MCHC 33.0 g/dL 32.0-3 6.0 normal Not Available [address], [address], 06/17/2022 03:25:30 06/17/19 23 06/17/2022 CBC (INCL UDES DIFF/ PLT) RDW 12.0 % 11.0-1 5.0 normal Not Available [address], [address], 06/17/2022 03:25:30 06/17/19 23 06/17/2022 CBC (INCL UDES DIFF/ PLT) platelet count 218 thous and/u L 140-40 0 normal Not Available [address], [address], 06/17/2022 03:25:30 06/17/19 23 06/17/2022 CBC (INCL UDES DIFF/ PLT) MPV 11.9 fL 7.5-12 .5 normal Not Available [address], [address], 06/17/2022 03:25:30 06/17/19 23 06/17/2022 CBC (INCL UDES DIFF/ PLT) absolute neutrophils 3385 cells /uL 1500-7 800 normal Not Available [address], [address], 06/17/2022 03:25:30 06/17/19 23 06/17/2022 CBC (INCL UDES DIFF/ PLT) absolute lymphocytes 2046 cells /uL 850-39 00 normal Not Available [address], [address], 06/17/2022 03:25:30 06/17/19 23 06/17/2022 CBC (INCL UDES DIFF/ PLT) absolute monocytes 496 cells /uL 200-95 0 normal Not Available [address], [address], 06/17/2022 03:25:30 06/17/19 23 06/17/2022 CBC (INCL UDES DIFF/ PLT) absolute eosinophils 229 cells /uL 15-500 normal Not Available [address], [address], 06/17/2022 03:25:30 06/17/19 23 06/17/2022 CBC (INCL UDES DIFF/ PLT) absolute basophils 43 cells /uL 0-200 normal Not Available [address], [address], 06/17/2022 03:25:30 06/17/19 23 06/17/2022 CBC (INCL UDES DIFF/ PLT) neutrophils 54.6 % normal Not Available [address], [address], 06/17/2022 03:25:30 06/17/19 23 06/17/2022 CBC (INCL UDES DIFF/ PLT) lymphocytes 33.0 % normal Not Available [address], [address], 06/17/2022 03:25:30 06/17/19 23 06/17/2022 CBC (INCL UDES DIFF/ PLT) monocytes 8.0 % normal Not Available [facility] - [address], [address], 06/17/2022 03:25:30 06/17/19 23 06/17/2022 CBC (INCL UDES DIFF/ PLT) eosinophils 3.7 % normal Not Available [facility] [address] [address] [place], [address], 06/17/2022 03:25:30 06/17/19 23 06/17/2022 CBC (INCL UDES DIFF/ PLT) basophils 0.7 % normal Not Available [facility] - [address], [address], 06/17/2022 03:25:30 07/13/19 22 06/15/2021 MAMMO , diagn ostic , digit al, unila teral No observ ation record ed. [id number] [facility] [address], [place], [address], 04/20/2022 09:23:49 07/15/19 22 07/13/2021 imagi ng/di agnos tic resul t No observ ation record ed. [id number]. [id number] [facility] [address] [facility] [address], [place], [address], 04/20/2022 09:23:49 07/15/19 22 07/13/2021 stres s echoc ardio gram No observ ation record ed. MIGRATION. [id number] [facility] [address], [place], [address], 04/20/2022 09:23:49 08/28/19 22 real- time monit oring of heart rate varia bilit y (PROC ) No observ ation record ed. [id number] [facility] [address], [place], [address], 04/20/2022 09:23:49 01/05/2004/07/2022 PFT, compl ete No observ ation record ed. [email or web address] [facility] [address], [place], [address], 01/11/2023 12:23:54 Result Notes None recorded. Problems Name Problem SNOMED Code Status Onset Date Resolution Date Notes Provider Name and Address Organization Details Recorded Time Sciatica 41553539 Active Not Available [facility] 3 09:18:15 Mixed anxiety and depressive disorder 091494757 Active 2017 Not Available [facility] 3 09:18:15 Impaired glucose tolerance in 939947013 Active Not Available [facility] 3 09:18:15 Acute low back pain 620964141 Active 2021 Not Available [facility] 3 09:18:16 Orthostati c hypotensio n 47875541 Active 2021 Not Available [facility] 3 09:18:16 Genital herpes simplex 46823128 Active Not Available [facility] 3 09:18:16 Bacterial vaginosis 492659069 Active Not Available [facility] 3 09:18:16 Abnormal cervical Papanicola ou smear 005401891 Active h/o LEEP Not Available [facility] 3 09:18:16 Low blood pressure 36244526 Active 2021 Not Available [facility] 3 09:18:16 Discharge from nipple 28058772 Active Not Available [facility] 3 09:18:16 Premenstru al dysphoric disorder 074034 Active Not Available [facility] 3 09:18:16 Premature labor 2410566 Active Not Available [facility] 3 09:18:16 07937839 Completed 201706/11/2018 Not Available [facility] 3 09:18:17 state 14501604 Active Not Available [facility] 3 09:18:17 Upper respirator y infection 14217611 Active 2022 KAYE Peng [address], [address], [place], [address] , [facility] 3 13:12:04 Cough 25459521 Active 2022 KAYE Peng [address], [address], [place], [address] , [facility] 3 11:34:42 Acute sinusitis 22277752 Active 2022 KAYE Peng [address], [address], [place], [address] , [facility] 3 12:59:10 Acute left otitis media 814444903 Active 2022 KAYE Peng [address], [address], [place], [address] , [facility] 3 12:43:23 Congestion of nasal sinus 87462318 Active 2022 KAYE Peng [address], [address], [place], [address] , [facility] 3 12:43:49 Sinusitis 64497460 Active 2022 KAYE Peng [address], [place], [address] , [facility] 3 12:44:13 Costal chondritis 72938358 Active 2022 KAYE Peng [address], [place], [address] , [facility] 3 14:56:46 Problem Notes None recorded. 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 Not Available [facility] 2022 09:13:39 procedure on wrist completed Not Available [facility] 04/20/2022 09:13:39 Foot Surgery completed Not Available [facility] 04/20/2022 09:13:39 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 [employer]ER Procedure completed Not Available [facility] 04/20/2022 09:13:39 Tonsillectomy completed Not Available [facility] 04/20/2022 09:13:39 Imaging Results Imaging Date Name Status LastModified by Organization Details LastModified Time 07/13/2021 imaging/diagnostic result completed [id number] [facility] [address], [place], [address], 04/20/2022 09:23:49 06/15/2021 MAMMO, diagnostic, digital, unilateral completed [id number] [address], [place], [address], 04/20/2022 09:23:49 07/13/2021 stress echocardiogram completed [id number] [facility] [address], [place], [address], 04/20/2022 09:23:49 08/27/2021 real-time monitoring of heart rate variability (PROC) completed [id number] [facility] [address], [place], [address], 04/20/2022 09:23:49 04/07/2022 PFT, complete completed [email or web address] [facility] [address], [place], [address], 01/11/2023 12:23:54 Procedure Notes None recorded. Medical Equipment None Reported. 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 06/15 completed Not Available Not Available Not Available methocarbam ol 500 mg tablet Take 1 tablet 4 times a day by oral route. active Not Available Not Available No t Available cetirizine 10 mg tablet TAKE 1 TABLET BY MOUTH EVERY DAY 04/30 completed Not Available Not Available Not Available azithromyci n 250 mg tablet TAKE 2 TABLETS BY MOUTH TODAY, THEN TAKE 1 TABLET DAILY FOR 4 DAYS 04/30 completed Not Available Not Available Not Available Prozac 40 mg capsule Take 1 capsule every day by oral route. 10/28 completed Not Available Not Available Not Available ibuprofen 800 mg tablet TAKE 1 TABLET BY MOUTH EVERY 8 HOURS 07/22 completed Not Available Not Available Not Available tramadol 37.5 mg-acetamin ophen 325 mg tablet active Not Available Not Available No t Available benzonatate 200 mg capsule TAKE 1 CAPSULE BY MOUTH THREE TIMES DAILY 11/25 completed Not Available Not Available Not Available valacyclovi r 1 gram tablet TAKE 1 TABLET(S) EVERY DAY BY ORAL ROUTE. active Not Available Not Available No t Available cephalexin 250 mg capsule active Not Available Not Available Not Available hydrocodone 5 mg-acetamin ophen 325 mg tablet TAKE 1 TABLET BY MOUTH EVERY 3 HOURS 06/14 completed Not Available Not Available Not Available meloxicam 15 mg tablet TAKE 1 TABLET BY MOUTH EVERY DAY active Not Available Not Available No t Available prednisone 20 mg tablet TAKE 2 TABLETS BY MOUTH ONCE DAILY FOR 5 DAYS 01/19 completed Not Available Not Available Not Available sertraline 100 mg tablet Take 1 tablet every day by oral route. 04/17 completed Not Available Not Available Not Available midodrine 5 mg tablet TAKE 1 TABLET BY MOUTH THREE TIMES DAILY 06/15 completed Not Available Not Available Not Available diphenoxyla te-atropine 2.5 mg-0.025 mg tablet take as directed 05/19 completed Not Available Not Available Not Available metronidazo le 500 mg tablet 04/17 completed Not Available Not Available Not Available valacyclovi r 500 mg tablet TAKE 1 TABLET BY MOUTH ONCE DAILY active Not Available Not Available No t Available sulfamethox azole 800 mg-trimetho prim 160 mg tablet active Not Available Not Available Not Available butalbital- acetaminoph en-caffeine 50 mg-325 mg-40 mg tablet active Not Available Not Available Not Available oxycodone-a cetaminophe n 5 mg-325 mg tablet TAKE 1 TABLET BY MOUTH EVERY 4 HOURS 06/15 completed Not Available Not Available Not Available magnesium oxide 400 mg (241.3 mg magnesium) tablet Take 1 tablet twice a day by oral route. active Not Available Not Available No t Available lorazepam 0.5 mg tablet active Not Available Not Available Not Available methocarbam ol 750 mg tablet Take 1 tablet 3 times a day by oral route as needed. active Not Available Not Available No t Available meclizine 25 mg tablet TAKE 1 TABLET BY MOUTH 4 TIMES DAILY NEEDED 06/15 completed Not Available Not Available Not Available benzonatate 100 mg capsule active Not Available Not Available Not Available cephalexin 500 mg capsule active Not Available Not Available Not Available erythromyci n 5 mg/gram (0.5 %) eye ointment apply to the left upper lid three times daily active Not Available Not Available No t Available oseltamivir 75 mg capsule TAKE 1 CAPSULE BY MOUTH EVERY DAY FOR 10 DAYS 10/28 completed Not Available Not Available Not Available Cipro 500 mg tablet Take 1 tablet every 12 hours by oral route. active Not Available Not Available No t Available nitrofurant oin macrocrysta l 100 mg capsule Take 1 capsule twice a day by oral route for 90 days. active Not Available Not Available No t Available prednisone 50 mg tablet TAKE 1 TABLET BY MOUTH ONCE DAILY FOR 5 DAYS active Not Available Not Available No t Available Tobrex 0.3 % eye ointment APPLY A SMALL AMOUNT to the left upper eyelid margin BY OPHTHALMI C ROUTE 2 TIMES PER DAY 06/01 completed Not Available Not Available Not Available fluoxetine 10 mg capsule TAKE 1 CAPSULE BY MOUTH ONCE DAILY FOR 7 DAYS OF EACH MONTH WITH 20 MG CAPSULE active Not Available Not Available No t Available mupirocin 2 % topical ointment APPLY TWICE A DAY TO LEFT CHEEK X 14 DAYS FOR IMPETIGO active Not Available Not Available No t Available azelastine 137 mcg (0.1 %) nasal spray active Not Available Not Available Not Available Tylenol-Cod eine #3 300 mg-30 mg tablet Take 1 tablet as needed by oral route as needed. active Not Available Not Available No t Available ibuprofen 600 mg tablet TAKE 1 TABLET BY MOUTH EVERY 6 HOURS NEEDED FOR CRAMPING 06/14 completed Not Available Not Available Not Available norethindro ne (contracept hailey) 0.35 mg tablet TAKE 1 TABLET BY MOUTH EVERY DAY 04/17 completed Not Available Not Available Not Available ondansetron 4 mg disintegrat ing tablet DISSOLVE 1 TABLET IN MOUTH EVERY 8 HOURS NEEDED 06/15 completed Not Available Not Available Not Available cefdinir 300 mg capsule TAKE 1 CAPSULE BY MOUTH EVERY 12 HOURS 01/19 completed Not Available Not Available Not Available fluoxetine 20 mg capsule TAKE 1 CAPSULE BY MOUTH ONCE DAILY active Not Available Not Available No t Available fluticasone propionate 50 mcg/actuati on nasal spray,suspe nsion USE 2 SPRAY(S) IN EACH NOSTRIL ONCE DAILY active Not Available Not Available No t Available clotrimazol e 1 % topical cream APPLY TO AFFECTED AND SURROUNDI NG AREAS OF SKIN TWICE A DAY IN THE MORNING AND IN THE EVENING active Not Available Not Available No t Available sertraline 50 mg tablet TAKE 1 TABLET BY MOUTH EVERY DAY active Not Available Not Available No t Available fludrocorti sone 0.1 mg tablet TAKE 1 TABLET BY MOUTH TWICE DAILY 11/25 completed Not Available Not Available Not Available naproxen 500 mg tablet active Not Available Not Available Not Available amoxicillin 875 mg-potassiu m clavulanate 125 mg tablet Take 1 tablet every 12 hours by oral route. 11/25 completed Not Available Not Available Not Available Ventolin HFA 90 mcg/actuati on aerosol inhaler active Not Available Not Available Not Available Sprintec (28) 0.25 mg-35 mcg tablet Take 1 tablet every day by oral route. active Not Available Not Available No t Available nitrofurant oin monohydrate /macrocryst als 100 mg capsule 04/13 completed Not Available Not Available Not Available Boostrix Tdap 2.5 Lf unit-8 mcg-5 Lf/0.5 mL intramuscul ar syringe ADM 0.5ML IM UTD active Not Available Not Available No t Available Se- 19 (with docusate) 29 mg iron-1 mg-25 mg tablet TAKE 1 TABLET(S) EVERY DAY BY ORAL ROUTE. 04/13 completed Not Available Not Available Not Available EpiPen 2-Lonnie 0.3 mg/0.3 mL injection, auto-inject or 04/17 completed Not Available Not Available Not Available 19 (with docusate) 29 mg iron-1 mg-25 mg tablet Take 1 tablet every day by oral route. active Not Available Not Available No t Available Flulaval Quad 60 mcg (15 mcg x 4)/0.5 mL IM suspension ADM 0.5ML IM UTD active Not Available Not Available No t Available Fluzone Quad 60 mcg (15 mcg x 4)/0.5 mL IM suspension 05/28 completed Not Available Not Available Not Available Fluarix Quad (PF) 60 mcg (15 mcg x 4)/0.5 mL IM syringe ADM 0.5ML IM UTD active Not Available Not Available No t Available Fluzone Quad (PF) 60 mcg (15 mcg x 4)/0.5 mL IM syringe PHARMACIS T ADMINISTE RED IMMUNIZAT ION ADMINISTE RED AT TIME OF DISPENSIN G active Not Available Not Available No t Available Vitals Date Recorded Body mass index (BMI) Body mass index (BMI) Body mass index (BMI) Provider Name and Address Organization Details Last Updated DateTime 04/20/2022 25.8 kg/m2 28.2 kg/m2 27.3 kg/m2 Not Available [employer] 04/20/2022 09:16:49 Date Recorded Body height Body height Body height Oxygen saturation Oxygen saturation in Arterial blood by Pulse oximetry Provider Name and Address Organization Details Last Updated DateTime 04/20/2022 167.64 cm 167.64 cm 167.64 cm 98 % 98 % Not Available [facility] 09:17:00 Date Recorded Oxygen saturation Oxygen saturation in Arterial blood by Pulse oximetry Heart rate Heart rate Provider Name and Address Organization Details Last Updated DateTime 04/20/2022 98 % 98 % 57 /min 68 /min Not Available [facility] 04/20/2022 09:17:01 Date Recorded Respiratory rate Respiratory rate Body temperature Body temperature Body temperature Provider Name and Address Organization Details Last Updated DateTime 16 /min 16 /min 97.3 [degF] 97.4 [degF] 97.6 [degF] Not Available [facility] 09:17:02 Date Recorded Body weight Body weight Body weight Provider Name and Address Organization Details Last Updated DateTime 04/20/2022 48428.78 g 61103.23 g 29105.[address] [facility] 04/20/2022 09:17:05 Date Recorded Body height Provider Name an d Address Organization Details Last Updated DateTime 06/15/2022 167.64 cm AUBRIE Crawley [facility] 06/15/2022 08:39:57 Date Recorded Body mass index (BMI) Body weight Provider Name and Address Organization Details Last Updated DateTime 06/15/2022 25.2 kg/m2 95314.41 g AURBIE Crawley [facility] [employer] [facility] 06/15/2022 08:42:43 Date Recorded Body temperature Provider Name a nd Address Organization Details Last Updated DateTime 06/15/2022 98.2 [degF] [facility] [employer] [facility] 06/15/2022 08:44:17 Date Recorded Heart rate Provider Name an d Address Organization Details Last Updated DateTime 06/15/2022 92 /min AUBRIE Crawley [facility] [employer] [facility] 06/15/2022 08:44:23 Date Recorded Oxygen saturation Oxygen saturation in Arterial blood by Pulse oximetry Provider Name and Address Organization Details Last Updated DateTime 06/15/2022 99 % 99 % [facility] Craw[facility] [employer] [facility] 06/15/2022 08:44:25 Date Recorded Body height Provider Name an d Address Organization Details Last Updated DateTime 11/25/2022 167.64 cm [facility] Craw[facility] [employer] 11/25/2022 12:24:24 Date Recorded Body mass index (BMI) Body weight Provider Name and Address Organization Details Last Updated DateTime 11/25/2022 24.9 kg/m2 02233.22 g [facility] Craw[facility] [employer] 11/25/2022 12:27:58 Date Recorded Body temperature Provider Name a nd Address Organization Details Last Updated DateTime 11/25/2022 98 [degF] AUBRIE Crawley [facility] [employer] [facility] 11/25/2022 12:28:53 Date Recorded Heart rate Provider Name an d Address Organization Details Last Updated DateTime 11/25/2022 88 /min AUBRIE Crawley [facility] [employer] [facility] 11/25/2022 12:28:56 Date Recorded Oxygen saturation Oxygen saturation in Arterial blood by Pulse oximetry Provider Name and Address Organization Details Last Updated DateTime 11/25/2022 99 % 99 % [facility] Craw[facility] [employer] 11/25/2022 12:28:58 Date Recorded Systolic blood pressure Diastolic blood pressure Systolic blood pressure Diastolic blood pressure Provider Name and Address Organization Details Last Updated DateTime 04/20/2022 110 mm[Hg] 62 mm[Hg] 90 mm[Hg] 60 mm[Hg] Not Available [facility] 3 09:16:57 Date Recorded Systolic blood pressure Diastolic blood pressure Systolic blood pressure Diastolic blood pressure Systolic blood pressure Diastolic blood pressure Systolic blood pressure Diastolic blood pressure Provider Name and Address Organization Details Last Updated DateTime 3 88 mm[Hg] 62 mm[Hg] 80 mm[Hg] 60 mm[Hg] 92 mm[Hg] 62 mm[Hg] 90 mm[Hg] 60 mm[Hg] Not Available [facility] 3 09:16:58 Date Recorded Systolic blood pressure Diastolic blood pressure Provider Name and Address Organization Details Last Updated DateTime 06/15/2022 122 mm[Hg] 78 mm[Hg] [facility] 06/15/2022 08:44:15 Date Recorded Systolic blood pressure Diastolic blood pressure Provider Name and Address Organization Details Last Updated DateTime 11/25/2022 118 mm[Hg] 74 mm[Hg] AUBRIE Crawley [facility] [employer] [facility] 11/25/2022 12:28:51 Date Recorded Systolic blood pressure Diastolic blood pressure Provider Name and Address Organization Details Last Updated DateTime 11/25/2022 90 mm[Hg] 70 mm[Hg] KAYE Peng [address], [facility] [address], [place], [address], [facility] [employer] [facility] 11/25/2022 12:43:10 Social History Question Answer Notes LastModified by Organizat ion Details LastModified Time Tobacco Smoking Status Former Smoker quit 2009 Not Available [facility] 04/20/2022 09:13:22 Do You Have An Advance Directive? No [id number] Information not available 04/20/2022 What Is Your Level Of Alcohol Consumption? None MIGRATION.43497 [id number] Information not available 04/20/2022 What Is Your Level Of Caffeine Consumption? Moderate MIGRATION.26524 [id number] Information not available 04/20/2022 How Much Tobacco Do You Chew? None MIGRATION.96620 [id number] Information not available 04/20/2022 In The 14 Days Before Symptom Onset, Have You Had Close Contact With A Laboratory-confir med COVID-19 While That Case Was Ill? No MIGRATION.[id number] Information not available 04/20/2022 In The 14 Days Before Symptom Onset, Have You Had Close Contact With A Person Who Is Under Investigation For COVID-19 While That Person Was Ill? No MIGRATION.74330 [id number] Information not available 04/20/2022 What Type Of Diet Are You Following? REGULAR MIGRATION.32008 84786 Information not available 04/20/2022 Which Illicit Or Recreational Drugs Have You Used? None MIGRATION.91753 [id number] Information not available 04/20/2022 Do You Or Have You Ever Used E-cigarettes Or Vape? 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 No MIGRATION.22043 17437 Information not available 04/20/2022 Are There Any Guns Present In Your Home? No MIGRATION.78696 [id number] Information not available 04/20/2022 Do You Use Insect Repellent Routinely? No MIGRATION.42643 56356 Information not available 04/20/2022 Do You Have A Medical Power Of Aerial Tram Operator? No MIGRATION.90161 70117 Information not available 04/20/2022 What Is Your Relationship Status? MIGRATION.57054 10703 Information not available 04/20/2022 Do You Use Your Seat Belt Or Car Seat Routinely? Yes MIGRATION.18943 76100 Information not available 04/20/2022 Do You Have Smoke And Carbon Monoxide Detectors In Your Home? Yes MIGRATION.78930 96712 Information not available 04/20/2022 How Much Tobacco Do You Smoke? 2 PPD MIGRATION.38354 65508 Information not available 04/20/2022 Do You Use Any Illicit Or Recreational Drugs? No MIGRATION.18623 15100 Information not available 04/20/2022 Do You Use Sunscreen Routinely? Yes MIGRATION.91471 59916 Information not available 04/20/2022 How Many Years Have You Smoked Tobacco? 13 MIGRATION.24263 96626 Information not available 04/20/2022 Have You Recently Traveled Abroad? No MIGRATION.74897 43557 Information not available 04/20/2022 Do You Have Any Dietary Restrictions? No MIGRATION.25229 67451 Information not available 04/20/2022 Sex: Unknown Functional Status Question Answer Note LastModified by Organizat ion Details LastModified Time What is your exercise level? Moderate [id number] Information not available 04/20/2022 Mental Status None recorded. Family History Relationship Description Onset Age of this Age Resolved Age Notes LastModified by Organization Details LastModified Time Mother Hypertensive disorder [id number] Not available 04/20/2022 09:13:41 Mother Diabetes mellitus MIGRATION.824 [id number] Not available 04/20/2022 09:13:41 Mother Hyperlipidem ia [id number] [id number] Not available 04/20/2022 09:13:41 Father Hyperlipidem ia MIGRATION.[id number] Not available 04/20/2022 09:13:41 Notes:no new health issues Medical History Condition Response HEADACHES/MIGRAINES Y ANXIETY DISORDER Y DEPRESSION (INCLUDING POST ) Y HERPES Y DIZZINESS Y Gynecological History Statement/Question Response How many live births 2 Abnormal Pap Y Date of LMP Sexually Active? Y Date of Last Pap 10/15/2018 Date of Last Pap Smear 10/15/2018 Current Control Method Sterilizati on Age at Menarche 15 Obstetrics History GPAL:G 4 P 3 0 1 3 Type Value Full Term 3 Spontaneous 1 Living 3 Total 4 Immunizations Vaccine Type Date Status Note Provider Nam e and Address Organization Details Recorded Time Influenza, split virus, quadrivalent, preservative completed Not Available [facility] 04/20/2022 09:23:36 Tdap 9 completed Not Available [facility] 04/20/2022 09:23:36 influenza, unspecified formulation 8 completed Not Available [facility] 04/20/2022 09:23:36 Past Encounters Encounter ID Performer Location Encounter Start Date Encounter Closed Date Diagnosis/Indication Diagnosis SNOMED-CT Code Diagnosis ICD10 Code Diagnosis Note [id number] _ATHENA_M IGRATION_ DEFAULT_1 _1 , 05/11/2020 00:00:00 05/11/2020 10:33:19 [id number] _ATHENA_M IGRATION_ DEFAULT_1 _1 , 05/18/2020 00:00:00 05/18/2020 12:06:58 [id number] [facility] [place] [address] [place] [address] 05/29/2020 00:00:00 06/19/2020 07:52:06 [id number] _ATHENA_M IGRATION_ DEFAULT_1 _1 , 06/15/2020 00:00:00 06/15/2020 11:25:15 [id number] _ATHENA_M IGRATION_ DEFAULT_1 _1 , 07/22/2020 00:00:00 07/22/2020 09:32:37 [id number] [facility] [place] [address] [place] [address] 06/14/2021 00:00:00 06/18/2021 13:35:24 [id number] [facility] [place] [address] [place] [address] 06/30/2021 00:00:00 07/20/2021 17:33:29 [id number] KAYE Peng [facility] [place] [address] [place] [address] 06/15/2022 08:39:04 06/15/2022 09:14:01 Adult health examination 340003545 Z00.00 annual wellness completed. all labs are due Premenstru al dysphoric disorder 914789 F32.81 boost to 30mg total of fluoxetine the week before cycle time frame. Orthostati c hypotension 60652786 I95.1 stable on florinef with cardiology . Cholesterol screening 27 6752222 Z13.220 Diabetes m ellitus screening 441134017 Z13.1 Long-term drug therapy 050819655 Z79.268 [id number] KAYE Peng [facility] [address] [place] [address] 11/25/2022 12:23:35 11/25/2022 12:49:58 Acute left otitis media 308744161 H66.92 start cefdinir 300mg bid course Sinusitis 13253222 J32.9 start prednisone 40mg daily x 5 days. start flonase ns as directed Health Concerns Section Related Observation LastModified by Organization Detai ls LastModified Time None Recorded Concern Status LastModified by Organization Details LastModified Time None Recorded Advance Directives Directive N: Payers Encounter Date Sequence Insurance Name Policy Number Policy Trevino Covered Member ID Trevino Member ID Guarantor Name 06/15/2022 1 [facility] [place] [id number] Christi E [employer] [id number] [employer] 11/25/2022 1 [facility] [place] [id number] Christi E [employer] [id number] Christi [employer] Notes Date Note Type Note Provider Name and Address Organization Details Recorded Time 06/14/2021 text/html Generic HPI TemplateReported bypatient.Notes:Pt states 2 weeks ago she had a hysterectomy and they told her they wouldn't release her unless she f/u w/us bc her BP was low. She says they told her it was 79/39 at one point. In 2014 she did see a oil boiler for this but cant remember the doctors name. Not Available [facility] [employer] 06/18/2021 13:35:24 06/30/2021 text/html Anxiety/Depressi onRep orted bypatient.Quality:sym ptoms improved; comes around her cycle Severity:denies suicidal ideations; able to maintain relationships; does not interfere with activities of daily living Duration:symptoms lasting over 2 weeks Onset/Timing:still present Context:no major life stressors Modifying Factors:medications as directed Associated Symptoms:denies homicidal ideations; no significant weight gain; no significant weight loss; no visual/auditory hallucinations; no delusions; no shortness of breath; mood good; no anxiety; no crying spells; no panic; no isolation; sleeping well; appetite good; energy good; no apathy; maintaining functionality; fatigue Not Available [employer] 07/20/2021 17:33:29 06/15/2022 text/html Anxiety/Depressi onRep orted bypatient.Severity:de nies suicidal ideations; able to maintain relationships; does not interfere with activities of daily living Context:no major life stressors Associated Symptoms:denies homicidal ideations; no significant weight gain; no significant weight loss; no visual/auditory hallucinations; no delusions; no shortness of breath pt also has orthostatic hypotension, a form of POTS, that she sees cardiology for twice yearly. she is on [facility] for this. KAYE Peng [address] [address], [place], [address], [employer] 06/15/2022 13:26:13 11/25/2022 text/html EaracheReported bypatient.Location:[facility] Quality:aching; sharp Severity:same Duration:started:; 1 week Timing:gradual Context:no sick contacts; no recent swimming/water in ear; no exposure to second hand smoke; no head trauma; not grinding teeth; no recent air travel Modifying Factors:does not hurt to lie on, or pull on ear; does not hurt to chew Associated Symptoms:no discharge from the ears; no hearing loss; no nose/sinus problems; no popping noise in the ears; no ringing in the ears;nose/sinus problems;popping noise in the ears KAYE Peng [address] [address], [place], [address], [employer] 12/20/2022 21:17:43 OBGyn Episode No OBEpisode recorded.
--- OUTSIDE RECORDS SUMMARY | 2024-03-22 10:18 | XMS_ITS | Referral Summary ---
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
--- OUTSIDE RECORDS SUMMARY | 2024-03-22 10:18 | XMS_ITS | CONTINUITY OF CARE DOCUMENT ---
Author Name chapinmichael chapinmichael Address Unknown Organization [facility] Address [address] [place] [address] Phone [phone] Care Team Providers Care Cosmetics Presser Name Role Phone Calvin Robison MD Unavailable [phone] [place] Unavailable [phone] [place] Unavailable PROBLEMS Condition Status Date Provider Notes Chest pain-type to be determined active Uche Grace MD Family History of Hyperlipidemia: active ? Gi carlos Grace MD Family History of Hypertension: active ? Uche Grace MD Dizziness active Uche Grace MD Hypotension active Uche Grace MD Tobacco use, quit active Seng Walters Syncope active Ashli Martinez Overweight active Ashli Martinez ENCOUNTERS Date Type Provider Location Encounter Diag nosis - In-person encounter Office Visit Calvin Robison MD [facility] - In-person encounter Office Visit Calvin Robison MD [facility] - In-person encounter Office Visit Uche Grace MD [facility] Overweight - In-person encounter Office Visit Uche Grace MD [facility] - In-person encounter Office Visit Uche Grace MD [facility] Syncope - In-person encounter Office Visit Uche Grace MD [facility] Chest pain-type to be determinedFamily History of Hyperlipidemia:Family History of Hypertension:DizzinessHy potensionTobacco use, quit VITAL SIGNS Date Observation Value Provider Body Mass Index (Ratio) 25.53 kg/m2 Nitin Robison MD blood pressure, diastolic 70 mm[Hg] carter Ribeiro blood pressure, systolic 102 mm[Hg] She randy Ribeiro pulse rate 72 /min Kiara Ribeiro oxygen saturation, oximetry 98 % Kiara Ribeiro respiratory rate E&M 18 /min Kiara Ribeiro blood pressure, cuff size regular carter Ribeiro weight E&M 158.2 [lb_av] Kiara Ribeiro height E&M 66 [in_i] Kiara Ribeiro Body Mass Index (Ratio) 25.98 kg/m2 Dagmar Bustamante blood pressure, diastolic 72 mm[Hg] Ca luba Hopkins blood pressure, systolic 98 mm[Hg] [facility] helle Hopkins oxygen saturation, oximetry 99 % Saray Alexandra pulse rate 71 /min Saray alex respiratory rate E&M 16 /min Carmen Elizabethand blood pressure, cuff size large Ca luba Hopkins weight E&M 161 [lb_av] Saray Hollan d height E&M 66 [in_i] Saray Elizabethan d Body Mass Index (Ratio) 27.60 kg/m2 Missy Martinez blood pressure, cuff size large Ashly verduzco Hopkins blood pressure, diastolic 76 mm[Hg] Mi luba Alexandra blood pressure, systolic 110 mm[Hg] Mitchell helle Alexandra oxygen saturation, oximetry 96 % Saray Alexandra respiratory rate E&M 16 /min Carmen ana Alexandra pulse rate 84 /min Saray Richardson isai weight E&M 171 [lb_av] Saray Richardson isai height E&M 66 [in_i] Saray Richardson isai Body Mass Index (Ratio) 27.92 kg/m2 Missy Youngmylene blood pressure, diastolic 68 mm[Hg] Ca therine [place] blood pressure, systolic 101 mm[Hg] Cat herine [place] pulse rate 66 /min Rosita Carlos oxygen saturation, oximetry 99 % Rosita Carlos respiratory rate E&M 16 /min Catheri ne [place] weight E&M 173 [lb_av] Rosita [place] blood pressure, cuff size regular Ca therine Carlos height E&M 66 [in_i] Rosita Carlos Body Mass Index (Ratio) 28.24 kg/m2 Missy Youngmylene blood pressure, diastolic 72 mm[Hg] Li [facility] blood pressure, systolic 108 mm[Hg] Corrie kLogic blood pressure, diastolic 72 mm[Hg] Ca therine [place] blood pressure, systolic 108 mm[Hg] Cat herine [place] oxygen saturation, oximetry 99 % Rosita Carlos respiratory rate E&M 16 /min Catheri ne [place] pulse rate 71 /min Rosita Carlos weight E&M 175 [lb_av] Rosita Carlos blood pressure, cuff size regular Ca therine [place] height E&M 66 [in_i] Rosita Carlos blood pressure, diastolic, right arm 68 m m[Hg] Karma Guzman blood pressure, systolic, right arm 99 mm [Hg] Karma Guzman blood pressure, diastolic 66 mm[Hg] In sharona Hinds blood pressure, systolic 101 mm[Hg] Keiry Hinds respiratory rate E&M 14 /min Karma Hinds pulse rate 56 /min Karma Hinds oxygen saturation, oximetry 98 % Karma Hinds Body Mass Index (Ratio) 25.79 kg/m2 Demetria Hinds weight E&M 159.8 [lb_av] Karma Hinds height E&M 66 [in_i] Karma Hinds ALLERGIES No Known Drug Allergies RESULTS Date Observation Value Provider Reference Range Interpretation Location 3 free thyroxine index 2.1 [facility] 1.2-4.9 3 triiodothyronine resin uptake 28 % [facility] 24-39 3 thyroxine, serum, total 7.4 ug/dL [facility] 4.5-12.0 3 thyroid stimulating hormone, serum 1.400 u[IU]/mL [facility] 0.450-4.500 3 calcium, serum 9.0 mg/dL [facility] 8.7-10.2 3 carbon dioxide, venous blood 22 mmol/L [facility] 20-29 3 chloride, serum 105 mmol/L [facility] 96-106 3 potassium, serum 4.4 mmol/L [facility] 3.5-5.2 3 sodium, serum 140 mmol/L [facility] 940-481 2794/05/0 3 urea nitrogen/creatinine ratio, serum 14 [facility] 9-23 3 creatinine, serum 0.63 mg/dL [facility] 0.57-1.00 3 urea nitrogen, blood 9 mg/dL [facility] 6-24 3 blood glucose, random 73 mg/dL [facility] 65-99 3 basophil count, absolute 0.1 x10E3/uL [facility] 0.0-0.2 3 Eosinophil Absolute Count 0.2 X10E3/UL [facility] 0.0-0.4 3 monocyte count, blood, automated 0.5 X10E3/UL [facility] 0.1-0.9 3 lymphocyte count, blood, automated 2.4 X10E3/UL [facility] 0.7-3.1 3 Absolute Neutrophils 3.9 X10E3/UL [facility] 1.4-7.0 3 basophils as percent of blood leukocytes 1 % [facility] Not Estab. 3 eosinophils as percent of blood leukocytes 3 % [facility] Not Estab. 3 monocytes as percent of blood leukocytes 8 % [facility] Not Estab. 3 lymphocytes as percent of blood leukocytes 34 % [facility] Not Estab. 3 neutrophils as percent of blood leukocytes 53 % [facility] Not Estab. 3 platelet count 273 X10E3/UL [facility] 684-992 3776/05/0 3 red blood cell distribution width 12.0 % [facility] 11.7-15.4 3 mean corpuscular hemoglobin concentration, RBC 33.2 G/DL [facility] 31.5-35.7 3 mean corpuscular hemoglobin, RBC 30.3 pg [facility] 26.6-33.0 3 mean corpuscular volume, RBC 91 fL [facility] 79-97 3 hematocrit, blood 42.5 % [facility] 34.0-46.6 3 hemoglobin, blood 14.1 g/dL [facility] 11.1-15.9 3 erythrocyte (RBC) count 4.65 X10E6/UL [facility] 3.77-5.28 3 leukocyte count, blood 7.2 X10E3/UL [facility] 3.4-10.8 HISTORY OF MEDICATION USE Medication Status Instructions Dates Provider Indications [facility] ments fludrocortisone 0.1 mg tablet active 1 tablet twice a day Calvin Robison MD midodrine 5 mg tablet completed TAKE 1 TABLET BY MOUTH THREE TIMES DAILY - Calvin Robison MD fludrocortisone 0.1 mg tablet completed TAKE ONE TABLET BY MOUTH TWICE DAILY NEEDED - [place] fluoxetine 20 mg capsule active 1 capsule once a day Calvin Robison MD Zoloft 100 mg tablet completed once a day - Rosita Gonzalez Se--19 29 mg iron- 1 mg tablet completed once a day - Calvin Robison MD SOCIAL HISTORY Date Observation Value Provider social history E&M Marital Statu s: 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 Calvin Robison MD smoking, year quit 2009 Saray Alexandra smoking, date started 1986 Cabrera Grijalva smoking history, tot al pack/day 1 1/2 Saray Alexandra cigarette use yes Saray Town[place] nd smoking status Former smoker Saray Hector ambrose social history E&M S moking History: Queta toure is a former smoker. Ashli Martinez social history reviewed E&M revi ewed - no changes required Ashli Martinez smoking, year quit 2009 Saray Alexandra smoking, date started 1986 Cabrera Grijalva smoking history, tot al pack/day 1 1/2 Saray Alexandra cigarette use yes Saray [address] [address] smoking status Former smoker Saray Hector ambrose smoking, year quit 2009 Rosita Carlos smoking, date started 1986 Cather ine Carlos smoking history, tot al pack/day 1 12 Rosita [place] cigarette use yes Rosita Carlos smoking status Former smoker Rosita Ot is social history E&M S moking History: Queta toure is a former smoker. Uche Grace MD social history reviewed E&M revi ewed - no changes required Uche Grace MD smoking, year quit 2009 Rosita [place] smoking, date started 1986 Cather ine [place] smoking history, tot al pack/day 1 1 Rosita Carlos cigarette use yes Rosita Carlos smoking status Former smoker Rosita Ot is social history E&M Smoking Histo ry: Queta toure is a former smoker. Seng Walters social history reviewed E&M revi ewed - no changes required Seng Walters smoking, year quit 2009 Karma Miguel héctor smoking, date started 1986 Lev wilson Guzman smoking history, tot al pack/day 1 02/21 Karma Hinds cigarette use yes Karma Hinds smoking status Former smoker Karma Hinds FAMILY HISTORY Family Member Condition Mother Family History of Hy pertension: Mother Family History of Hy perlipidemia: Mother Family History of Di abetes: INSURANCE PROVIDERS Payer name Policy type / Coverage type [place] [employer] green party ID [facility] [id number] ADVANCE DIRECTIVES Name Date DISCUSSED - NO DECISION MADE TREATMENT PLAN Date Name Performer [id number],Calvin Cheek MD [id number],BCalvin MD [id number],SCalvin MD [id number],S,D oing better with increased medication. Calvin Robison MD [id number],S, Calvin akbar MD [id number],B, Calvin akbar MD [id number],S, Calvin Josue akbar MD [id number],W,P atient felt much better on Florinef, but stopped it due to chest tightness and SOB. In discussing this, she says the chest tightness was just a sensation and was not severe. We have decided that we will try the Florinef again and if she has recurrance of chest tightness we will see if we can work through it. Calvin Robison MD [id number],C, C urrently exercising and restricting her caloric intake Ashli Martinez [id number],C,B P stable at 110/76. Feeling much better. Still some dizziness at the end of exercise, I advised her to be well hydrated, to drink Gatorade, and to do a cool down after exercise. Ashli Martinez [id number],C, N o further episodes of syncope Ashli Martinez [id number],C,F eeling much better. Still some dizziness at the end of exercise, I advised her to be well hydrated, to drink Gatorade, and to do a cool down after exercise. Echo, telesentry, and carotids were unremarkable. Ashli Michelle [id number],C, A bout 5 years ago, the pt had an evaluation for dizziness. At the time the workup was negative and sxs resolved. She had a hysterectomy a few weeks ago and now she is having epsiodes of dizziness, presyncope, and one episode of syncope. Will start florinef 0.1 mg BID. Will obtain telesentry, echo, carotid duplex, and rpm. Ashli Michelle [id number],C, A bout 5 years ago, the pt had an evaluation for dizziness. At the time the workup was negative and sxs resolved. She had a hysterectomy a few weeks ago and now she is having epsiodes of dizziness, presyncope, and one episode of syncope. Will start florinef 0.1 mg BID. Will obtain telesentry, echo, carotid duplex, and rpm. Ashli Martinez [id number],C,A bout 5 years ago, the pt had an evaluation for dizziness. At the time the workup was negative and sxs resolved. She had a hysterectomy a few weeks ago and now she is having epsiodes of dizziness, presyncope, and one episode of syncope. Will start florinef 0.1 mg BID. Will obtain telesentry, echo, carotid duplex, and rpm. Ashli Martinez Cardiology Calvin Robison MD Cardiology Calvin Robison MD Cardiology Calvin Robison MD Cardiology:Doing better with inc reased medication. Calvin Robison MD Cardiology Calvin Robison MD Cardiology Calvin Robison MD Cardiology Calvin Robison MD Cardiology:Patient f elt much better on Florinef, but stopped it due to chest tightness and SOB. In discussing this, she says the chest tightness was just a sensation and was not severe. We have decided that we will try the Florinef again and if she has recurrance of chest tightness we will see if we can work through it. Calvin Robison MD Cardiology: C urrently exercising and restricting her caloric intake Ashli Martinez Cardiology:BP stable at 110/76. Feeling much better. Still some dizziness at the end of exercise, I advised her to be well hydrated, to drink Gatorade, and to do a cool down after exercise. Ashli Martinez Cardiology: N o further episodes of syncope Ashli Martinez Cardiology:Feeling m uch better. Still some dizziness at the end of exercise, I advised her to be well hydrated, to drink Gatorade, and to do a cool down after exercise. Echo, telesentry, and carotids were unremarkable. Ashli Youngmylene Electrophysiology: A bout 5 years ago, the pt had an evaluation for dizziness. At the time the workup was negative and sxs resolved. She had a hysterectomy a few weeks ago and now she is having epsiodes of dizziness, presyncope, and one episode of syncope. Will start florinef 0.1 mg BID. Will obtain telesentry, echo, carotid duplex, and rpm. Ashli Youngmylene Electrophysiology: A bout 5 years ago, the pt had an evaluation for dizziness. At the time the workup was negative and sxs resolved. She had a hysterectomy a few weeks ago and now she is having epsiodes of dizziness, presyncope, and one episode of syncope. Will start florinef 0.1 mg BID. Will obtain telesentry, echo, carotid duplex, and rpm. Ashli Youngmylene Electrophysiology:Ab out 5 years ago, the pt had an evaluation for dizziness. At the time the workup was negative and sxs resolved. She had a hysterectomy a few weeks ago and now she is having epsiodes of dizziness, presyncope, and one episode of syncope. Will start florinef 0.1 mg BID. Will obtain telesentry, echo, carotid duplex, and rpm. Ashli Youngmylene Cardiology:This is a 34 years old female who presents with DIZZINESS EVALUATION. The patient also has palpitations, had presyncope. Not related to position or activity. Episodes last 5-10 min, started about 2-3 months ago after she had a baby. Seng Walters Date Name TSH, free T4, total T3 CBC (INCLUDES DIFF/P LT) BASIC METABOLIC PANE L W/EGFR Complete Echo Carotid Duplex Bilat eral RPM (remote patient monitoring) Tilt Table Test Mobile Cardiac Tele Carotid Duplex Bilat eral Complete Echo HISTORY OF PROCEDURES Procedure Date Procedure Name Provider Procedure Notes S tatus Spirometry Calvin Robison MD complete d FVC / MVV - 71880 Calvin Robison MD c ompleted FRC - 37387 Calvin Robison MD complet ed SpO2 w/o 6min walk/titration Calvin Robison MD completed SVC - 25115 Calvin Robison MD complet ed DLCO - 88131 Calvin Robison MD comple rosmery EKG Uche Grace MD completed SNOMED-CT: [id number] Smoking Cessation Counseling Uche Grace MD completed SNOMED-CT: 003463483 [id number] Current Medications Documented Uche Grace MD completed Event Monitor Uche Grace MD complet ed EKG Uche Grace MD completed SNOMED-CT: [id number] Current Medications Documented Uche Grace MD completed
[2024-03-22 10:20] LABS: Estimated Glomerular Filt Rate > 60
[2024-03-22 10:23] LABS: Glucose Point of Care 77 mg/dl (65-105)
[2024-03-22 10:26] LABS: Basophils Percent Auto 0.7 % (0.2-1.2); Eosinophils Absolute Auto 0.1 K/mm3 (0-0.3); Eosinophils Percent Auto 1.7 % (0-4.4); Hematocrit 42.5 % (37.0-47.0); Hemoglobin 14.5 g/dL (12.0-15.0); Immature Granulocyte Absolute 0.02 K/mm3 (0.00-0.031); Immature Granulocyte Percent A 0.3 % (0-0.5); Lymphocytes Absolute Auto 2.06 K/mm3 (0.9-3.2); Lymphocytes Percent Auto 34.5 % (18.3-44.2); Mean Corpuscular HGB Conc 34.1 g/dl (32-36); Mean Corpuscular Hemoglobin 30.9 pg (26-34); Mean Corpuscular Volume 90.4 fl (80-100); Mean Platelet Volume 10.7 fl (7.4-10.4); Monocytes Absolute Auto 0.5 K/mm3 (0.1-0.6); Monocytes Percent Auto 7.7 % (2.6-8.5); Neutrophils Absolute Auto 3.3 K/mm3 (1.3-6.7); Neutrophils Percent Auto 55.1 % (45.5-73.1); Platelet Count Result 227 k/mm3 (150-375); Red Cell Distribution Width 12.2 % (11.5-14.5)
[2024-03-22 10:38] LABS: INR 0.9; Prothrombin Time 12.9 Seconds (11.1-14.7)
[2024-03-22 10:39] LABS: Alanine Aminotransferase 18 U/L (6-35); Albumin Level 4.3 g/dL (3.5-5.1); Alkaline Phosphatase 61 U/L (38-126); Anion Gap 12 mmol/L (4-12); Aspartate Amino Transferase 24 U/L (14-36); Blood Urea Nitrogen 7 mg/dL (7-17); Calcium 8.9 mg/dL (8.4-10.2); Carbon Dioxide 23 mmol/L (22-30); Chloride 104 mmol/L (98-107); Estimated CRCL calculation 91 ml/min; Estimated Glomerular Filt Rate > 60; Glucose 95 mg/dL (65-110); Partial Thromboplastin Time 24.7 Seconds (22.3-36.8); Potassium 3.8 mmol/L (3.4-5.0); Sodium 139 mmol/L (137-145)
--- NOTE | 2024-03-22 10:43 | ED_ITS ---
HPI - Neuro Symptoms/Deficit General Chief Complaint: Suspected CVA Stated Complaint: stroke s/s onset 09 Time Seen by Provider: 03/22/24 10:19 Source: patient and family History of Present Illness HPI Narrative: 43 years old white female came to the ED by private car complaining of sudden onset of numbness left face, heaviness of left upper and left lower extremity more on the left upper extremity can not feel it. Started at 8:00 a.m. patient came to our emergency room 2 hours later PATIENT REPORTS SEVERE MIGRAINE HEADACHE WORSE THAN ANY TIME IN THE PAST STARTED LAST NIGHT, WENT TO SLEEP AT 7:00 P.M., WORKUP THIS MORNING WITH SLIGHT RESIDUAL MIGRAINE HEADACHE AT THE LEFT SIDE OF HER HEAD. RESOLVED WITHIN 1 HOUR. WITHIN NEUROLOGIC SYMPTOMS STARTED AT 8:00 A.M. PATIENT HAVE NO HEADACHE AT THAT TIME. IN THE ED PATIENT DENIED ANY HEADACHE. Related Data Home Medications ?Medication ?Instructions ?Recorded ?Confirmed ?Last Taken ?Type fluoxetine 10 mg capsule mg 01/18/23 04/18/23 Unknown History Allergies Allergy/AdvReac Type Severity Reaction Status Date / Time diphenhydramine Allergy Intermediate Hypotension Verified 03/22/24 10:44 latex Allergy Intermediate Rash Verified 03/22/24 10:44 Review of Systems 2 Review of Systems: All systems reviewed & are unremarkable except as noted in HPI and below PMFSH Past Medical History Medical History Screening mammogram, encounter for Breast density Screening mammogram, encounter for Missed ab 12/21/10 suction d&c Encounter for IUD insertion 08/14/18 Mirena insertion 05/28/20 removal done in OR Headache Dizziness HSV-2 infection Depression Anxiety Surgical History Surgical History History of robot-assisted laparoscopic hysterectomy (~06/02/21) RATLH failed ablation History of gynecologic surgery 05/28/20 lscope/hscope w/removal of IUD History of bilateral salpingectomy 07/09/20 History of endometrial ablation 07/09/20 hscope d&c/endometrial ablation/lscope salpingectomy H/O LEEP 06/14/06 HGSIL, chronic endocervicitis History of colposcopy with cervical biopsy 02/21/2008 History of tonsillectomy H/O left wrist surgery History of foot surgery rt foot Family History Family History Mother Diabetes mellitus Hypertension Grandparent Breast cancer maternal grandmother Father Diabetes mellitus Sibling Diabetes mellitus brother Acute myocardial infarction brother Cerebrovascular accident brother Social History Social History Smoking packs per day: 2 Smoking cigarettes per day: 40.0 Years smoked: 10 Smoking pack-years: 20.00 Smoking status: Former smoker Tobacco type: cigarettes Second hand tobacco smoke exposure: No Smoking end date: 02/20/06 Alcohol intake: current Alcohol use details: 1- 2 every other month Substance use: never Substance use type: does not use Do You Feel Safe in your Home?: Yes Lack of Transportation: No Lack of Food: Never True Current Housing: I Have Housing Concerned About Future Housing: No Difficulty Paying Gas/Electric Bills: No Difficulty Paying for Meds: No Currently Unemployed: No Education: Bachelor's Degree Difficulty w/ Childcare or Family Care: No Living arrangements: other Additional living arrangements comments: Occupation/Education: occupation 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 Gender identity (if verbalized by the patient): Female Sexual Orientation (if Verbalized by the Patient): Straight or Heterosexual Spiritual care concerns: No Exam 2 Narrative: GENERAL APPEARANCE: WELL-DEVELOPED, WELL-NOURISHED, CRYING, AT THE BEDSIDE SKIN: NORMAL COLOR HEAD: NORMOCEPHALIC, NONTRAUMATIC EYES: CLEAR CONJUNCTIVA ENT: OROPHARYNX NORMAL, EARS NORMAL, NOSE NORMAL, LEFT FACIAL DROOPING NECK: SUPPLE, NONTENDER CHEST AND RESPIRATORY: AIRWAY PATENT, NO RESPIRATORY DISTRESS, NO ACCESSORY MUSCLE USE HEART: REGULAR RATE/RHYTHM ABDOMEN: SOFT, NONTENDER, NO ORGANOMEGALY, QUIET BOWEL SOUNDS VASCULAR: NORMAL PERIPHERAL PULSES, NORMAL CAPILLARY REFILL. MUSCULOSKELETAL: NORMAL RANGE OF MOTION, NONTENDER BACK NEUROLOGIC: ALERT AND ORIENTED ?3, LEFT FACIAL DROOPING, SEVERE WEAKNESS LEFT UPPER AND LEFT LOWER EXTREMITY, SLURRED SPEECH Course Consultations Consultation #1: Dr. larsen, neurologist on-call accepted patient transfer Date: 03/22/24 Time: 11:01 Consultation #2: Dr. Walls [facility] ED Date: 03/22/24 Time: 11:02 Vital Signs Vital signs: Vital Signs Temperature 37.1 C 03/22/24 10:22 Pulse Rate 83 03/22/24 10:22 Respiratory Rate 12 03/22/24 10:22 Blood Pressure 130/83 03/22/24 10:22 Pulse Oximetry 100 03/22/24 10:22 Oxygen Delivery Room Air 03/22/24 10:22 Temperature 37.1 C 03/22/24 10:22 Pulse Rate 84 03/22/24 11:15 Respiratory Rate 20 03/22/24 11:15 Blood Pressure 111/70 03/22/24 11:15 Pulse Oximetry 100 03/22/24 11:15 Oxygen Delivery Room Air 03/22/24 10:32 MDM - Neuro Symptoms/Deficit MDM Narrative Medical decision making narrative: Patient came to the ED with stroke-like symptoms Vital signs are stable Physical examination showing left facial drooping, severe weakness left upper and left lower extremities, patient cries, severely stressed. Differential diagnosis complex migraine headache, depression, acute CVA, intracranial tumor. Blood workup today includes CBC, CMP, showed no significant abnormality EKG on arrival showed normal sinus rhythm Chest x-ray showed no acute abnormality CT head without contrast showed no acute abnormalities CTA head and neck showed no acute abnormalities. Patient's symptoms started within 3 hours prior to arrival to the emergency room, NIH stroke scale is 9, [place] started, DR HAWTHORNE, THE NEUROLOGIST ON-CALL AT [facility] AGREED WITH THE PLAN AND ACCEPTED PATIENT TRANSFER DR. WALLS THE ED PHYSICIAN AT [facility] ACCEPTED PATIENT TRANSFER AT THE BEDSIDE, Differential Diagnosis Differential diagnosis: Likely other ( ABOVE) Medical Records Attestation: I reviewed the patient's medical records. Lab Data Attestation: I reviewed the patient's lab results. 03/22/24 10:15 03/22/24 10:17 Labs: Lab Results 03/22/24 03/22/24 03/22/24 Range/Units 10:06 10:15 10:17 WBC 6.0 (4.5-10.0) K/mm3 RBC 4.70 (4.2-5.4) M/mm3 Hgb 14.5 (12.0-15.0) g/dL Hct 42.5 (37.0-47.0) % MCV 90.4 (80-100) fl MCH 30.9 (26-34) pg MCHC 34.1 (32-36) g/dl RDW 12.2 (11.5-14.5) % Plt Count 227 (150-375) k/mm3 MPV 10.7 H (7.4-10.4) fl Immature Gran % (Auto) 0.3 (0-0.5) % Neut % (Auto) 55.1 (45.5-73.1) % Lymph % (Auto) 34.5 (18.3-44.2) % [place] % (Auto) 7.7 (2.6-8.5) % Eos % (Auto) 1.7 (0-4.4) % Baso % (Auto) 0.7 (0.2-1.2) % Lymph # (Auto) 2.06 (0.9-3.2) K/mm3 [place] # (Auto) 0.5 (0.1-0.6) K/mm3 Eos # (Auto) 0.1 (0-0.3) K/mm3 Baso # (Auto) 0.0 (0.0-0.1) K/mm3 Abs Immat Gran (auto) 0.02 (0.00-0.031) K/mm3 Absolute Neuts (auto) 3.3 (1.3-6.7) K/mm3 Absolute Nucleated RBC 0.000 (0.0-0.012) K/mm3 Nucleated RBC % 0.0 (0.0-0.2) % PT 12.9 (11.1-14.7) Seconds INR 0.9 APTT 24.7 (22.3-36.8) Seconds Sodium 139 (137-145) mmol/L Potassium 3.8 (3.4-5.0) mmol/L Chloride 104 (98-107) mmol/L Carbon Dioxide 23 (22-30) mmol/L Anion Gap 12 (4-12) mmol/L BUN 7 (7-17) mg/dL Creatinine 0.64 L 0.80 (0.7-1.0) mg/dL Estim Creat Clear Calc 91 Not Reportable ml/min Estimated GFR > 60 > 60 (59 - ) Glucose 95 (65-110) mg/dL POC Capillary Glucose 77 (65-105) mg/dl Calcium 8.9 (8.4-10.2) mg/dL Total Bilirubin 1.0 (0.2-1.3) mg/dL AST 24 (14-36) U/L ALT 18 (6-35) U/L Alkaline Phosphatase 61 (38-126) U/L Troponin I < 0.012 (0.000-0.034) ng/mL Total Protein 7.0 (6.3-8.2) g/dL Albumin 4.3 (3.5-5.1) g/dL Imaging Data Radiologist's impression: Impressions Head CT 03/22/24 10:15 Impression: No acute intracranial hemorrhage or suspicious mass effect. These findings were discussed with Dr. Thompson at 10:14 AM on 03/22/2024 Chest X-Ray 03/22/24 10:34 IMPRESSION: 1: NO ACUTE CARDIOPULMONARY DISEASE. Head/Neck CTA 03/22/24 10:43 IMPRESSION: 1. 0% stenosis of the right and left carotid bulbs relative to normal distal artery lumen diameter (NASCET criteria). 2. No cerebral hemodynamically significant stenosis, thrombosis or aneurysm. 3. Normal anatomic variant of the [place] with supply to the left anterior cerebral artery supplied via right internal carotid artery and a patent right anterior to indicating artery and the left posterior circulation supplied from the left internal carotid artery and a patent left posterior commuting artery. ECG Data EKG #1: Attestation: I personally reviewed and interpreted this ECG as follows: ECG completion date: 03/22/24 Interpretation: Normal sinus rhythm at 79 beats per minute, left atrial enlargement, no previous EKG available for comparison Critical Care Time Critical Care Time Critical Care Time: Yes Total Critical Care Time: 30 Discharge Plan Discharge Clinical Impression: Acute cerebrovascular accident (CVA) Patient Disposition: Acute Care Hospital Condition: Guarded Prognosis Additional Instructions: TRANSFERRED TO [facility] Patient Language: Russian Prescriptions: No Action fluoxetine 10 mg capsule valacyclovir [Valtrex] 500 mg tablet 500 mg PO Q12H 7 Days Qty: 14 6RF Follow-up/Referrals: Doris,DAVID Loomis [Primary Care Provider] - Quality Stroke Scale Stroke Scale 1: 1a Level of consciousness: alert-0 1b Level of consciousness questions: answers both correctly-0 1c Level of consciousness commands: obeys both correctly-0 2 Best gaze: normal-0 3 Visual: no visual loss-0 4 Facial palsy: minor paralysis-1 5a Motor: left arm: no effort/gravity-3 5b Motor: right arm: no drift-0 6a Motor: left leg: some effort/gravity-2 6b Motor: right leg: no drift-0 7 Limb ataxia: present in one limb-1 8 Sensory: pinprick less sharp-1 9 Best language: no aphasia-0 10 Dysarthria: slurs some words-1 11 Extinction and inattention: no abnormality-0 Level:: 9
[2024-03-22] MEDS: TENECTEPLASE 50 MG/10 ML VIAL 18.7 MG IV PUSH (10:50)
--- OUTSIDE RECORDS SUMMARY | 2024-03-22 10:52 | XMS_ITS | Patient Health Summary ---
Author Organization [facility] [employer] Address [address] [place] [address] Care Team Providers Care Veterinary Surgery Technologist Name Role Phone Unavailable Primary Care Provider Unavailabl e Note from [facility],non-owned Affiliates and Associated Physician Practices is amultiple site organization consisting of ambulatory clinics and hospital sitesin [place], [place], [place] and [place]. This disclosure is being madepursuant to the Care Everywhere program and may not contain all information available regarding this patient. Last updated 17.[facility] Allergies * Avocado(Anaphylaxis) -High Criticality * Latex(Anaphylaxis) [...] Comments Blood Pressure 110/78 01/15/2016 6:51 PM CORRESPONDENCE ANALYST Pulse 76 01/15/2016 6:51 PM CORRESPONDENCE ANALYST Temperature 37.1 ??C (98.7 ??F) 01/15/2016 6:51 PM CS T Respiratory Rate 20 01/15/2016 6:51 PM CORRESPONDENCE ANALYST Oxygen Saturation 98% 01/15/2016 6:51 PM CORRESPONDENCE ANALYST Inhaled Oxygen Concentration - - Weight 70.3 kg (155 lb) 01/30/2015 9:57 AM CORRESPONDENCE ANALYST Height 167.6 cm (5' 6 ) 01/30/2015 9:57 AM CORRESPONDENCE ANALYST Body Mass Index 25.02 01/30/2015 9:57 AM CORRESPONDENCE ANALYST Procedures * URINALYSIS AUTO - POINT OF [...] pH units Blood UA ++ Negative Specific [place] UA POCT 1.015 1.002 - 1.030 Ketone UA negative Negative Bilirubin UA POCT negativve Negative Glucose UA negative Negative Expiration Date [id number] Lot # [id number] QC Verified Yes Yes URINE / Unknown 01/15/2016 Juancho Lala RADIOTELEPHONE OPERATOR-ANALOG IC DESIGN ARCHITECT LAB - POINT OF CARE ORDERABLES * CARDIAC ECHOCARDIOGRAM COMPLETE ORDER (02/03/2015 2:34 PM CORRESPONDENCE ANALYST) Narrative 02/03/2015 2:34 PM CORRESPONDENCE ANALYST Ordered by an unspecified provider. Scanned Document ECHO ORDERABLES * CARDIAC RHYTHM STRIP ORDER (02/03/2015 2:34 PM CORRESPONDENCE ANALYST) Narrative 02/03/2015 2:34 PM CORRESPONDENCE ANALYST Ordered by an unspecified provider. Scanned Document CARDIAC SERVICES ORD ERABLES * HCG URINE QUALITATIVE - POINT OF CARE (IP) (01/30/2015 10:12 AM CORRESPONDENCE ANALYST) HCG Qual Urine Negative Negative [facility] POCT TESTING QC Verified Yes Yes [facility] POC T TESTING Urine specimen (specimen) URINE / Unknown 01/30/2015 10:12 AM CORRESPONDENCE ANALYST Uche Grace MD LAB - POINT OF CARE ORDERABLES [facility] POCT TESTING [id number] [phone] * PATHOLOGY TISSUE FOR DERMATOLOGY (01/01/2013 12:00 AM CORRESPONDENCE ANALYST) Result CASE: [id number] PATIENT: CAMRYN FRANKLIN PATHOLOGIC DIAGNOSIS: A. ??Left [...] by Martha Prasad M.D., PhD. 01/04/2013 9:24:29AM [facility] DERMAT[facility] LAB Comment: Performed at: Dermatopathology Laboratory [facility] - Department of Dermatology [address] [place] [address], Room [address] [place] [address] Phone number: [phone] Toll Free: [phone] FAX: [phone] 01/01/2013 01/02/2013 Magnus Hernandez LAB - PATHOLOGY/CYTO LOGY ORDERABLES [facility] D[facility] LAB [address] [place] [address]. [address] [place] [address], [facility] [phone]
--- OUTSIDE RECORDS SUMMARY | 2024-03-22 10:52 | XMS_ITS | Referral Summary ---
Author Organization [facility] [employer] Address [address] [place] [address] Care Team Providers Care Bolt Machine Operator Name Role Phone Unavailable Primary Care Provider Unavailabl e Source Comments [facility],non-owned Affiliates and Associated Physician Practices is amultiple site organization consisting of ambulatory clinics and hospital sitesin [place], [place], [place] and [place]. This disclosure is being madepursuant to the Care Everywhere program and may not contain all information available regarding this patient. Last updated 17.[facility] Allergies Active Allergy Reactions Criticality Noted Date [...] Comments Blood Pressure 110/78 01/15/2016 6:51 PM MEASUREMENT AND SENSING TECHNICIAN Pulse 76 01/15/2016 6:51 PM MEASUREMENT AND SENSING TECHNICIAN Temperature 37.1 ??C (98.7 ??F) 01/15/2016 6:51 PM CS T Respiratory Rate 20 01/15/2016 6:51 PM MEASUREMENT AND SENSING TECHNICIAN Oxygen Saturation 98% 01/15/2016 6:51 PM MEASUREMENT AND SENSING TECHNICIAN Inhaled Oxygen Concentration - - Weight 70.3 kg (155 lb) 01/30/2015 9:57 AM MEASUREMENT AND SENSING TECHNICIAN Height 167.6 cm (5' 6 ) 01/30/2015 9:57 AM MEASUREMENT AND SENSING TECHNICIAN Body Mass Index 25.02 01/30/2015 9:57 AM MEASUREMENT AND SENSING TECHNICIAN Plan of Treatment [place] [address] Christi Franklin Personal/Famil y Self [address] [place] [id number]
--- OUTSIDE RECORDS SUMMARY | 2024-03-22 10:52 | XMS_ITS | Referral Summary ---
Author Organization [facility] Address [address] [place] [address] Care Team Providers Care Communications Specialist Name Role Phone Ebonie George Primary Care [...] on file Legal Sex Female 10:07 AM INSPECTOR [employer] Gender Identity Not on file Sexual Orientation [...] ANTHEM PREFERRED BLUE ACCESS OOS Care Teams Communications Specialist Relationship Specialty Start Date End Date Ebonie George PA PCP - General Physician Genetic Supervisor 10/21/19
--- OUTSIDE RECORDS SUMMARY | 2024-03-22 10:52 | XMS_ITS | Clinical Summary ---
Author Organization [facility] [employer] Address [address] [place] [address] Care Team Providers Care Rail Track Layer Name Role Phone Unavailable Primary Care Provider Unavailabl e Source Comments [facility],non-owned Affiliates and Associated Physician Practices is amultiple site organization consisting of ambulatory clinics and hospital sitesin [place], [place], [place] and [place]. This disclosure is being madepursuant to the Care Everywhere program and may not contain all information available regarding this patient. Last updated 17.[facility] Allergies Active Allergy Reactions Criticality Noted Date [...] Comments Blood Pressure 110/78 01/15/2016 6:51 PM STATISTICAL ENGINEER Pulse 76 01/15/2016 6:51 PM STATISTICAL ENGINEER Temperature 37.1 ??C (98.7 ??F) 01/15/2016 6:51 PM CS T Respiratory Rate 20 01/15/2016 6:51 PM STATISTICAL ENGINEER Oxygen Saturation 98% 01/15/2016 6:51 PM STATISTICAL ENGINEER Inhaled Oxygen Concentration - - Weight 70.3 kg (155 lb) 01/30/2015 9:57 AM STATISTICAL ENGINEER Height 167.6 cm (5' 6 ) 01/30/2015 9:57 AM STATISTICAL ENGINEER Body Mass Index 25.02 01/30/2015 9:57 AM STATISTICAL ENGINEER Plan of Treatment Health Maintenance Due Date [...] age to complete this topic Dr [place] [address] Christi Franklin Personal/Famil y Self [address] [place] [address]
--- OUTSIDE RECORDS SUMMARY | 2024-03-22 10:52 | XMS_ITS | Clinical Summary ---
Author Organization [facility] Address [address] [place] [address] Care Team Providers Care B2B Managed Service Sales Exec Name Role Phone Ebonie George Primary Care [...] on file Legal Sex Female 10:07 AM SKIVER BOX TOE Gender Identity Not on file Sexual Orientation [...] ANTHEM PREFERRED BLUE ACCESS OOS Care Teams B2B Managed Service Sales Exec Relationship Specialty Start Date End Date Ebonie George PA PCP - General Physician Key Bed Installer 10/21/19
--- OUTSIDE RECORDS SUMMARY | 2024-03-22 10:52 | XMS_ITS | CONTINUITY OF CARE DOCUMENT ---
Author Name chapinmichael chapinmichael Address Unknown Organization [facility] Address [address] [place] [address] Phone [phone] Care Team Providers Care Mink Farmer Name Role Phone Calvin Robison MD Unavailable [place] Unavailable [place] Unavailable PROBLEMS Condition Status Date [...] In-person encounter Office Visit Calvin Robison MD [facility] - In-person encounter Office Visit Calvin Robison MD [facility] - In-person encounter Office Visit Uche Grace MD [facility] Overweight - In-person encounter Office Visit Uche Grace MD [facility] - In-person encounter Office Visit Uche Grace MD [facility] Syncope - In-person encounter Office Visit Uche Grace MD [facility] Chest pain-type to be determinedFamily History [...] Dagmar Bustamante blood pressure, diastolic 72 mm[Hg] Ma luba Stigler blood pressure, systolic 98 mm[Hg] [facility] helle Stigler oxygen saturation, oximetry 99 % Saray Alexandra pulse rate 71 /min Saray alex respiratory rate E&M 16 /min Carmen Elizabethand blood pressure, cuff size large Ma luba Stigler weight E&M 161 [lb_av] Saray Hollan d height E&M 66 [in_i] Saray Elizabethan d Body Mass Index (Ratio) 27.60 kg/m2 Missy Martinez blood pressure, cuff size large Ashly verduzco Stigler blood pressure, diastolic 76 mm[Hg] Mi luba [...] blood pressure, diastolic 68 mm[Hg] Ca therine Bronx blood pressure, systolic 101 mm[Hg] Cat herine [place] pulse rate 66 /min Rosita Carlos oxygen saturation, oximetry 99 % Rosita Carlos respiratory rate E&M 16 /min Catheri ne [place] weight E&M 173 [lb_av] Rosita [place] blood pressure, cuff size regular Ca therine Carlos height E&M 66 [in_i] Rosita Carlos Body Mass Index (Ratio) 28.24 kg/m2 Missy Youngmylene blood pressure, diastolic 72 mm[Hg] Li nkLogic blood pressure, systolic 108 mm[Hg] Corrie kLogic blood pressure, diastolic 72 mm[Hg] Ca therine [place] blood pressure, systolic 108 mm[Hg] Cat herine [place] oxygen saturation, oximetry 99 % Rosita Carlos respiratory rate E&M 16 /min Catheri ne [place] pulse rate 71 /min Rosita Carlos weight E&M 175 [lb_av] Rosita Carlos blood pressure, cuff size regular Ca therine [place] height E&M 66 [in_i] Rosita Carlos blood pressure, diastolic, right arm 68 m m[Hg] Karma Guzman blood pressure, systolic, right arm 99 mm [Hg] Karma Guzman blood pressure, diastolic 66 mm[Hg] Ks sharona Hinds blood pressure, systolic 101 mm[Hg] [...] 3.5-5.2 3 sodium, serum 140 mmol/L [employer] [id number]/05/0 3 urea nitrogen/creatinine ratio, serum 14 [employer] [...] Estab. 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 Uche Grace MD social history reviewed E&M revi ewed - no changes required Uche Grace MD smoking, year quit 2009 Rosita Bronx smoking, date started 1986 Cather ine [place] smoking history, tot al pack/day 1 1 [...] Payer name Policy type / Coverage type [place] red green party ID [facility] [id number] ADVANCE DIRECTIVES Name Date DISCUSSED - NO DECISION MADE TREATMENT PLAN Date Name Performer [id number],Calvin Cheek MD [id number],BCalvin MD [id number],SCalvin MD [id number],S,D oing better with increased medication. Calvin Robison MD [id number],S, Calvin akbar MD [id number],B, Calvin akbar MD [id number],S, Calvin Josue akbar MD [id number],W,P atient felt much better on Florinef, but stopped it due to chest tightness and SOB. In discussing this, she says the chest tightness was just a sensation and was not severe. We have decided that we will try the Florinef again and if she has recurrance of chest tightness we will see if we can work through it. Calvin Robison MD [id number],C, C urrently exercising and restricting her caloric intake Ashli Martinez [id number],C,B P stable at 110/76. Feeling much better. Still some dizziness at the end of exercise, I advised her to be well hydrated, to drink Gatorade, and to do a cool down after exercise. Ashli Martinez [id number],C, N o further episodes of syncope Ashli Martinez [id number],C,F eeling much better. Still some dizziness at the end of exercise, I advised her to be well hydrated, to drink Gatorade, and to do a cool down after exercise. Echo, telesentry, and carotids were unremarkable. Ashli Michelle [id number],C, A bout 5 years ago, the pt had an evaluation for dizziness. At the time the workup was negative and sxs resolved. She had a hysterectomy a few weeks ago and now she is having epsiodes of dizziness, presyncope, and one episode of syncope. Will start florinef 0.1 mg BID. Will obtain telesentry, echo, carotid duplex, and rpm. Ashli Michelle [id number],C, A bout 5 years ago, the pt had an evaluation for dizziness. At the time the workup was negative and sxs resolved. She had a hysterectomy a few weeks ago and now she is having epsiodes of dizziness, presyncope, and one episode of syncope. Will start florinef 0.1 mg BID. Will obtain telesentry, echo, carotid duplex, and rpm. Ashli Martinez [id number],C,A bout 5 years ago, the pt had [...] Robison MD Cardiology Calvin Robison MD Cardiology Cavlin Robison MD Cardiology Calvin Robison MD Cardiology:Patient [...] MD complete d FVC / MVV - 76689 Calvin Robison MD c ompleted FRC - 33389 Calvin Robison MD complet ed SpO2 w/o 6min walk/titration Calvin Robison MD completed SVC - 23823 Calvin Robison MD complet ed DLCO - 09681 Calvin Robison MD comple rosmery EKG Uche Grace MD completed SNOMED-CT: [id number] Smoking Cessation Counseling Uche Grace MD completed SNOMED-CT: 795765047 190022 Current Medications Documented Uche Grace MD completed Event Monitor Uche Grace MD complet ed EKG Uche Grace MD completed SNOMED-CT: [id number] 912320 Current Medications Documented Uche Grace MD completed
[2024-03-22 10:53] LABS: Troponin I < 0.012 ng/mL (0.000-0.034)
== END 2024-03-22 11:27 | disposition short-term general hospital (02) ==
PROVIDERS: Emergency Provider Emergency Medicine; PCP Physician Assistant
DX: I63.9 Cerebral infarction, unspecified (principal); R29.709 NIHSS score 9; F41.9 Anxiety disorder, unspecified; F32.A Depression, unspecified; Z87.891 Personal history of nicotine dependence; Z90.710 Acquired absence of both cervix and uterus; Z90.79 Acquired absence of other genital organ(s)
CPT/HCPCS: 36415; 70450; 70496; 70498; 71045; 80053; 82948; 84484; 85025; 85610; 85730; 93005; 96374; 99285; J3101; Q9967

== ENCOUNTER 2024-06-13 14:45 | Outpatient (RCR) | payer BC, SELFPAY ==
--- NOTE | 2024-04-11 09:37 | OPREHPOC ---
Outpatient Therapy Plan of Care This is a Multidisciplinary Plan of Care that may contain components documented by all disciplines (PT, OT, and ST.) PT Problem 1 PT Problem #1 Knowledge Deficit PT Goal 1 Goal / Goal Update [place] with HEP Target Visit 4 PT Goal 2 Goal / Goal Update Report neck and hip pain no greater than 2/10 for 2 consecutive weeks Target Visit 8 PT Problem 2 PT Problem #2 Impaired Strength PT Goal 1 Goal / Goal Update 1. Improve nick hip flexion strength to 4+/5 to improve foot clearance with gait 2. Improve nick hip abduction strength to 4/5 to improve lateral stability with gait mechanics and transfer 3. Improve nick knee strength to 5/5 to improve stability with transfer and gait Target Visit 10 PT Problem 3 PT Problem #3 Impaired Functional Mobility PT Goal 1 Goal / Goal Update 1. Improve Tinetti score by 6 points to reduce fall risk and improve functional mobility 2. Improve ability to maintain balance on uneven surface for 30 seconds without loss of balance 3. Improve 2 minute walk test to 300' Target Visit 10
--- NOTE | 2024-04-11 09:38 | PTOPEVAL1 ---
Assessment and note entered by Jarek Winston, PT Evaluation Information Assessment Status Evaluation Diagnosis Hemiplegia Migranosis ICD-10 Condition Codes (PT) Cervicalgia M54.2,Weakness R53.1 Onset 03/22/24 Subjective Information Reports that she went to bed with the worst migraine she has ever had. She reports that she woke up with the worst pain she has ever had in her eyes. She began having numbness in her mouth and in her left arm and left leg. She went to ER and was [facility] follow [facility]. Reports that since road to recover her leg does start the get better but she has a weird tingling feeling in the top of her thigh. When she steps she gets a numb feeling on the bottom of her foot and she is not entirely steady. The arm feels heavy but she is able to use it. Feels she does not have fine motor skills back yet. She is left handed. She continues to have headaches and has had one every day since being out of the hospital. Is no sleeping well. She reports baseline low blood pressure. Reported Pain Level Pain Score 3: Self Report Assessment PT Clinical Summary Patient presents with L sided weakness, deconditioning and gait disturbance at this time all consistent with diagnosis. No indication of tone loss and patient has notable activation of all myotome muscles in nick LE. She does however show weakness along most major muscle groups as indicated in objective measures. Patient will benefit form skilled therapy to address weakness and gait deficits. Plan of Care Interventions Gait Training,Manual Therapy,Neuro Re-education, Therapeutic Activities,Therapeutic Exercise PT Services Indicated Yes Treatment Frequency and 2x/week for 10 visits Duration These treatments will address the objective and functional deficits as defined above. The patient will be advanced safely and appropriately in order for the patient to progress towards his/her prior level of function. Additional exercises will be introduced and as well as a comprehensive home exercise program upon discharge, if needed, ?to ensure carryover of functional gains achieved in the clinic. This treatment plan has been reviewed and agreement upon by the patient.
--- NOTE | 2024-04-16 11:27 | OTOPEVAL1 ---
Assessment and note entered by Jon Kaiser, DANIELLE/Genoveva, CHT OT Evaluation Information Assessment Status Evaluation Diagnosis Hemiplegic status migrainosus, CVA Subjective Information - Patient reports onset of left sided weakness after a severe headache 03/22/24. She presented to the ED and was transferred to [facility] hospital. She discharged home from acute care, did not go to inpatient rehab. 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 She lives at home with her and 3 daughters. She reports difficulties with using her left hand to conditioning yard supervisor a pen, open a jar , and brushing her hair. She reports she is back to dressing herself and is able to do buttons and zippers. Patient reports she has progressed to standing in the shower, sometimes needs her husbands help to left her left leg over the tub. Her is doing all of the cooking, cleaning, and laundry. She is eager to get back to cooking and cleaning. She reports she tried to clean the bathroom the other day and reports feeling limited by her standing tolerance and lack of coordination in the left arm. Laundry is in the basement and she doesn't trust herself to do the laundry. Assessment OT Clinical Summary Patient referred to OT with left sided weakness and incoordination, which has been impacting her ability to complete ADLs and work tasks with her dominant UE. Today she was issued a hand strengthening HEP and fine motor HEP. Continued follow up indicated for a compressive strengthening HEP, functional therapeutic exercises/activities, and functional fine motor activities to facilitate improved functional use of her left, dominant UE. Plan of Care Interventions Therapeutic Exercise,Neuro Re-education, Therapeutic Activities,Hot Pack/Cold Pack OT Services Indicated Yes Treatment Frequency and 2x/week for 10 visits Duration These treatments will address the objective and functional deficits as defined above. The patient will be advanced safely and appropriately in order for the patient to progress towards his/her prior level of function. Additional exercises will be introduced and as well as a comprehensive home exercise program upon discharge, if needed, ?to ensure carryover of functional gains achieved in the clinic. This treatment plan has been reviewed and agreement upon by the patient.
--- NOTE | 2024-04-16 11:27 | OPREHPOC ---
Outpatient Therapy Plan of Care This is a Multidisciplinary Plan of Care that may contain components documented by all disciplines (PT, OT, and ST.) PT Problem 1 PT Problem #1 Knowledge Deficit PT Goal 1 Goal / Goal Update [place] with HEP Target Visit 4 PT Goal 2 Goal / Goal Update Report neck and hip pain no greater than 2/10 for 2 consecutive weeks Target Visit 8 PT Problem 2 PT Problem #2 Impaired Strength PT Goal 1 Goal / Goal Update 1. Improve nick hip flexion strength to 4+/5 to improve foot clearence with gait 2. Improve nick hip abduction strength to 4/5 to improve lateral stability with gait mechanics and transfer 3. Improve nick knee strength to 5/5 to improve stability with transfer and gait Target Visit 10 PT Problem 3 PT Problem #3 Impaired Functional Mobility PT Goal 1 Goal / Goal Update 1. Improve Tinetti score by 6 points to reduce fall risk and improve functional mobility 2. Improve ability to maintain balance on uneven surface for 30 seconds without loss of balance 3. Improve 2 minute walk test to 300' Target Visit 10 OT Problem 1 OT Problem #1 Knowledge Deficit OT Goal 1 Goal / Goal Update Patient to be independent with instructed materials. Target Visit 10 OT Problem 2 OT Problem #2 Impaired Coordination OT Goal 1 Goal / Goal Update Patient to improve functional fine motor coordination for writing and typing tasks as measured by improving 9-hole peg test to 24 seconds or less with the left hand. Target Visit 10 OT Problem 3 OT Problem #3 Impaired Strength OT Goal 1 Goal / Goal Update Patient to improve left UE strength for ADLs to facilitate return to cleaning, carrying a laundry basket, and cooking as measured by improving left UE strength to: - left gross shoulder strength to 4+/5 - left gross elbow strength 4+/5 - left manager pipeline strength to 50 lbs. Target Visit 10
--- NOTE | 2024-04-17 13:58 | BUSTOPEVAL1 ---
Assessment and note entered by Katelynn Roman, FAMILY HELPER Evaluation Information Assessment Status Evaluation Diagnosis G43.401 Hemiplegic status migrainosus Other ICD-10 Condition Codes ( F98.[address]) Subjective Information Patient had a severe onset of a migraine which resulted in left side weakness and symptoms of a stroke after the onset. Patient was then sent by helicopter from [facility] to [facility] for administration of TPA for possible stroke. While there patient underwent extensive testing through MRI, CAT scans, and neurological testing. Recommendation was given for intensive inpatient therapy but the patient decided to pursue outpatient due to being gone from her family and the needs at home. Patient reported that she was not seen for skilled ST while in the hospital. Patient currently is being seen for OT and PT due to ongoing left side arm, hand and leg weakness. While at [facility] patient did not have any speech therapy treatment but experienced difficulty with word retrieval and often getting stuck when she attempts to say certain words. She reported that she felt that the difficulties were less frequent than they were but she continues to experience difficulty and can become very frustrated. 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 She notices an increase in verbal expression difficulties as the day progresses and she becomes more fatigued. Her reported that he doesn't notice a huge change in her communication but the patient reported that her sister notices the difficulties the patient is having. Reported Pain Level Pain Score 4,3,4: Self Report Pain Score 4: Self Report Pain Score 0: Self Report Pain Score 3: Self Report Assessment ST Clinical Summary Patient was referred for a skilled ST evaluation due to a recent hemiplegic status migrainosus which resulted in left side weakness and symptoms of a stroke after the onset. Patient was sent by helicopter from [facility] to [facility] on for tPA. Patient was admitted for 5 days and went through extensive testing. It was recommended for intensive inpatient therapy but patient decided on outpatient therapy to better fit their life and needs at home. Since 03-22-24 the patient reported that her communication skills have gotten better but she continues to struggle with her word finding skills with frequent searching for words and periods of getting stuck in conversation. She reported that she does not have difficulty when reading items out loud. Her sister reported that she notices the changes in the patient's speech. 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 The patient indicated that she is worried about her verbal expression skills when attempting to communicate with others within the workplace. Throughout the evaluation the patient presented with mild word finding difficulties/periods of getting stuck in her speech. A portion of the [facility] Adult Language Evaluation was given during the evaluation with the noted difficulties below: Automatic speech: When attempting to name the months of the year the patient presented with a sudden stop (block) and appeared stuck when attempting to say August. The patient presented with facial tension within the cheeks and lips along with neck tension when attempting to say the target word. Open ended cued speech: Patient patient presented with difficulty attempting to complete the phrase The doctor will be ___ with facial tension and another episode of stuttering (a block). The patient eventually got the target word out. Patient presented with 20% of targets stuttered within open ended cued speech task. Stating object function: Patient presented with difficulty stating what you do with a watch with another episode of stuttering (a block) indicating 20% of targets stuttered within object function task. Patient eventually got the target word out with increased time. Continued facial and neck tension noted when attempting to say the target word. Divergent namin items for animals and 15+ for states. Mild deficit in divergent naming skills. Patient reported that prior to this medical event the patient would have been able to name many more animals. Connected speech: cookie jar picture Patient generated 4 complex sentences to describe the picture with no evident stuttering during that specific task. Patient initially was thinking that she was experiences anomia but once evaluation was completed the patient is presenting with mild fluency disorder. The patient described that within these pauses where no words are coming out she knows what the word is but experiences a stuck moment which is perceived as a block. Recommendation for skilled ST treatment to target higher level word finding tasks and verbal expression tasks to target fluency skills and ways to compensate when patient experiences a block. 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 Recommendation for skilled ST treatment 1x/ week for 10 visits to target G43.401 Hemiplegic status migrainosus resulting in F98.5 Fluency disorder. Plan of Care Interventions Treatment of Speech Other Interventions Fluency Treatment Frequency and 1x/week for 10 visits Duration These treatments will address the objective and functional deficits as defined above. The patient will be advanced safely and appropriately in order for the patient to progress towards his/her prior level of function. Additional exercises will be introduced and as well as a comprehensive home exercise program upon discharge, if needed, ?to ensure carryover of functional gains achieved in the clinic. This treatment plan has been reviewed and agreement upon by the patient.
--- NOTE | 2024-05-01 15:45 | PCSTNOTE ---
Patient arrived for skilled ST session this date. She indicated that in her paperwork of EOB at home it stated that speech therapy was not covered due to referring physician diagnosis. Patient's doctor was called and a voicemail was left through insurance schedular to follow up regarding next steps and to avoid the patient having to pay out of pocket for sessions. From the insurance schedular standpoint she reported that the insurance indicated no prior authorization.
--- NOTE | 2024-05-06 12:27 | PCSTNOTE ---
Spoke with patient's regarding insurance coverage for speech and current authorization for coverage for 10 visits with response in understanding. Spoke with insurance/scheduling at [facility] center and they stated that the patient was authorized for skilled ST visits. Patient is scheduled to be seen on Monday05-08-24.
--- NOTE | 2024-05-15 14:41 | OPREHPOC ---
Outpatient Therapy Plan of Care This is a Multidisciplinary Plan of Care that may contain components documented by all disciplines (PT, OT, and ST.) PT Problem 1 PT Problem #1 Knowledge Deficit PT Goal 1 Goal / Goal Update [place] with HEP 05-15-24 progress goal met continue to progress Target Visit 16 PT Goal 2 Goal / Goal Update Report neck and hip pain no greater than 2/10 for 2 consecutive weeks 05-15-24 progress goal not met NEW GOAL: 1* decrease pain of neck to 3/10 at worst 2* pt report one headache/week, with duration of 4 hours Target Visit 16 PT Problem 2 PT Problem #2 Impaired Strength PT Goal 1 Goal / Goal Update 1. Improve nick hip flexion strength to 4+/5 to improve foot clearence with gait 2. Improve nick hip abduction strength to 4/5 to improve lateral stability with gait mechanics and transfer 3. Improve nick knee strength to 5/5 to improve stability with transfer and gait 05-15-24 progress goals met Target Visit 10 Progress Met PT Goal 2 Goal / Goal Update 05-15-24 progress NEW goal: *increase cervical-thoracic strength to 4+/5 for stability to neck and shoulders Target Visit 16 PT Problem 3 PT Problem #3 Impaired Functional Mobility PT Goal 1 Goal / Goal Update 1. Improve Tinetti score by 6 points to reduce fall risk and improve functional mobility 2. Improve ability to maintain balance on uneven surface for 30 seconds without loss of balance 3. Improve 2 minute walk test to 300' 05-15-24 progress goals met Target Visit 10 Progress Met PT Goal 2 Goal / Goal Update 05-15-24 progress NEW GOAL: * pt report return to work for 4 hours at time Target Visit 16 OT Problem 1 OT Problem #1 Knowledge Deficit OT Goal 1 Goal / Goal Update Patient to be independent with instructed materials. Target Visit 10 OT Problem 2 OT Problem #2 Impaired Coordination OT Goal 1 Goal / Goal Update Patient to improve functional fine motor coordination for writing and typing tasks as measured by improving 9-hole peg test to 24 seconds or less with the left hand. Target Visit 10 OT Problem 3 OT Problem #3 Impaired Strength OT Goal 1 Goal / Goal Update Patient to improve left UE strength for ADLs to facilitate return to cleaning, carrying a laundry basket, and cooking as measured by improving left UE strength to: - left gross shoulder strength to 4+/5 - left gross elbow strength 4+/5 - left shaker repairer strength to 50 lbs. Target Visit [address] Problem #[address] Goal 1 Goal / Goal Update 1. Patient will participate in home programming to promote carryover/generalization of skills to patient's various environments. Target Visit [address] Problem #[address] Goal 1 Goal / Goal Update 1. Patient will participate in automatic speech tasks with fluent speech and 0-10% occurrence of blocking episodes through use of trained fluency strategies. 2. Patient will participate in open ended cues speech tasks with fluent speech and 0-10% occurrence of blocking episodes through use of trained fluency strategies. 3. Patient will participate in higher level confrontational naming with fluent speech and 0-10 % occurrence of blocking episodes through use of trained fluency strategies. 4. Patient will participate in stating object function speech tasks with fluent speech and 0-10% occurrence of blocking episodes through use of trained fluency strategies. 5. Patient will complete divergent/convergent naming tasks with 15+ items within a 1 minute time frame to improve fluency of speech and verbal expression skills. Target Visit 10
--- NOTE | 2024-05-15 14:41 | PTOPPROG ---
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 She has done some computer work to get started on using the computer more; NECK: pain range in the past week: 2-6/10; neck stiff, tight; tender to touch over occipital area L > R; one headache in the past week, lasting all day long have history of chronic back and hip pain; Assessment PT Clinical Summary Christi has received 10 PT sessions. She has improved in all areas with mobility with PT: increased strength of LEs and dynamic balance : 2 minute walking test distance of 400'; Tinetti balance score of 28/28 and Boggs balance rating of 56/56; Continues to have neck pain and headaches, but decreased with pain range of 2-6/10 and one headache in the past week; continues to have tightness over cervical and upper traps musculature. 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 The goals were achieved for mobility and balance, but not for neck pain. Continue PT for cervical treatment and monitor her as she increases her activity level for return to work. Plan of Care Interventions Electrical Stimulation,Hot Pack/Cold Pack,Manual Therapy,Neuro Re-education,Patient/Caregiver Education,Therapeutic Activities,Therapeutic Exercise,Ultrasound,Other Other Interventions taping PT Services Indicated Yes Treatment Frequency and 1-2x/wk for 6 visits Duration These treatments will address the objective and functional deficits as defined above. The patient will be advanced safely and appropriately in order for the patient to progress towards his/her prior level of function. Additional exercises will be introduced and as well as a comprehensive home exercise program upon discharge, if needed, ?to ensure carryover of functional gains achieved in the clinic. This treatment plan has been reviewed and agreement upon by the patient.
--- NOTE | 2024-05-22 14:23 | BUSTOPDC ---
Assessment and note entered by Katelynn Roman, [employer] Evaluation Information Assessment Status Discharge Diagnosis G43.401 Hemiplegic status migrainosus Other ICD-10 Condition Codes ( F98.[address]) Subjective Information Patient had a severe onset of a migraine which resulted in left side weakness and symptoms of a stroke after the onset. Patient was then sent by helicopter from [facility] to [facility] for administration of TPA for possible stroke. While there patient underwent extensive testing through MRI, CAT scans, and neurological testing. Recommendation was given for intensive inpatient therapy but the patient decided to pursue outpatient due to being gone from her family and the needs at home. Patient reported that she was not seen for skilled ST while in the hospital. Patient currently is being seen for OT and PT due to ongoing left side arm, hand and leg weakness. While at [facility] patient did not have any speech therapy treatment but experienced difficulty with word retrieval and often getting stuck when she attempts to say certain words. During the initial evaluation patient reported that she felt that the difficulties were less frequent than they were but she continues to experience difficulty and can become very frustrated. 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 She notices an increase in verbal expression difficulties as the day progresses and she becomes more fatigued. Throughout the course of treatment patient presented with frequent dysfluencies within various speech tasks resulting in frequent blocks lasting seconds in length. Patient recently has reported that the dysfluent speech has completely gone away and has not experienced any disfluencies within speech for over 1 week. Patient feels her speech and overall cognitive- communication skills are very close to where she was at previously and is ready for discharge at this time. Education regarding ways to continue to target skills to improve fluency of speech and decrease risk for dysfluent episodes. Reported Pain Level Pain Score 0,4: Self Report Pain Score 0: Self Report Pain Score 0: Self Report Pain Score 2: Self Report Pain Score 0: Self Report Pain Score 0,0,6: Self Report Pain Score 0: Self Report Pain Score 0: Self Report Pain Score 2,0,6: Self Report Pain Score 0: Self Report Pain Score 4,2,6: Self Report Pain Score 0: Self Report Pain Score 0: Self Report Pain Score 4,2,4: Self Report Pain Score 4,2,4: Self Report Pain Score 0: Self Report Pain Score 2,4,2: Self Report Pain Score 3,4,3: Self Report Pain Score 4,3,4: Self Report Pain Score 4: Self Report Pain Score 0: Self Report Pain Score 3: Self Report Additional Pain Score Comments NECK: pain range in the past week: 2-6/10; neck stiff, tight; tender to touch over occipital area L > R; one headache in the past week, lasting all day long have history of chronic back and hip pain; Assessment ST Clinical Summary Patient was referred for a skilled ST evaluation due to a recent hemiplegic status migrainosus which resulted in left side weakness and symptoms of a stroke after the onset. Patient was sent by helicopter from [facility] to [facility] on for tPA. Patient was admitted for 5 days and went through extensive testing. It was recommended for intensive inpatient therapy but patient decided on outpatient therapy to better fit their life and needs at home. Since 03-22-24 the patient reported that her communication skills have gotten better but she continues to struggle with her word finding skills with frequent searching for words and periods of getting stuck in conversation. She reported that she does not have difficulty when reading items out loud. Her sister reported that she notices the changes in the patient's speech. 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 The patient indicated that she is worried about her verbal expression skills when attempting to communicate with others within the workplace. Throughout the initial evaluation the patient presented with mild word finding difficulties/ periods of getting stuck in her speech. A portion of the [facility] Adult Language Evaluation was given during the evaluation with the noted difficulties below: Automatic speech: When attempting to name the months of the year the patient presented with a sudden stop (block) and appeared stuck when attempting to say August. The patient presented with facial tension within the cheeks and lips along with neck tension when attempting to say the target word. Open ended cued speech: Patient patient presented with difficulty attempting to complete the phrase The doctor will be ___ with facial tension and another episode of stuttering (a block). The patient eventually got the target word out. Patient presented with 20% of targets stuttered within open ended cued speech task. Stating object function: Patient presented with difficulty stating what you do with a watch with another episode of stuttering (a block) indicating 20% of targets stuttered within object function task. Patient eventually got the target word out with increased time. Continued facial and neck tension noted when attempting to say the target word. Divergent namin items for animals and 15+ for states. Mild deficit in divergent naming skills. Patient reported that prior to this medical event the patient would have been able to name many more animals. Connected speech: cookie jar picture Patient generated 4 complex sentences to describe the picture with no evident stuttering during that specific task. Patient initially was thinking that she was experiencing anomia but once evaluation was completed the patient is presenting with mild fluency disorder. The patient described that within these pauses where no words are coming out she knows what the word is but experiences a stuck moment which is perceived as a block. Throughout skilled ST treatment patient presented with frequent dysfluent speech resulting in blocks last seconds in length with education regarding awareness to tension and reduction along with use of easy onset and light contact within speech. Over the course of 7 days the patient has reported no episodes of dysfluent speech and a reduction in tension within neck and face. Patient reported that her neurologist changed her headache medication and feels that is helping overall. She currently is challenging self daily and feels that she is ready to return to work with approval through neurology. Patient is very happy with current speech skills and is ready for discharge at this time. Education regarding tasks to continued to challenge self to prepare to return to work with response in understanding and agreement. Plan of Care Interventions Treatment of Speech Treatment Frequency and Discharge at this time. Duration
--- NOTE | 2024-05-31 11:59 | OTOPEVAL1 ---
Assessment and note entered by Jon Kaiser, OTR/L, CHT OT D/C SUMMARY 05/31/24 Diagnosis Hemiplegic status migrainosus, CVA Subjective Information Patient reports good functional progress with the left UE. She reports being able to hold a pen and write is back to about 95% normal. She reports being able to open a jar has improved, but does note some difficulty with gripping and twisting off a lid of a new jar. She reports she is back to brushing her hair to 100% normal. She reports she is back to being able to step in and out of the shower independently. She reports she is back to cooking, cleaning, and laundry without difficulty. She reports a residual deficit with trying to type and using her left thumb on the space bar. Assessment OT Clinical Summary Patient referred to OT with left sided weakness and incoordination, which had been impacting her ability to complete ADLs and work tasks with her dominant UE. She participated in 10 OT sessions focused on improved UE strength and coordination. She has progressed very well with therapy. Left UE gross strength returned to 4+/5 and is symmetrical to the right. Left ip paralegal strength improved from 31 to 68 lbs. 9-hole peg test improved from 36 to 24 seconds and is now WNL. Reviewed fine motor HEP as she continues to have thumb weakness, particularly with typing. Patient is currently independent with all materials and is ready for D/C. D/C with OT goals met. Plan of Care OT Services Indicated No These treatments will address the objective and functional deficits as defined above. The patient will be advanced safely and appropriately in order for the patient to progress towards his/her prior level of function. Additional exercises will be introduced and as well as a comprehensive home exercise program upon discharge, if needed, ?to ensure carryover of functional gains achieved in the clinic. This treatment plan has been reviewed and agreement upon by the patient.
--- NOTE | 2024-06-19 14:18 | PCPTNOTE ---
Canceled ill. AMIS
--- NOTE | 2024-06-24 15:30 | OPREHPOC ---
Outpatient Therapy Plan of Care This is a Multidisciplinary Plan of Care that may contain components documented by all disciplines (PT, OT, and ST.) PT Problem 1 PT Problem #1 Knowledge Deficit PT Goal 1 Goal / Goal Update [place] with HEP 05-15-24 progress goal met continue to progress 06-24-24 d/c pt canceled PT, goals not addressed Target Visit 16 PT Goal 2 Goal / Goal Update Report neck and hip pain no greater than 2/10 for 2 consecutive weeks 05-15-24 progress goal not met NEW GOAL: 1* decrease pain of neck to 3/10 at worst 2* pt report one headache/week, with duration of 4 hours 06-24-24 d/c pt canceled PT, goals not addressed Target Visit 16 PT Problem 2 PT Problem #2 Impaired Strength PT Goal 1 Goal / Goal Update 1. Improve nick hip flexion strength to 4+/5 to improve foot clearence with gait 2. Improve nick hip abduction strength to 4/5 to improve lateral stability with gait mechanics and transfer 3. Improve nick knee strength to 5/5 to improve stability with transfer and gait 05-15-24 progress goals met Target Visit 10 Progress Met PT Goal 2 Goal / Goal Update 05-15-24 progress NEW goal: *increase cervical-thoracic strength to 4+/5 for stability to neck and shoulders 06-24-24 d/c pt canceled PT, goals not addressed Target Visit 16 PT Problem 3 PT Problem #3 Impaired Functional Mobility PT Goal 1 Goal / Goal Update 1. Improve Tinetti score by 6 points to reduce fall risk and improve functional mobility 2. Improve ability to maintain balance on uneven surface for 30 seconds without loss of balance 3. Improve 2 minute walk test to 300' 05-15-24 progress goals met Target Visit 10 Progress Met PT Goal 2 Goal / Goal Update 05-15-24 progress NEW GOAL: * pt report return to work for 4 hours at time 06-24-24 d/c pt canceled PT, goals not addressed Target Visit 16 OT Problem 1 OT Problem #1 Knowledge Deficit OT Goal 1 Goal / Goal Update Patient to be independent with instructed materials. --OT D/C 05/31/24--- Met, D/C Target Visit 10 OT Problem 2 OT Problem #2 Impaired Coordination OT Goal 1 Goal / Goal Update Patient to improve functional fine motor coordination for writing and typing tasks as measured by improving 9-hole peg test to 24 seconds or less with the left hand. --OT D/C 05/31/24--- Met, D/C Target Visit 10 OT Problem 3 OT Problem #3 Impaired Strength OT Goal 1 Goal / Goal Update Patient to improve left UE strength for ADLs to facilitate return to cleaning, carrying a laundry basket, and cooking as measured by improving left UE strength to: - left gross shoulder strength to 4+/5 - left gross elbow strength 4+/5 - left local superintendent strength to 50 lbs. --OT D/C 05/31/24--- All goals met, D/C Target Visit [address] Problem #[address] Goal 1 Goal / Goal Update 1. Patient will participate in home programming to promote carryover/generalization of skills to patient's various environments. -Great carryover/generalization of skills to patient's environment with goal met. Target Visit [address] Problem 2 ST Problem #[address] Goal 1 Goal / Goal Update Updated: 05-22-24 discharge 1. Patient will participate in automatic speech tasks with fluent speech and 0-10% occurrence of blocking episodes through use of trained fluency strategies. -Goal met with 0% occurrence of dysfluent speech. 2. Patient will participate in open ended cues speech tasks with fluent speech and 0-10% occurrence of blocking episodes through use of trained fluency strategies. -Goal met with 0% occurrence of dysfluent speech. 3. Patient will participate in higher level confrontational naming with fluent speech and 0-10 % occurrence of blocking episodes through use of trained fluency strategies. -Goal met with 0% occurrence of dysfluent speech. 4. Patient will participate in stating object function speech tasks with fluent speech and 0-10% occurrence of blocking episodes through use of trained fluency strategies. -Goal met with 0% occurrence of dysfluent speech. 5. Patient will complete divergent/convergent naming tasks with 15+ items within a 1 minute time frame to improve fluency of speech and verbal expression skills. - goal met with more abstract categories given with 7-10 items named with minimal cues and no dysfluent episodes. Target Visit 10 Progress Met
--- NOTE | 2024-06-24 15:30 | PTOPDC ---
Assessment and note entered by Brittany Hardin, PT Assessment Status Discharge - Pt Not Present Diagnosis Hemiplegia Migranosis ICD-10 Condition Codes (PT) Cervicalgia M54.2,Weakness R53.1 Onset 03/22/24 Subjective Information pt called and canceled PT appointments due to feeling better and did not need any more treatments. Assessment PT Clinical Summary Christi has received a total of 14 PT sessions. She then called and canceled her remaining appointments due to feeling better. Discharge PT. The goals were not assessed. Plan of Care PT Services Indicated No
== END 2024-06-24 16:47 | disposition home or self-care (01) ==
LOC: ANHPT 14:45
PROVIDERS: PCP Physician Assistant; Visit Provider Physician Assistant
DX: G43.401 Hemiplegic migraine, not intractable, with status migrainosus (principal); F80.1 Expressive language disorder; F98.5 Adult onset fluency disorder
CPT/HCPCS: 92507; 92523; 97012; 97110; 97112; 97116; 97140; 97161; 97166; 97530

== ENCOUNTER 2024-11-20 13:11 | Outpatient (CLI) | payer BC, SELFPAY ==
--- NOTE | ~2024-11-20 | MM_ITS ---
EXAMINATION: MM screening [facility] BI w irma HISTORY: Screening TECHNIQUE: Craniocaudal and mediolateral oblique 3-D tomosynthesis images were obtained and synthetic 2-D images were generated. CAD analysis was submitted and interpreted. COMPARISON: Comparison to multiple prior studies sequentially, with oldest reviewed study dated 06/10/2021. BREAST PARENCHYMAL COMPOSITION: Not dense: There are scattered areas of fibroglandular density. FINDINGS: There is no evidence of suspicious mass, calcification, or architectural distortion to suggest malignancy in either breast. There has been no suspicious interval change. IMPRESSION: 1. No mammographic evidence of malignancy. 2. Recommend routine screening mammography in one year. BI-RADS Category 1: Negative Reviewed, dictated and finalized at location B.
--- OUTSIDE RECORDS SUMMARY | 2024-11-20 13:15 | XMS_ITS | Clinical Summary ---
Author Organization [facility] Address [address] [place] [address] Care Team Providers Care Real Estate Sales Manager Name Role Phone Ebonie George Primary [facility] [...] on file Legal Sex Female 10:07 AM MANAGER NEWS Gender Identity Not on file Sexual Orientation Not on file Obstetrics History Last Filed Vital Signs Vital Sign Reading Time Taken Comments Blood Pressure - - Pulse - - Temperature - - Respiratory Rate - - Oxygen Saturation - - Inhaled Oxygen Concentration - - Weight 72.6 kg (160 lb) 11/11/2019 10:47 AM CDT Height 167.6 cm (5' 6) 11/11/2019 10:47 AM CDT Body Mass Index 25.82 11/11/2019 10:47 AM CDT Plan of Treatment Not on file Insurance [employer] PREFERRED BLUE [employer]ESS OOS Care Teams Real Estate Sales Manager Relationship Specialty Start Date End Date Ebonie George PA PCP - General Physician Die Keeper 10/21/19
--- OUTSIDE RECORDS SUMMARY | 2024-11-20 13:15 | XMS_ITS | Clinical Summary ---
Author Organization [facility] [employer] Address [address] [facility] [facility] [place] [address] Care Team Providers Care Hotel Staff Member Name Role Phone Ebonie Garcia Primary Care Pr ovider Source Comments [facility],non-owned Affiliates and Associated Physician Practices is amultiple site organization consisting of ambulatory clinics and hospital sitesin [place], [place], [place] and [place]. This disclosure is being madepursuant to the Care Everywhere program and may not contain all information available regarding this patient. 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 * Be aware that medications may not be up to date on this document. Alwaysverify current medications with the patient. acetaminophen (Tylenol) 500 MG tablet Take 2 (two) tablets by mouth every 6 hours as needed Maximum allowable Acetaminophen amount = 4 Grams (4000 mg) / 24 hours. 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, not intractable Take 1 (one) tablet by mouth 2 times daily 60 tablet 5 09/06/19 25 Active Active Problems Problem Noted Date Diagnosed Date Dysarthria 03/22/2024 Weakness 03/22/2024 Family history of hyperlipidemia 03/22/2024 Family history of hypertension 03/22/2024 Anxiety 03/22/2024 Acute nonintractable headache 03/22/2024 Overweight 08/11/2021 Syncope 06/21/2021 Chest pain 01/19/2015 Dizziness 01/19/2015 Hypotension 01/19/2015 Personal history of nicotine dependence 01/20/20 15 History of panic attacks Encounters Date Type Department Care Team Description 11/08/2024 Travel 09/05/2024 3:30 PM CDT Office Visit [facility] - Neurology [address] [place] [phone] Fay Cervantes, GASKET SUPERVISOR-CHEMICAL PUMPER Migraine with aura and without status migrainosus, not intractable (Primary Dx); Hemiplegic migraine without status migrainosus, not intractable 09/05/2024 Travel from Last 3 Months Social History Tobacco Use Types Packs/Day Years Used Date Smoking Tobacco: Former Alcohol Use Standard Drinks/Week Comments Never 0 (1 standard drink = 0.6 oz pur e alcohol) AUDIT-C Answer Date Recorded Q1: How often do you have a drink containing alcohol? Never 03/22/2024 Q2: How many drinks containi ng alcohol do you have on a typical day when you are drinking? Patient does not drink Q3: How often do you have si x or more drinks on one occasion? Never 03/22/2024 Overall Financial Resource Strain (CARDIA) Answe r Date Recorded How hard is it for you to pa y for the very basics like food, housing, medical care, and heating? Not very hard 03/25/2024 PHQ-2 Answer Date Recorded Patient Health Questionnaire-2 Score 0 03/25/2024 [employer] of Occupat ional Health - Occupational Stress Questionnaire Answer Date Recorded Do you feel stress - tense, restless, nervous, or anxious, or unable to sleep at night because your mind is troubled all the time - these days? Patient unable to answer 03/25/2024 Hunger Vital Sign Answer Date Recorded Within the past 12 months, y ou worried that your food would run out before you got the money to buy more. Never true 03/25/19 25 Within the past 12 months, t he food you bought just didn't last and you didn't have money to get more. Never true 03/25/2024 PRAPARE - Transportation Answer Date Re corded In the past 12 months, has l ack of transportation kept you from medical appointments or from getting medications? No 04/2024 In the past 12 months, has l ack of transportation kept you from meetings, work, or from getting things needed for daily living? No 03/25/2024 Housing Stability Vital Sign Answer Mendez e Recorded In the last 12 months, was t here a time when you were not able to pay the mortgage or rent on time? No 03/25/2024 In the past 12 months, how m any times have you moved where you were living? 0 03/25/2024 At any time in the past 12 m [facility], were you homeless or living in a chcf (including now)? No 03/25/2024 Comments Unknown Sex and Gender Information Value Date Recorded Sex Assigned at Not on file Legal Sex Female 12:34 PM MAPPING ANALYST Gender Identity Not on file Sexual Orientation Not on file Last Filed Vital Signs Vital Sign Reading Time Taken Comments Blood Pressure 103/68 09/05/2024 3:28 PM CDT Pulse 61 09/05/2024 3:28 PM CDT Temperature 36.5 C (97.7 F) 03/26/2024 12:11 PM MAPPING ANALYST Respiratory Rate 18 03/26/2024 12:11 PM MAPPING ANALYST Oxygen Saturation 98% 09/05/2024 3:28 PM CDT Inhaled Oxygen Concentration - - Weight 77.6 kg (171 lb) 09/05/2024 3:28 PM CDT Height 167.6 cm (5' 6) 09/05/2024 3:28 PM CDT Body Mass Index 27.6 09/05/2024 3:28 PM CDT Plan of Treatment Upcoming Encounters Date Type Department Care Team (Late st Contact Info) Description 11/21/2024 4:00 PM CDT Video Visit [facility] - Neurology [address] [place] [phone] Fay Cervantes, RAEGAN-CHEMICAL PUMPER [address] [facility] [address] [place] [phone] 01/08/2025 3:30 PM MAPPING ANALYST Video Visit [facility] - Neurology [address] [place] [phone] Fay Cervantes GASKET SUPERVISOR-CHEMICAL PUMPER [address] [facility] [address] [place] [phone] Health Maintenance Due Date Last Done Comments LIPID TESTING 1980 MAMMOGRAM 1980 HIV SCREENING 07/08/1995 HEPATITIS C SCREENING 07/03/1998 DTAP/TDAP/TD VACCINES (1 - Tdap) 07/08/1999 HEPATITIS B VACCINE (1 of 3 - 19+ 3-dose series) 07/08/1999 PAP SMEAR 2001 HPV VACCINE (1 - 3-dose SCDM series) 07/08/2007 COVID-19 VACCINE (4 - 2024- season) 2024 02/25/2021, 06/08/2020, 05/18/2020 INFLUENZA VACCINE (#1) 2024 4, 12/03/2020, 01/19/2019, Additional history exists SCREENING FOR DIABETES 03/26/2027 5, 03/26/2024, 03/26/2024, Additional history exists ZOSTER VACCINE (1 of 2) 2030 DEPRESSION SCREENING Completed 05/06/2024 HIB VACCINE Aged Out No longer eligi ble based on patient's age to complete this topic MENINGOCOCCAL (Group B) VACCINE SHARED DECISION-MAKING Aged Out No longer eligible based on patient's age to complete this topic MENINGOCOCCAL GROUPS A/C/Y/W VACCINE Aged Out No longer eligible based on patient's age to complete this topic PNEUMOCOCCAL VACCINE Aged Out No long er eligible based on patient's age to complete this topic Procedures Procedure Name Priority Date/Time Associated Diagnosis Comments BASIC METABOLIC PANEL (CALCIUM TOTAL) Routine 03/26/2024 2:17 AM MAPPING ANALYST Dysarthria from Last 3 Months or Most Recently Relevant to Health Maintenance Results * (ABNORMAL) BASIC METABOLIC PANEL (CALCIUM TOTAL) (03/26/2024 2:17 AM MAPPING ANALYST) BUN 8 7 - 26 mg/dL 03/26/2024 2:54 AM [facility] Creatinine 0.87 0.56 - 0.96 mg/dL 03/26/2024 2:54 AM [facility] Sodium 138 136 - 145 mmol/L 03/26/2024 2:54 AM [facility] Potassium 4.8(H) 3.5 - 4.5 mmol/L 03/26/2024 2:54 AM [facility] Chloride 108(H) 98 - 107 mmol/L 03/26/2024 2:54 AM [facility] CO2 25 22 - 29 mmol/L 03/26/2024 2:54 AM [facility] Glucose 88 70 - 99 mg/dL 03/26/2024 2:54 AM [facility] Calcium 8.5 8.4 - 10.2 mg/dL 03/26/2024 2:54 AM [facility] Anion Gap 5(L) 6 - 16 03/26/2024 2:54 AM [facility] BUN/Creatinine Ratio 9 7 - 23 03/26/2024 2:54 AM [facility] Osmolality Calculated 284 275 - 295 mOsm/kg 03/26/2024 2:54 AM [facility] eGFR by CKD-EPI 85(L) >=90 mL/min/1.7 3 m2 03/26/2024 2:54 AM [facility] Blood BLOOD SPECIMEN / Unknown Lab Venipuncture / Unknown 03/26/2024 2:17 AM [facility] 03/26/2024 2:27 AM [facility] Jarek Coates MD LAB - CHEMISTRY ORDERABLES Final Result [facility] [address] [place] [address], [facility] [phone] from Last 3 Months or Most Recently Relevant to Health Maintenance [place] [address] [facility] [place] [address] [place] [address] ANTHEM ANTHEM ANTHEM Advance Directives * Full Code (Latest Code Status on File) Date Activated Date Inactivated Comments 03/22/2024 1:32 PM 03/26/2024 4:41 PM Care Teams Hotel Staff Member Relationship Specialty Start Date End Date Ebonie Garcia PA [address] [place] [phone] PCP - General Physician Waiter/Waitress First Class 03/22/24
== END 2024-11-20 13:12 | disposition home or self-care (01) ==
LOC: ANHFOHIMG 13:12
PROVIDERS: PCP Physician Assistant; Visit Provider Obstetrics & Gynecology
DX: Z12.31 Encounter for screening mammogram for malignant neoplasm of breast (principal)
CPT/HCPCS: 77063; 77067

== ENCOUNTER 2024-12-10 10:56 | Outpatient (CLI) | payer BC, SELFPAY ==
--- OUTSIDE RECORDS SUMMARY | 2024-12-10 13:47 | XMS_ITS | Clinical Summary ---
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
--- OUTSIDE RECORDS SUMMARY | 2024-12-10 13:47 | XMS_ITS | Clinical Summary ---
Author Organization [facility] Address [address] [place] [address] Care Team Providers Care Manager Sap Name Role Phone Ebonie Garcia Primary Care Pr ovider Source Comments [facility],non-owned Affiliates and Associated Physician Practices is amultiple site organization consisting of ambulatory clinics and hospital sitesin [place], [place], [place]. This disclosure is being madepursuant to the Care Everywhere program and may not contain all information available regarding this patient. 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, not intractable Take 1 (one) tablet by mouth 2 times daily 60 tablet 5 09/06/19 25 025 Discontin ued(Reord er) Active Problems Problem Noted Date Diagnosed Date Dysarthria 03/22/2024 Weakness 03/22/2024 Family history of hyperlipidemia 03/22/2024 Family history of hypertension 03/22/2024 Anxiety 03/22/2024 Acute nonintractable headache 03/22/2024 Overweight 08/11/2021 Syncope 06/21/2021 Chest pain 01/19/2015 Dizziness 01/19/2015 Hypotension 01/19/2015 Personal history of nicotine dependence 01/20/20 15 History of panic attacks Encounters Date Type Department Care Team Description 11/21/2024 4:00 PM CDT Video Visit [facility] - Neurology [address] [place] [phone] Fay Cervantes, GI ASST-REWEAVER Hemiplegic migraine without status migrainosus, not intractable ; Migraine with aura and without status migrainosus, not intractable 11/08/2024 Travel from Last 3 Months Social History [...] Recorded Patient Health Questionnaire-2 Score 0 03/25/2024 [facility] of Occupat ional Health - Occupational Stress [...] any time in the past 12 m [facility], were you homeless or living in a longterm (including now)? No 03/25/2024 Comments Unknown Sex and Gender Information Value Date Recorded Sex Assigned at Not on file Legal Sex Female 12:34 PM KILN FEEDER Gender Identity Not on file Sexual Orientation Not on file Last Filed Vital Signs Vital Sign Reading Time Taken Comments Blood Pressure 103/68 09/05/2024 3:28 PM CDT Pulse 61 09/05/2024 3:28 PM CDT Temperature 36.5 C (97.7 F) 03/26/2024 12:11 PM KILN FEEDER Respiratory Rate 18 03/26/2024 12:11 PM KILN FEEDER Oxygen Saturation 98% 09/05/2024 3:28 PM CDT Inhaled Oxygen Concentration - - Weight 77.6 kg (171 lb) 09/05/2024 3:28 PM CDT Height 167.6 cm (5' 6) 09/05/2024 3:28 PM CDT Body Mass Index 27.6 09/05/2024 3:28 PM CDT Plan of Treatment Upcoming Encounters Date Type Department Care Team (Late st Contact Info) Description 01/08/2025 3:30 PM KILN FEEDER Video Visit [facility] - Neurology [address] [facility] [place] [address] Fay Cervantes, GI ASST-REWEAVER [address] [phone] Health Maintenance Due Date Last Done Comments LIPID TESTING 1980 MAMMOGRAM 1980 HIV SCREENING 07/08/1995 HEPATITIS C SCREENING 07/03/1998 DTAP/TDAP/TD VACCINES (1 - Tdap) 07/08/1999 HEPATITIS B VACCINE (1 of 3 - 19+ 3-dose series) 07/08/1999 PAP SMEAR 2001 HPV VACCINE (1 - 3-dose SCDM series) 07/08/2007 COVID-19 VACCINE ( season) 2024 02/25/2021, 06/08/2020, 05/18/2020 INFLUENZA VACCINE [...] PANEL (CALCIUM TOTAL) Routine 03/26/2024 2:17 AM KILN FEEDER Dysarthria from Last 3 Months or Most Recently Relevant to Health Maintenance Results * (ABNORMAL) BASIC METABOLIC PANEL (CALCIUM TOTAL) (03/26/2024 2:17 AM KILN FEEDER) BUN 8 7 - 26 mg/dL 03/26/2024 2:54 AM [facility] Creatinine 0.87 0.56 - 0.96 mg/dL 03/26/2024 2:54 AM [facility] Sodium 138 136 - 145 mmol/L 03/26/2024 2:54 AM [facility] Potassium 4.8(H) 3.5 - 4.5 mmol/L 03/26/2024 2:54 AM [facility] Chloride 108(H) 98 - 107 mmol/L 03/26/2024 2:54 AM [facility] CO2 25 22 - 29 mmol/L 03/26/2024 2:54 AM [facility] Glucose 88 70 - 99 mg/dL 03/26/2024 2:54 AM [facility] Calcium 8.5 8.4 - 10.2 mg/dL 03/26/2024 2:54 AM [facility] Anion Gap 5(L) 6 - 16 03/26/2024 2:54 AM [facility] BUN/Creatinine Ratio 9 7 - 23 03/26/2024 2:54 AM [facility] Osmolality Calculated 284 275 - 295 mOsm/kg 03/26/2024 2:54 AM [facility] eGFR by CKD-EPI 85(L) >=90 mL/min/1.7 3 m2 03/26/2024 2:54 AM [facility] Blood BLOOD SPECIMEN / Unknown Lab Venipuncture / Unknown 03/26/2024 2:17 AM [facility] 03/26/2024 2:27 AM [facility] Jarek Coates MD LAB - CHEMISTRY ORDERABLES Final Result [facility] [address] [place] [address], [facility] [phone] from Last 3 Months or Most Recently Relevant to Health Maintenance [place] [address] [place] [address] [place] [address] [address] ANTHEM ANTHEM Advance Directives * Full Code (Latest Code Status on File) Date Activated Date Inactivated Comments 03/22/2024 1:32 PM 03/26/2024 4:41 PM Care Teams Manager Sap Relationship Specialty Start Date End Date Ebonie Garcia PA [address] [place] [phone] PCP - General Physician Machine Operator Farmworker 03/22/24
== END 2024-12-10 10:57 | disposition home or self-care (01) ==
LOC: ANHAUDIO 10:57
PROVIDERS: PCP Physician Assistant; Visit Provider Otolaryngology
DX: H93.13 Tinnitus, bilateral (principal); H93.8X2 Other specified disorders of left ear; R42 Dizziness and giddiness; G43.909 Migraine, unspecified, not intractable, without status migrainosus
CPT/HCPCS: 92557; 92567